=== PATIENT | female | born 1960 | race Caucasian/White ===

== ENCOUNTER → 2017-12-28 09:37 | Outpatient (CLI) | payer OTHER, SELFPAY ==
[2017-12-28 12:41] LABS: ALB/GLOB Ratio 0.9 RATIO (0.9-2.4); AST(SGOT) 20 U/L (15-37); Alanine Aminotransfer ALT/SGPT 30 U/L (13-56); Albumin, Serum 3.8 g/dL (3.2-5.0); Alkaline Phosphatase 69 U/L (45-117); Anion Gap 3 (5-15); BUN 14 mg/dL (7-18); BUN/Creat Ratio 17.5 RATIO (10-20); Calcium,Total 9.1 mg/dL (8.5-10.1); Chloride 106 mmol/L (98-107); Cholesterol 203 mg/dL (200); EST Glomerular Filtration Rate 79 mL/min (>60); Est Glom Filt Rate - Afr Amer 95 mL/min (>60); Globulin 4.2 g/dL (2.2-4.2); Glucose 89 mg/dL (74-106); High Density Lipoprotein 44 mg/dL; Potassium 4.6 mmol/L (3.5-5.1); Sodium Level 139 mmol/L (136-145); Thyroid Stim Hormone (TSH) 0.03 uIU/mL (0.358-3.74); Triglycerides 192 mg/dL; Very Low Density Lipoprotein 38 mg/dL (5-40)
== END ==
PROVIDERS: Family Provider Family Medicine; PCP Family Medicine; Visit Provider Family Medicine
DX: E78.2 Mixed hyperlipidemia (principal)
CPT/HCPCS: 36415; 80053; 80061; 84443

== ENCOUNTER → 2018-12-25 | Outpatient (CLI) | payer MEDICARE, SELFPAY ==
[2018-12-25 10:58] VITALS: BMI 46.2
[2018-12-25 13:22] LABS: ALB/GLOB Ratio 0.9 RATIO (0.9-2.4); AST(SGOT) 21 U/L (15-37); Alanine Aminotransfer ALT/SGPT 31 U/L (13-56); Albumin, Serum 3.8 g/dL (3.2-5.0); Alkaline Phosphatase 66 U/L (45-117); Anion Gap 8 (5-15); BUN 18 mg/dL (7-18); BUN/Creat Ratio 23.2 RATIO (10-20); Calcium,Total 8.6 mg/dL (8.5-10.1); Chloride 105 mmol/L (98-107); Cholesterol 149 mg/dL (200); Creatinine, Serum 0.78 mg/dL (0.55-1.02); EST Glomerular Filtration Rate 81 mL/min (>60); Est Glom Filt Rate - Afr Amer 99 mL/min (>60); Globulin 4.1 g/dL (2.2-4.2); Glucose 90 mg/dL (74-106); High Density Lipoprotein 48 mg/dL; Potassium 4.3 mmol/L (3.5-5.1); Protein, Total 7.9 g/dL (6.4-8.2); Sodium Level 141 mmol/L (136-145); Thyroid Stim Hormone (TSH) 6.24 uIU/mL (0.358-3.74); Triglycerides 166 mg/dL; Very Low Density Lipoprotein 33 mg/dL (5-40)
== END | disposition home or self-care (01) ==
PROVIDERS: Family Provider Family Medicine; PCP Family Medicine; Visit Provider Family Medicine
DX: E03.9 Hypothyroidism, unspecified (principal); E78.5 Hyperlipidemia, unspecified
CPT/HCPCS: 36415; 80053; 80061; 84443

== ENCOUNTER → 2019-01-10 | Outpatient (CLI) | payer MEDICARE, SELFPAY ==
[2018-12-25 10:58] VITALS: BMI 46.2
[2019-01-10 13:15] LABS: T4 Free Direct 0.58 ng/dL (0.76-1.46)
[2019-01-13 12:06] LABS: Thyroid Peroxidase AB 11 IU/mL (0-34)
[2019-01-13 12:48] LABS: Thyroglobulin Antibody 47.3 IU/mL (0.0-0.9)
== END | disposition home or self-care (01) ==
LOC: BIMLAB 10:33
PROVIDERS: Family Provider Family Medicine; PCP Family Medicine; Visit Provider Family Medicine
DX: E03.9 Hypothyroidism, unspecified (principal)
CPT/HCPCS: 36415; 84439; 86376; 86800

== ENCOUNTER → 2019-08-26 10:03 | Outpatient (CLI) | payer MEDICARE, SELFPAY ==
[2019-08-26 09:49] VITALS: BMI 46.2
[2019-08-26 12:46] LABS: ALB/GLOB Ratio 0.9 RATIO (0.9-2.4); AST(SGOT) 16 U/L (15-37); Alanine Aminotransfer ALT/SGPT 32 U/L (13-56); Albumin, Serum 3.7 g/dL (3.2-5.0); Alkaline Phosphatase 65 U/L (45-117); Anion Gap 4 (5-15); BUN 17 mg/dL (7-18); BUN/Creat Ratio 20.7 RATIO (10-20); Calcium,Total 8.8 mg/dL (8.5-10.1); Chloride 107 mmol/L (98-107); Cholesterol 168 mg/dL (200); Creatinine, Serum 0.82 mg/dL (0.55-1.02); EST Glomerular Filtration Rate 76 mL/min (>60); Est Glom Filt Rate - Afr Amer 92 mL/min (>60); Glucose 107 mg/dL (74-106); High Density Lipoprotein 50 mg/dL; Protein, Total 7.7 g/dL (6.4-8.2); Sodium Level 141 mmol/L (136-145); T4 Free Direct 0.64 ng/dL (0.76-1.46); Thyroid Stim Hormone (TSH) 3.11 uIU/mL (0.358-3.74); Triglycerides 220 mg/dL; Very Low Density Lipoprotein 44 mg/dL (5-40)
== END ==
PROVIDERS: PCP Family Medicine; Visit Provider Family Medicine
DX: I10 Essential (primary) hypertension (principal); G56.01 Carpal tunnel syndrome, right upper limb
CPT/HCPCS: 36415; 80053; 80061; 84439; 84443

== ENCOUNTER → 2020-04-29 07:39 | Outpatient (CLI) | payer MEDICARE, SELFPAY ==
[2020-04-20 12:53] VITALS: BMI 45.8
--- NOTE | 2020-04-29 07:40 | US_ITS ---
HISTORY: gabrielle colored stools COMPARISON: None TECHNIQUE: Sonographic images of the right upper quadrant of the abdomen using grayscale and color Doppler imaging. Number of images including paperwork: 113 FINDINGS: LIVER: Increased echogenicity with poor penetration with some sparing adjacent to the gallbladder fossa and arely hepatis. Right lobe measures 14.6 cm. GALLBLADDER: No gallstones. No significant gallbladder wall thickening. Sonographic Fields's sign not elicited per the airline lounge receptionist. BILE DUCTS: No significant biliary dilatation. CBD 4.1 mm. PANCREAS: Echogenic visualized pancreas. Tail partially obscured by bowel gas. RIGHT KIDNEY: Unremarkable, 11.7 cm. AORTA: Unremarkable visualized portions of the aorta. INFERIOR VENA CAVA: Unremarkable visualized portions of the inferior vena cava. FREE FLUID: None detected. US/Gallbladder IMPRESSION: No acute abdominal abnormality is sonographically apparent. Hepatic steatosis. at 2337 Reported and signed by: Sierra Phelps MD Electronically Signed: Sierra Phelps MD at 23:37 EDT Tel , Service support ,
== END ==
PROVIDERS: PCP Family Medicine; Referring Provider Family Medicine; Visit Provider Family Medicine
DX: R19.5 Other fecal abnormalities (principal)
CPT/HCPCS: 76705

== ENCOUNTER → 2020-06-28 | Outpatient (CLI) | payer MEDICARE, SELFPAY ==
[2020-06-15 10:05] VITALS: BMI 45.0
== END | disposition home or self-care (01) ==
LOC: LABSPEC 14:51
PROVIDERS: PCP Family Medicine; Referring Provider Surgery; Visit Provider Surgery
DX: R22.1 Localized swelling, mass and lump, neck (principal); L03.90 Cellulitis, unspecified
CPT/HCPCS: 87070; 87075; 87077; 87186; 87205

== ENCOUNTER → 2021-03-02 10:25 | Outpatient (CLI) | payer MEDICARE, SELFPAY ==
[2021-03-02 12:17] LABS: Absolute Lymphocyte Count 1.62 X10^3/uL (0.83-4.51); Absolute Neutrophil Count 2.8 X10^3/uL (2.0-7.7); Basophil# 0.04 X10^3/uL; Basophil% 0.8 % (0-1); Eosinophils% 3.8 % (0-5); Hematocrit 39.3 % (37-47); Hemoglobin 12.8 g/dL (12.0-15.0); Lymphocyte # 1.62 X10^3/ul (0.83-4.51); Lymphocyte % 31.1 % (19-41); Mean Corp Hgb Conc 32.6 g/dL (32-36); Mean Corpuscular Volume 92.3 fL (81-99); Mean Platelet Vol. 11.3 fl (6.2-12.0); Monocyte# 0.51 X10^3/uL; Monocyte% 9.8 % (0-10); NRBC Flagged by Analyzer 0 % (0-5); Neutrophil # 2.83 X10^3/uL (2.7-7.7); Neutrophil % 54.3 % (47-70); Platelet Count 214 K/mm3 (150-450); RBC Distribution Width CV 14.5 % (11.6-14.6); RBC Distribution Width SD 49.2 fl (35.1-43.9); Red Blood Count 4.26 M/mm3 (4.2-5.4); White Blood Count 5.2 K/mm3 (4.4-11.0)
[2021-03-02 12:54] LABS: ALB/GLOB Ratio 0.9 RATIO (0.9-2.4); AST(SGOT) 18 U/L (15-37); Alanine Aminotransfer ALT/SGPT 33 U/L (13-56); Albumin, Serum 3.9 g/dL (3.2-5.0); Alkaline Phosphatase 66 U/L (45-117); Anion Gap 6 (5-15); BUN 13 mg/dL (7-18); BUN/Creat Ratio 14.9 RATIO (10-20); Chloride 104 mmol/L (98-107); Cholesterol 177 mg/dL (200); Creatinine, Serum 0.88 mg/dL (0.55-1.02); EST Glomerular Filtration Rate 70 mL/min (>60); Est Glom Filt Rate - Afr Amer 85 mL/min (>60); Globulin 4.3 g/dL (2.2-4.2); Glucose 99 mg/dL (74-106); High Density Lipoprotein 46 mg/dL; Magnesium 2.2 mg/dL (1.6-2.6); Potassium 3.9 mmol/L (3.5-5.1); Protein, Total 8.2 g/dL (6.4-8.2); Sodium Level 138 mmol/L (136-145); Triglycerides 282 mg/dL; Very Low Density Lipoprotein 56 mg/dL (5-40)
== END ==
PROVIDERS: PCP Family Medicine; Referring Provider Physician Assistant; Visit Provider Physician Assistant
DX: E03.9 Hypothyroidism, unspecified (principal); E78.2 Mixed hyperlipidemia; I10 Essential (primary) hypertension; K21.9 Gastro-esophageal reflux disease without esophagitis
CPT/HCPCS: 36415; 80053; 80061; 83735; 84443; 85025

== ENCOUNTER → 2021-03-16 12:11 | Outpatient (CLI) | payer MEDICARE, SELFPAY ==
--- NOTE | 2021-03-16 12:13 | BI_ITS ---
MAMMOGRAPHY - BILATERAL SCREENING REASON FOR EXAM: Female, 61 years old. Routine annual screening examination. PERTINENT HISTORY: Non-contributory. TECHNIQUE: Digital bilateral breast irineo (3D mammographic acquisition) in the CC and MLO projections. 2-D mediolateral oblique (MLO) and craniocaudad (CC) views of both breasts were obtained. CAD: Full Field Digital Mammography with Computer Added Detection was performed. COMPARISON: Comparison is made with prior outside examination dated 03/26/2017. FINDINGS: Breast Composition: The breasts are heterogeneously dense, which may obscure small masses. There are no dominant masses or suspicious calcifications. No other significant abnormalities are identified. There has been no significant change since the prior study. BI/SCRN MAMM (CAD)W/IRINEO BILAT IMPRESSION: Stable bilateral screening mammogram. Yearly follow-up mammogram recommended. (A) ASSESSMENT CATEGORY: BIRADS Category 1: Negative. A letter regarding these results will be sent to the patient by the facility within 30 days. Approximately 10% of breast cancers are not detected by mammography. A normal mammogram should not delay biopsy of a clinically suspicious abnormality. [id number] Electronically Signed: Tariq Arnold MD at 15:35 EDT , Service support ,
== END ==
PROVIDERS: PCP Family Medicine; Referring Provider Physician Assistant; Visit Provider Physician Assistant
DX: Z12.31 Encounter for screening mammogram for malignant neoplasm of breast (principal)
CPT/HCPCS: 77063; 77067

== ENCOUNTER 2021-04-12 10:54 | Day surgery (SDC) | payer MEDICARE, SELFPAY ==
--- NOTE | 2021-04-08 | IMM_PTH ---
PATIENT: LIAN DAMON LOC: EN U#:[id number] AGE/SX: 61/F ROOM: RE04/12/[address]: Dr. Jaylon Medina DO : 1960 BED: DIS: 04/12/2021 SPEC #: [id number] RECD: 04/13/21 13:51 STATUS: FELICIA REMike #: [id number] GABE: 04/08/21 00:[address]: Jaylon Medina DEPT: IMMUNOHISTOCHEMISTRY RECD BY: Darcy Crowe ENTERED: 04/13/21 13:52 SP TYPE: IMMUNO OTHR DR: Dr. Mehran Wilson, DO Tissues: A - Stomach, NOS Procedures: H Pylori (initial) PHYSICIAN & INSTITUTION [place] [id number] SPECIMEN INFORMATION: Tissue Source: A ? Antrum biopsy Clinical Info: GERD, Gonzalez?s esophagus Specimen Number: [id number] CPT code: 15421 METHODOLOGY: Deparaffinized sections of prefer/formalin-fixed tissue or PAP/DQ stained slides are incubated with monoclonal/polyclonal antibodies/oligonucleotide probes. Localization is made via biotin free immunoperoxidase method. Appropriate controls are performed and reacted as expected. Results on target cell population are indicated in the following table: RESULTS: ANTIBODY / CLONE RESULT Block A H Pylori (polyclonal) negative These tests were developed and their performance characteristics determined by [facility]. They may not have been cleared or approved by the U.S. Food and Drug Administration. The FDA has determined that such clearance or approval is not necessary. INTERPRETATION: A. Antrum, biopsy: Negative for Helicobacter pylori organisms. ANJANA:remi 04/14/2021
[2021-04-12] VITALS (7 sets, daily range): BP systolic 123–138; BP diastolic 77–87; PULSE 51–65; RESP 16–18; TEMP 36.1–37.4; O2SAT 94–98; BMI 47.5
--- NOTE | 2021-04-12 | GASB_PTH ---
PATIENT: LIAN DAMON LOC: EN U#:[id number] AGE/SX: 61/F ROOM: RE04/12/[address]: Dr. Jaylon Medina DO : 1960 BED: DIS: 04/12/2021 SPEC #: [id number] RECD: 04/12/21 15:30 STATUS: FELICIA JORDEN #: [id number] GABE: 04/12/21 00:[address]: Jaylon Medina DEPT: SURGICAL PATHOLOGY RECD BY: Moises Cochran ENTERED: 04/13/21 09:51 SP TYPE: Gastric Bx OTHR DR: Dr. Mehran Wilson DO Tissues: A - Gastric mucous membrane B - Esophageal mucous membrane C - Gastric mucous membrane Procedures: Special Stain Group II Surgery Specimen Level IV Alcian Blue/PAS (control) HEADER OPERATION: Colonoscopy, EGD ([facility]) PRE-OP DIAGNOSIS: GERD, Gonzalez?s esophagus TISSUE SUBMITTED: A ? Biopsy antrum for H. pylori and path, B ? Biopsy distal esophagus, C ? Biopsy hepatic flexure polyp MICROSCOPIC DIAGNOSIS A. Antrum biopsy: Mild gastritis. See microscopic description and comment. B. Distal esophagus, biopsy: Fragments of gastroesophageal mucosa with mild chronic inflammation. Intestinal metaplasia (goblet cell metaplasia) not identified. See comment. C. Hepatic flexure polyp, biopsy: Fragments of tubular adenoma. SJ:rg 04/14/2021 COMMENT A. The results of immunohistochemistry for Helicobacter pylori will be reported separately ([id number]). B. Alcian blue/PAS stain with matched control is used in the evaluation of the specimen. MICROSCOPIC DESCRIPTION Slides are reviewed. A. The specimen shows fragments of gastric mucosa with chronic inflammatory cell infiltrates in the lamina propria consisting of lymphocytes and plasma cells, consistent with mild chronic gastritis. GROSS DESCRIPTION A - Received in fixative is one container labeled with the patient's name and designated antrum biopsy. The specimen consists of two irregular fragments of light acosta soft tissue that in aggregate measure 0.5 x 0.5 x 0.1 cm. The specimen is totally submitted in one cassette. B - Received in fixative is one container labeled with the patient's name and designated biopsy distal esophagus. The specimen consists of two irregular fragments of light acosta soft tissue that in aggregate measure 0.6 x 0.3 x 0.1 cm. The specimen is totally submitted in one cassette. C - Received in fixative is one container labeled with the patient's name and designated biopsy hepatic flexure polyp. The specimen consists of multiple irregular fragments of light acosta soft tissue that in aggregate measure 0.7 x 0.3 x 0.1 cm. The specimen is totally submitted in one cassette. / SJ:rg 04/13/21 TC:1 CPT: 30861 x3, 81950
[2021-04-12] MEDS: Lactated Ringers 1,000 ML 100 ML IV (11:54)
--- NOTE | 2021-04-12 12:00 | HP.PCM_ITS ---
History and Physical Date of Admission: 04/12/21 KEITH DAMON, is a 61 F who presents to the office today to schedule surveillance of Gonzalez's esophagus and a personal history of polyps. She says that she was diagnosed with Gonzalez's esophagus several years ago. She says she has been on her omeprazole therapy. She is really bothered that her reflux gets bad to the point where it affects her singing. She says she would do anything so she could sing. She denies any dysphagia. She denies any chest pain or shortness of breath. She does not know she has a hiatal hernia. Her weight has been stable. She underwent colonoscopy 5 years ago and was discovered to have multiple adenomatous polyps that were removed. She is not having problems with her bowels at this time as long as she eats a balanced diet. She is not smoking cigarettes. She does take a 325 mg aspirin on a daily basis. She does not drink alcohol on a daily basis. She has no history of sleep apnea. She has not seen any blood in her stool. She denies any constipation or diarrhea. All other 16 review of systems are negative except of her body mentioned HPI. ROS Const Constitutional: No anorexia, fatigue, fever(s), weight change or sleep problems Eyes Eyes: No change in vision ENT ENT: Positive for tinnitus; No tongue swelling or throat swelling Resp Respiratory: No cough or shortness of breath Cardio Cardiology: Positive for leg pain with exertion and dyspnea on exertion Gastro GI: Positive for bloating and heartburn Genitourinary-Female: No difficulty urinating or burning urination Musc Musculoskeletal: Positive for joint pain, back pain, numbness, tingling, Arthritis and leg pain with exertion Skin Skin: No hair loss in leg, yellowing of the eye, itchy eyes, rash, skin ulcer or skin swelling Neuro Neurology: Positive for numbness and tingling; No confusion or memory loss Psych Psychiatric: No anxiety, No confusion and No memory loss Endo Endocrine: Positive for cold intolerance and heat intolerance; No fatigue or weight change Aller/Imm Allergy/Immunologic: No itchy eyes, throat swelling or tongue swelling Luis A/Lymp Hematologic/Lymphatic: Positive for easy bruising Exam Const General: cooperative and comfortable Nutritional Appearance: average body habitus and well nourished HENMT Head: normal to inspection Ears: hearing grossly normal bilaterally Nose: external nose normal Face and sinus: normal facial exam Mouth: oral mucosae normal Throat: posterior oropharynx normal Eyes General: appearance normal, both eyes and all related structures Neck Neck: normal visual inspection Chest Chest palpation & inspection: normal inspection of the chest and normal palpation of entire chest wall Resp Effort & Inspection: normal respiratory effort Auscultation: Bilateral: Clear to Auscultation Cardio Palpation: normal PMI Rate: regular rate Rhythm: regular rhythm GI Inspection: normal to inspection Auscultation: normal bowel sounds Percussion: normal to percussion Palpation: no hepatosplenomegaly Skin General: no rashes or lesions noted Neuro General: patient alert Extrem General: normal to inspection Psych Affect: normal affect Quality Reporting [facility] Screening ([facility]) Smoking Status: Never smoker Assessment and Plan Assessment and Plan (1) History of colonoscopy: Status: Acute Comment: w/ann 01/04/15, w/ann 11/20/11, Medications: New: polyethylene glycol 3350 (Miralax) 17 grams PO Q10M 238 grams 0RF Plan - Dr. Iyer Friend, DO: Patient has a personal history of polyps. She will undergo colonoscopy to the cecum. She was explained alternatives, risk, benefits including hours any missed polyps, perforation, bleeding, need for emergent surgery and . She would have an ASA of 3 she will take this with MiraLAX prep. Patient Instructions: Patient has a personal history of polyps (2) GERD (gastroesophageal reflux disease): Status: Chronic Qualifiers: Esophagitis presence: without esophagitis Qualified Code(s): K21.9 - Gastro-esophageal reflux disease without esophagitis Plan - Dr. Iyer Friend, DO: I will not change her dose of omeprazole at this time. It depends on what we see doing upper endoscopy.. (3) Barretts esophagus: Status: Acute Plan - Dr. Iyer Friend, DO: We will assess her esophagus to see if she has short segment versus long segment Gonzalez's esophagus. We will also see if she needs to be on dual PPI therapy and whether we should assess her for antireflux surgery. Coding Level of Care Code Off vis,new,level 3 Diagnoses History of colonoscopy Z98.890 GERD (gastroesophageal reflux disease) K21.9 Esophagitis presence: without esophagitis Barretts esophagus K22.70 03/29/21 0911 This is an updated H&P. No changes have been seen since patient underwent evaluation in the office.
--- NOTE | 2021-04-12 13:04 | OP.EGD_ITS ---
Patient Name: Carleen Garcia Procedure Date: 04/12/2021 12:10 PM Date of : 1960 Age: 61 Procedure: Upper GI endoscopy Indications: Heartburn Providers: Jaylon Medina DO Medicines: Monitored Anesthesia Care Patient Profile: This is a 61 year old female. Refer to note in patient chart for documentation of history and physical. Patient has symptoms. She is status post EGD for Gonzalez's biopsy within the past five years. Complications: No immediate complications. Procedure: Pre-Anesthesia Assessment: - Prior to the procedure, a History and Physical was performed, and patient medications and allergies were reviewed. The patient is competent. The risks and benefits of the procedure and the sedation options and risks were discussed with the patient. All questions were answered and informed consent was obtained. Patient identification and proposed procedure were verified by the physician in the pre-procedure area. Mental Status Examination: alert and oriented. Airway Examination: normal oropharyngeal airway and neck mobility. Respiratory Examination: clear to auscultation. CV Examination: normal. Prophylactic Antibiotics: The patient does not require prophylactic antibiotics. Prior Anticoagulants: The patient has taken no previous anticoagulant or antiplatelet agents. ASA Grade Assessment: II - A patient with mild systemic disease. After reviewing the risks and benefits, the patient was deemed in satisfactory condition to undergo the procedure. The anesthesia plan was to use moderate sedation / analgesia (conscious sedation). Immediately prior to administration of medications, the patient was re-assessed for adequacy to receive sedatives. The heart rate, respiratory rate, oxygen saturations, blood pressure, adequacy of pulmonary ventilation, and response to care were monitored throughout the procedure. The physical status of the patient was re-assessed after the procedure. After obtaining informed consent, the endoscope was passed under direct vision. Throughout the procedure, the patient's blood pressure, pulse, and oxygen saturations were monitored continuously. The Endoscope was introduced through the mouth, and advanced to the second part of duodenum. The upper GI endoscopy was accomplished without difficulty. The patient tolerated the procedure well. Moderate Sedation: Moderate (conscious) sedation was administered by the endoscopy nurse and supervised by the endoscopist. The patient's oxygen saturation, heart rate, blood pressure and response to care were monitored. Scope In: 12:18:35 PM Scope Out: 12:22:20 PM Total Procedure Duration Time 0 hours 3 minutes 45 seconds Findings: There were esophageal mucosal changes suspicious for Gonzalez's esophagus present in the lower third of the esophagus. Mucosa was biopsied with a cold forceps for histology in 4 quadrants at intervals of 1 cm in the lower third of the esophagus. A total of 3 specimen bottles were sent to pathology. Verification of patient identification for the specimen was done. Estimated blood loss was minimal. The entire examined stomach was normal. The second portion of the duodenum was normal. Impression: - Esophageal mucosal changes suspicious for Gonzalez's esophagus. Biopsied. - Normal stomach. - Normal second portion of the duodenum. - The findings are suspicious for Gonzalez's esophagus. - Atrophic gastritis. Biopsied. - Normal second portion of the duodenum. Recommendation: - Discharge patient to home. - Resume previous diet. - Continue present medications. - Await pathology results. - Repeat upper endoscopy in 1 year for surveillance. - Return to GI office in 1 week. Procedure Code(s): --- Professional --- 69948, Esophagogastroduodenoscopy, flexible, transoral; with biopsy, single or multiple CPT copyright 2017 [employer]. All rights reserved. The codes documented in this report are preliminary and upon beautician apprentice review may be revised to meet current compliance requirements. Jaylon Medina DO 04/12/2021 1:03:42 PM This report has been signed electronically. Number of Addenda: 1 Note Initiated On: 04/12/2021 12:10 PM Addendum Number: 1 Addendum Date: 03/09/2022 4:16:38 PM MAC was used instead of moderate sedation for this patient. Jaylon Medina DO 03/09/2022 4:16:43 PM This report has been signed electronically.
--- NOTE | 2021-04-12 13:05 | OP.CCLET_ITS ---
03/09/2022 Mehran Wilson Re : Upper GI endoscopy procedure for Carleen Garcia Dear Dr. Wilson This procedure was performed on Monday, April 12, 2021. My impressions and recommendations are as follows: Impressions : - Esophageal mucosal changes suspicious for Gonzalez's esophagus. Biopsied. - Normal stomach. - Normal second portion of the duodenum. - The findings are suspicious for Gonzalez's esophagus. - Atrophic gastritis. Biopsied. - Normal second portion of the duodenum. Recommendations : - Discharge patient to home. - Resume previous diet. - Continue present medications. - Await pathology results. - Repeat upper endoscopy in 1 year for surveillance. - Return to GI office in 1 week. My findings are described in the full procedure note, which is enclosed. If I can be of further assistance, please feel free to contact me at . Sincerely, Jaylon Medina, 04/12/2021 1:03:42 PM This report has been signed electronically.
--- NOTE | 2021-04-12 13:10 | OP.COLON_ITS ---
Patient Name: Carleen Garcia Procedure Date: 04/12/2021 12:24 PM Date of : 1960 Age: 61 Procedure: Colonoscopy Indications: Screening for colorectal malignant neoplasm Providers: Jaylon Medina DO Medicines: Monitored Anesthesia Care Patient Profile: This is a 61 year old female. Refer to note in patient chart for documentation of history and physical. Patient has symptoms. She is status post EGD for Gonzalez's biopsy within the past five years. Is status post in the distant past. This is a 61 year old female. Refer to note in patient chart for documentation of history and physical. Last Colonoscopy: 10 years ago. Complications: No immediate complications. Procedure: Pre-Anesthesia Assessment: - Prior to the procedure, a History and Physical was performed, and patient medications and allergies were reviewed. The patient is competent. The risks and benefits of the procedure and the sedation options and risks were discussed with the patient. All questions were answered and informed consent was obtained. Patient identification and proposed procedure were verified by the physician in the pre-procedure area. Mental Status Examination: alert and oriented. Airway Examination: normal oropharyngeal airway and neck mobility. Respiratory Examination: clear to auscultation. CV Examination: normal. Prophylactic Antibiotics: The patient does not require prophylactic antibiotics. Prior Anticoagulants: The patient has taken no previous anticoagulant or antiplatelet agents. ASA Grade Assessment: II - A patient with mild systemic disease. After reviewing the risks and benefits, the patient was deemed in satisfactory condition to undergo the procedure. The anesthesia plan was to use moderate sedation / analgesia (conscious sedation). Immediately prior to administration of medications, the patient was re-assessed for adequacy to receive sedatives. The heart rate, respiratory rate, oxygen saturations, blood pressure, adequacy of pulmonary ventilation, and response to care were monitored throughout the procedure. The physical status of the patient was re-assessed after the procedure. After I obtained informed consent, the scope was passed under direct vision. Throughout the procedure, the patient's blood pressure, pulse, and oxygen saturations were monitored continuously. The Colonoscope was introduced through the anus and advanced to the cecum, identified by appendiceal orifice and ileocecal valve. The colonoscopy was performed without difficulty. The patient tolerated the procedure well. The quality of the bowel preparation was adequate. Moderate Sedation: Moderate (conscious) sedation was personally administered by an anesthesia professional. The following parameters were monitored: oxygen saturation, heart rate, blood pressure, respiratory rate, EKG, adequacy of pulmonary ventilation, and response to care. Scope In: 12:26:48 PM Scope Withdrawal Time 0 hours 13 minutes 47 seconds Scope Out: 12:52:16 PM Total Procedure Duration Time 0 hours 25 minutes 28 seconds Findings: A small polyp was found in the hepatic flexure. The polyp was sessile. The polyp was removed with a jumbo cold forceps. Resection and retrieval were complete. Estimated blood loss was minimal. The exam was otherwise without abnormality on direct and retroflexion views. The perianal and digital rectal examinations were normal. Impression: - One small polyp at the hepatic flexure, removed with a jumbo cold forceps. Resected and retrieved. - The examination was otherwise normal on direct and retroflexion views. - Two, non-bleeding polyps in the colon, removed with a jumbo cold forceps. Resected and retrieved. Biopsied. Recommendation: - Discharge patient to home. - Resume previous diet. - Continue present medications. - Await pathology results. - Repeat colonoscopy in 5 years for surveillance based on pathology results. - Return to GI office in 2 weeks. Procedure Code(s): --- Professional --- 24539, Colonoscopy, flexible; with biopsy, single or multiple CPT copyright 2017 [employer]. All rights reserved. The codes documented in this report are preliminary and upon promotions coordinator review may be revised to meet current compliance requirements. Jaylon Medina DO 04/12/2021 1:09:49 PM This report has been signed electronically. Number of Addenda: 1 Note Initiated On: 04/12/2021 12:24 PM Addendum Number: 1 Addendum Date: 03/09/2022 4:16:57 PM MAC was used instead of moderate sedation for this patient. Jaylon Medina DO 03/09/2022 4:17:01 PM This report has been signed electronically.
--- NOTE | 2021-04-12 13:11 | OP.CCLET_ITS ---
03/09/2022 Mehran Wilson Re : Colonoscopy procedure for Carleen Garcia Dear Dr. Wilson This procedure was performed on Monday, April 12, 2021. My impressions and recommendations are as follows: Impressions : - One small polyp at the hepatic flexure, removed with a jumbo cold forceps. Resected and retrieved. - The examination was otherwise normal on direct and retroflexion views. - Two, non-bleeding polyps in the colon, removed with a jumbo cold forceps. Resected and retrieved. Biopsied. Recommendations : - Discharge patient to home. - Resume previous diet. - Continue present medications. - Await pathology results. - Repeat colonoscopy in 5 years for surveillance based on pathology results. - Return to GI office in 2 weeks. My findings are described in the full procedure note, which is enclosed. If I can be of further assistance, please feel free to contact me at . Sincerely, Jaylon Friend, 04/12/2021 1:09:49 PM This report has been signed electronically.
== END 2021-04-12 13:52 ==
LOC: EN 10:55 → AC 10:58
PROVIDERS: PCP Family Medicine; Referring Provider Family Medicine; Visit Provider Internal Medicine Gastroenterology
PROC: 0DJD8ZZ Inspection of Lower Intestinal Tract, Via Natural or Artificial Opening Endoscopic (ICD-10-PCS; CPT 45378; principal; 2021-04-12 11:55)
DX: Z12.11 Encounter for screening for malignant neoplasm of colon (principal); D12.3 Benign neoplasm of transverse colon; K29.40 Chronic atrophic gastritis without bleeding; K21.9 Gastro-esophageal reflux disease without esophagitis; E78.5 Hyperlipidemia, unspecified; E03.9 Hypothyroidism, unspecified; K58.9 Irritable bowel syndrome, unspecified; F20.9 Schizophrenia, unspecified; M19.90 Unspecified osteoarthritis, unspecified site; G25.81 Restless legs syndrome; G56.03 Carpal tunnel syndrome, bilateral upper limbs; Z79.899 Other long term (current) drug therapy
CPT/HCPCS: 43239; 45380; 88305; 88313; 88342; J7120; J2405

== ENCOUNTER → 2021-05-12 10:22 | Outpatient (CLI) | payer MEDICARE, SELFPAY ==
[2021-05-17 16:26] LABS: HPV Reflexed? NOT INDICATED
== END ==
PROVIDERS: PCP Family Medicine; Visit Provider Family Medicine
DX: Z00.00 Encounter for general adult medical examination without abnormal findings (principal)
CPT/HCPCS: 88175; G0145

== ENCOUNTER 2021-08-17 07:39 | Outpatient (CLI) | payer MEDICARE, SELFPAY ==
--- NOTE | 2021-08-17 07:45 | US_ITS ---
STUDY: ABDOMINAL ULTRASOUND - ELASTOGRAPHY REASON FOR VISIT: Female, 61 years old. Ethanol abuse. TECHNIQUE: Liver stiffness measurements were obtained on a [employer] RS 85 ultrasound machine using a CA 1-7 probe following the SRU guidelines. 3 measurements were obtained using a 2-D-SWE method. The IQR/M was 24 % suggesting a quality data set. TECHNICAL QUALITY: Adequate. COMPARISON: None. FINDINGS: Liver: Fatty infiltration of the liver. Median liver stiffness measured 7.8 kPa. US/Elastography Parenchyma/Organ IMPRESSION: Liver stiffness measures 7.8 kPa compatible with F2/3 Metavir score. Electronically Signed: Tariq Arnold MD at 15:51 EST ,
--- NOTE | 2021-08-17 07:46 | US_ITS ---
STUDY: ABDOMINAL ULTRASOUND - RIGHT UPPER QUADRANT REASON FOR VISIT: Female, 61 years old Alcohol abuse TECHNIQUE: Ultrasound evaluation of the right upper quadrant was performed with real-time and static giordano-scale imaging. TECHNICAL QUALITY: Adequate. COMPARISON: None. FINDINGS: Liver: The liver measures 20 cm. Mild diffuse homogeneous hyperechogenicity of the pancreatic parenchyma. Echotexture is normal. The bile ducts are within normal limits. There is hepatic color flow. The direction of portal flow is hepatopetal. There is no demonstrated mass lesion. Gallbladder: Mild distention of the gallbladder.. The gallbladder wall measures 2 mm. There is a negative sonographic Fields''s sign. There is no pericholecystic fluid. There are no gallstones. Common Bile Duct (C.B.D.): The common bile duct measures 4.4 mm. Pancreas: There is diffuse hyperechogenicity of the pancreatic parenchyma. No focal lesion. No peripancreatic fluid. There is partial obscuration of the pancreatic tail. Right Kidney: The right kidney measures 11.9 x 5.7 x 4.4 cm. The right cortex measures 2.1 cm. There is no demonstrated renal mass or cyst. There is no right hydronephrosis. US/Abdomen Limited IMPRESSION: 1. Fatty infiltration of the liver. 2. Hyperechogenicity of the pancreatic parenchyma, potentially representing a pancreatitis. 3. Partial nonvisualization of pancreatic tail due to overlying bowel gas. Electronically Signed: Moises Sanchez MD at 2:25 EST ,
== END 2021-08-17 23:59 | disposition home or self-care (01) ==
LOC: US 07:43
PROVIDERS: PCP Family Medicine; Referring Provider Internal Medicine Gastroenterology; Visit Provider Internal Medicine Gastroenterology
DX: Z72.89 Other problems related to lifestyle (principal)
CPT/HCPCS: 76705; 76981

== ENCOUNTER 2021-09-20 09:59 | Outpatient (CLI) | payer MEDICARE, SELFPAY ==
[2021-09-20 10:33] LABS: Erythrocyte Sedimentation Rate 8 mm/hr (0-30)
[2021-09-20 10:34] LABS: Absolute Lymphocyte Count 1.27 X10^3/uL (0.83-4.51); Absolute Neutrophil Count 2.5 X10^3/uL (2.0-7.7); Basophil# 0.03 X10^3/uL; Basophil% 0.7 % (0-1); Eosinophil# 0.21 X10^3/uL; Eosinophils% 4.7 % (0-5); Hematocrit 37.5 % (37-47); Hemoglobin 12.6 g/dL (12.0-15.0); Lymphocyte # 1.27 X10^3/ul (0.83-4.51); Lymphocyte % 28.3 % (19-41); Mean Corp Hgb Conc 33.6 g/dL (32-36); Mean Corpuscular Hgb 30.4 pg (27.0-32.0); Mean Corpuscular Volume 90.6 fL (81-99); Mean Platelet Vol. 10.9 fl (6.2-12.0); Monocyte# 0.43 X10^3/uL; Monocyte% 9.6 % (0-10); NRBC Flagged by Analyzer 0 % (0-5); Neutrophil # 2.53 X10^3/uL (2.7-7.7); Neutrophil % 56.5 % (47-70); Platelet Count 185 K/mm3 (150-450); RBC Distribution Width CV 14.7 % (11.6-14.6); RBC Distribution Width SD 49.3 fl (35.1-43.9); Red Blood Count 4.14 M/mm3 (4.2-5.4); White Blood Count 4.5 K/mm3 (4.4-11.0)
[2021-09-20 11:16] LABS: AST(SGOT) 26 U/L (15-37); Alanine Aminotransfer ALT/SGPT 39 U/L (13-56); Albumin, Serum 3.8 g/dL (3.2-5.0); Alkaline Phosphatase 72 U/L (45-117); Anion Gap 6 (5-15); BUN 14 mg/dL (7-18); BUN/Creat Ratio 14.2 RATIO (10-20); CRP < 2.90 mg/L (0.0-3.0); Calcium,Total 9.1 mg/dL (8.5-10.1); Chloride 107 mmol/L (98-107); Creatinine, Serum 0.99 mg/dL (0.55-1.02); EST Glomerular Filtration Rate 61 mL/min (>60); Est Glom Filt Rate - Afr Amer 74 mL/min (>60); Globulin 3.9 g/dL (2.2-4.2); Glucose 103 mg/dL (74-106); LDH 203 U/L (84-246); Potassium 3.8 mmol/L (3.5-5.1); Protein, Total 7.7 g/dL (6.4-8.2); Sodium Level 139 mmol/L (136-145)
[2021-09-20 11:34] LABS: HIV - WCH Non-Reactive (Nonreactive)
[2021-09-21 14:11] LABS: Anti-Centromere B Ab <0.2 AI (0.0-0.9); Anti-Chromatin <0.2 AI (0.0-0.9); Anti-Jo <0.2 AI (0.0-0.9); Anti-Scleroderma-70 AB <0.2 AI (0.0-0.9); RNP Ab <0.2 AI (0.0-0.9); SJOGREN'S Anti-SS-A test 0.2 AI (0.0-0.9); SJOGREN'S Anti-SS-B test < 0.2 AI (0.0-0.9); Smith Ab <0.2 AI (0.0-0.9)
[2021-09-21 16:14] LABS: Anti-Mitochondrial AB <20.0 Units (0.0-20.0); Anti-dsDNA Ab <1 IU/mL (0-9)
[2021-09-22 22:07] LABS: Angiotensin Convert Enzyme 66 U/L (14-82); Ceruloplasmin 25.7 mg/dL (19.0-39.0); Cytoplasmic Ab (C-ANCA) <1:20 titer (Neg:<1:20)
[2021-09-23 12:51] LABS: Anti-Smooth Muscle ABS 13 Units (0-19); Copper, Serum or Plasma 113 ug/dL (80-158); Haptoglobin 155 mg/dL (33-346); Perinuclear Ab (P-ANCA) <1:20 titer (Neg:<1:20)
== END 2021-09-20 23:59 | disposition home or self-care (01) ==
LOC: LAB 10:03
PROVIDERS: PCP Family Medicine; Visit Provider Internal Medicine Gastroenterology
DX: K76.0 Fatty (change of) liver, not elsewhere classified (principal); G56.02 Carpal tunnel syndrome, left upper limb; K21.9 Gastro-esophageal reflux disease without esophagitis
CPT/HCPCS: 36415; 80053; 82164; 82390; 82525; 83010; 83516; 83615; 85025; 85652; 86140; 86225; 86235; 86256; 86703

== ENCOUNTER → 2021-11-16 | Outpatient (CLI) | payer MEDICARE, SELFPAY ==
--- NOTE | 2021-11-16 10:26 | RAD_ITS ---
INDICATION: left hip pain EXAMINATION/TECHNIQUE: X-RAY - LEFT XR Hip Unilateral with Pelvis when performed; 2-3 Views 3 VIEWS COMPARISON: None. FINDINGS: SOFT TISSUES: No soft tissue swelling or gas. No radiopaque foreign body. BONES/JOINTS: No acute fracture or subluxation.. Normal alignment. Preservation of the joint space.. No sclerotic or destructive changes observed. Moderate osteophyte formation from the acetabular lip bilaterally. Joint spaces are maintained. RAD/HIP, UNI W/ Pelvis 2-3 Views IMPRESSION: 1. No evidence of fracture destructive bony process malalignment or joint space narrowing. 2. Moderate osteophyte formation from the acetabular lip bilaterally. Electronically Signed: Aniket Lauren MD at 21:23 EDT ,
== END | disposition home or self-care (01) ==
LOC: RAD 10:25
PROVIDERS: PCP Family Medicine; Referring Provider Internal Medicine Gastroenterology; Visit Provider Internal Medicine Gastroenterology
DX: M25.552 Pain in left hip (principal); M54.9 Dorsalgia, unspecified
CPT/HCPCS: 73502

== ENCOUNTER → 2022-03-20 | Outpatient (CLI) | payer MEDICARE, SELFPAY ==
--- NOTE | 2022-03-20 12:00 | BI_ITS ---
MAMMOGRAPHY - BILATERAL SCREENING REASON FOR EXAM: Female, 62 years old. Routine annual screening examination. PERTINENT HISTORY: Non-contributory. TECHNIQUE: Digital bilateral breast irineo (3D mammographic acquisition) in the CC and MLO projections. 2-D mediolateral oblique (MLO) and craniocaudad (CC) views of both breasts were obtained. CAD: Full Field Digital Mammography with Computer Added Detection was performed. COMPARISON: Comparison is made with prior study 03/16/2021. FINDINGS: Breast Composition: The breasts are heterogeneously dense, which may obscure small masses. There are no dominant masses or suspicious calcifications. Stable small benign-appearing bilateral axillary lymph nodes. No other significant abnormalities are identified. There has been no significant change since the prior study. BI/SCRN MAMM (CAD)W/IRINEO BILAT IMPRESSION: Stable bilateral screening mammogram. Yearly follow-up mammogram recommended. (A) ASSESSMENT CATEGORY: BIRADS Category 2: Benign. A letter regarding these results will be sent to the patient by the facility within 30 days. Approximately 10% of breast cancers are not detected by mammography. A normal mammogram should not delay biopsy of a clinically suspicious abnormality. [id number] Electronically Signed: Tariq Arnold MD at 13:26 EDT ,
== END | disposition home or self-care (01) ==
LOC: OPBI 11:49
PROVIDERS: PCP Family Medicine; Visit Provider Family Medicine
DX: Z12.31 Encounter for screening mammogram for malignant neoplasm of breast (principal)
CPT/HCPCS: 77063; 77067

== ENCOUNTER → 2022-03-22 | Outpatient (CLI) | payer MEDICARE, SELFPAY ==
[2022-03-22 12:48] LABS: ALB/GLOB Ratio 0.9 RATIO (0.9-2.4); AST(SGOT) 24 U/L (15-37); Alanine Aminotransfer ALT/SGPT 40 U/L (13-56); Albumin, Serum 3.8 g/dL (3.2-5.0); Alkaline Phosphatase 70 U/L (45-117); Anion Gap 5 (5-15); BUN 11 mg/dL (7-18); BUN/Creat Ratio 13.1 RATIO (10-20); Calcium,Total 9.3 mg/dL (8.5-10.1); Chloride 106 mmol/L (98-107); Cholesterol 212 mg/dL (200); Creatinine, Serum 0.84 mg/dL (0.55-1.02); EST Glomerular Filtration Rate 74 mL/min (>60); Est Glom Filt Rate - Afr Amer 89 mL/min (>60); Globulin 4.1 g/dL (2.2-4.2); Glucose 101 mg/dL (74-106); High Density Lipoprotein 52 mg/dL; Potassium 4.5 mmol/L (3.5-5.1); Protein, Total 7.9 g/dL (6.4-8.2); Sodium Level 141 mmol/L (136-145); Triglycerides 192 mg/dL; Very Low Density Lipoprotein 38 mg/dL (5-40)
== END | disposition home or self-care (01) ==
LOC: BIMLAB 10:41
PROVIDERS: PCP Family Medicine; Referring Provider Family Medicine; Visit Provider Family Medicine
DX: E78.5 Hyperlipidemia, unspecified (principal); K21.9 Gastro-esophageal reflux disease without esophagitis; M54.9 Dorsalgia, unspecified; K76.0 Fatty (change of) liver, not elsewhere classified
CPT/HCPCS: 36415; 80053; 80061

== ENCOUNTER → 2022-05-05 | Outpatient (CLI) | payer MEDICARE, SELFPAY ==
[2022-05-05 11:28] LABS: Erythrocyte Sedimentation Rate 7 mm/hr (0-30)
[2022-05-05 11:42] LABS: CRP < 2.90 mg/L (0.0-3.0); Uric Acid 4.2 mg/dL (2.6-6.0)
== END | disposition home or self-care (01) ==
LOC: LAB 10:34
PROVIDERS: PCP Family Medicine; Referring Provider Internal Medicine Gastroenterology; Visit Provider Internal Medicine Gastroenterology
DX: M19.90 Unspecified osteoarthritis, unspecified site (principal); K76.0 Fatty (change of) liver, not elsewhere classified; K63.89 Other specified diseases of intestine
CPT/HCPCS: 36415; 84550; 85652; 86140

== ENCOUNTER → 2022-05-16 | Outpatient (CLI) | payer MEDICARE, SELFPAY ==
[2022-05-16 16:43] LABS: Erythrocyte Sedimentation Rate 9 mm/hr (0-30)
[2022-05-16 17:05] LABS: CRP < 2.90 mg/L (0.0-3.0); Rheumatoid Factor < 10.0 IU/mL (<15)
== END | disposition home or self-care (01) ==
LOC: BIMLAB 15:18
PROVIDERS: PCP Family Medicine; Referring Provider Nurse Practitioner Family; Visit Provider Nurse Practitioner Family
DX: M25.50 Pain in unspecified joint (principal)
CPT/HCPCS: 36415; 85652; 86140; 86431

== ENCOUNTER → 2022-09-12 | Outpatient (CLI) | payer MEDICARE, SELFPAY ==
[2022-09-12 15:42] LABS: T4 Free Direct 0.67 ng/dL (0.76-1.46); Thyroid Stim Hormone (TSH) 1.03 uIU/mL (0.358-3.74)
== END | disposition home or self-care (01) ==
LOC: BIMLAB 13:44
PROVIDERS: PCP Family Medicine; Referring Provider Family Medicine; Visit Provider Family Medicine
DX: E03.9 Hypothyroidism, unspecified (principal)
CPT/HCPCS: 36415; 84439; 84443

== ENCOUNTER 2022-11-07 14:17 | Day surgery (SDC) | payer MEDICARE, SELFPAY ==
[2022-11-07 14:42] VITALS: BP 173/96; PULSE 75; RESP 16; TEMP 37.1; O2SAT 100; BMI 48.6
[2022-11-07] MEDS: Lactated Ringers 1,000 ML 15 ML IV (14:45)
--- NOTE | 2022-11-07 15:30 | EGD_PTH ---
PATIENT: LIAN DAMON LOC: EN U#:[id number] AGE/SX: 62/F ROOM: RE11/07/[address]: Dr. Jaylon Medina DO : 1960 BED: DIS: 11/07/2022 SPEC #: [id number] RECD: 11/07/22 18:52 STATUS: FELICIA LEONARDO #: [id number] GABE: 11/07/22 15:[address]: Jaylon Medina DEPT: SURGICAL PATHOLOGY RECD BY: Judy Darling ENTERED: 11/08/22 07:39 SP TYPE: EGD BIOPSY VIVIANA DR: Dr. Mehran Wilson DO Tissues: Esophagus, NOS Procedures: Special Stain Group II Surgery Specimen Level IV Alcian Blue/PAS (control) HEADER OPERATION: EGD with biopsy ([facility]) PRE-OP DIAGNOSIS: Gonzalez?s esophagus, GERD TISSUE SUBMITTED: Distal esophagus biopsy MICROSCOPIC DIAGNOSIS Distal esophagus, biopsy: Fragments of gastroesophageal mucosa with moderate chronic inflammation. Intestinal metaplasia (goblet cell metaplasia) not identified. See comment. ANJANA:remi 11/09/2022 COMMENT The specimen predominantly consists of gastric mucosa. Alcian blue/PAS stain with matched control is used in the evaluation of the specimen. MICROSCOPIC DESCRIPTION Slides are reviewed. GROSS DESCRIPTION Received in fixative is one container labeled with the patient's name and designated distal esophagus. The specimen consists of multiple irregular fragments of light acosta soft tissue that in aggregate measure 1.0 x 0.5 x 0.1 cm. The specimen is totally submitted in one cassette. / ANJANA:remi 11/08/2022 TC:3 CPT: 92171, 11799
--- NOTE | 2022-11-07 16:56 | PCM.HP.BLA ---
History and Physical Date of Admission: 11/07/22 ?62 F who presents to the office today for Follow up visit. Carleen established with this clinic 03.29.21 for Gonzalez?s esophagus surveillance and history of polyps. 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 ?US abd 08.17.21 finding liver measurement 20cm with fatty infiltration. Mild diffuse homogeneous hyperechogenicity of the pancreatic parenchyma with partial obscuration of pancreatic tail. Mild distention of gallbladder. ?Liver elastography 08.17.21 stiffness measures 7.8 F2/3. Start Ursodiol and Vit E ?EGD and colonoscopy performed 04.12.21. EGD findings include suspicion of Gonzalez?s esophagus and atrophic gastritis. Colonoscopy findings include removal of one small polyp at hepatic flexure (fragments of tubular adenoma) and two non-bleeding polyps in the colon. Biochemical workup 09.20.21 HIV screen, anti-smooth musc, anti-mitochondrial, JAN comp, copper, kavita, cmp, esr, cbc, ceruloplasmin, ldh without abnormality. Elevated: P-ANCA H1:20 Xray hip pelvis 11.16.21 found moderate osteophytes formation in acetabular lip bilaterally; no evidence of fracture of joint space narrowing. Biochemical workup CRP, uric acid, ESR without pertinent abnormality. Weight: 08.31.21 286 lbs 11.16.21 287 lbs Plan last visit 05.05.22: GERD ? doing well with PPI IBS ? continue current recommendations Arthritis ? Fatty liver ? SIBO - Fatty liver ? unable to start exercise r/t spinal stenosis and worsening left hip pain; recommend Xray and short course of tramadol and refer to PCP/PT/orthopedics. Gonzalez?s esophagus ? does not wish to pursue surgical therapy. Continues to have reflux r/t hiatal hernia and requires to sleep upright. Feels she is doing well overall. She has been having some intermittent hard BM which can excoriate hemorrhoids and cause bleeding. 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 ROS Const Constitutional: No body ache, chills, excessive sweating, fatigue, fever(s), frequent falls, headache(s), snoring, weakness, weight change, sleep problems or change in appetite Eyes Eyes: No blurry vision, change in vision, eye pain or Light sensitivity ENT ENT: No abnormal hearing, ear or mastoid pain, tinnitus, nasal congestion, headache(s), neck pain or sore throat Resp Respiratory: No cough, shortness of breath, snoring or wheezing Cardio Cardiology: No chest pain at rest, chest pain with exertion, excessive sweating, shortness of breath, dyspnea on exertion, lightheadedness, orthopnea or palpitations Gastro GI: No abdominal pain, change in bowel habits, constipation, cramping, diarrhea, nausea/dyspepsia or vomiting Genitourinary-Female: No burning urination, painful urination, urinary incontinence, urinary frequency or abnormal vaginal bleeding Musc Musculoskeletal: Positive for other (left thumb pain ); No abnormal gait, joint pain, back pain, limited range of motion, neck pain, numbness or tingling Skin Skin: No dry skin, redness, lesions, itchy eyes, rash or wounds Neuro Neurology: No abnormal gait, abnormal hearing, abnormal speech, dizziness, weakness, frequent falls, headache(s), memory loss, numbness or tingling Psych Psychiatric: No anxiety, No change in appetite, No depression, No memory loss and No Thoughts of harming yourself/Others Endo Endocrine: No cold intolerance, excessive sweating, fatigue, flushing, heat intolerance, increased thirst/drinking, increased hunger or weight change Aller/Imm Allergy/Immunologic: No itchy eyes, seasonal allergy symptoms, hives or wheezing Luis A/Lymp Hematologic/Lymphatic: No easy bleeding, easy bruising or enlarged lymph nodes Exam Const General: cooperative, comfortable and disheveled Nutritional Appearance: well nourished and obese [facility] Head: normal to inspection Ears: hearing grossly normal bilaterally Nose: external nose normal Face and sinus: normal facial exam Mouth: oral mucosae normal Throat: posterior oropharynx normal Eyes General: appearance normal, both eyes and all related structures Neck Neck: normal visual inspection Neck mass: No Thyroid: thyroid normal Resp Effort & Inspection: normal respiratory effort Auscultation: Bilateral: Clear to Auscultation Cardio Palpation: normal PMI Rate: regular rate Rhythm: regular rhythm GI Inspection: normal to inspection Auscultation: normal bowel sounds Musc Musculoskeletal: Yes joint tenderness (Tenderness noted over the first DIP joint, full range of motion left side) Other: Multiple joint tenderness noted on the bilateral hands Skin General: no rashes or lesions noted Lesions: no lesions Rashes: no rashes Hair: normal Neuro General: patient alert Extrem General: normal to inspection Psych Affect: normal affect Judgment: fair Quality Reporting Tobacco Screening ([facility] 138) Smoking Status: Never smoker Assessment and Plan Assessment and Plan (1) Fatty liver: ?Status:?Chronic (2) Barretts esophagus: ?Status:?Chronic ?Plan: It has been a year and a half since we reviewed her upper GI tract in particular her distal esophagus for any progression of Gonzalez's esophagus.? She is on 20 mg of ordered for counter omeprazole therapy we will schedule her for an upper endoscopy for evaluation of her upper GI tract.? She was explained alternatives, risk, benefits including not withstanding bleeding, infection, sepsis, perforation, need for emergent surgery .? She have an ASA of 1. (3) Irritable bowel syndrome (IBS): ?Status:?Chronic ?Plan: We diet and treatment for his low back total girl so she is not having any bloating, cramping, nausea or diarrhea at this time.? We will continue the current recommendations and she will follow-up in 3 months. (4) GERD (gastroesophageal reflux disease): ?Status:?Chronic ?Qualifiers: ?Esophagitis presence:?without esophagitis? Qualified Code(s):?K21.9 - Gastro-esophageal reflux disease without esophagitis ?Plan: Her gastroesophageal reflux disease is very well controlled on PPI therapy.? She is not having breakthrough symptoms.? Is not having nausea.? She denies chest pain shortness of breath. (5) Arthritis: ?Status:?Acute (6) Small intestinal bacterial overgrowth: ?Status:?Acute I have examined the patient and the H&P has been reviewed. There are no clinical changes since date of exam.
[2022-11-07 17:15] VITALS: BP 168/88; BP 173/96; PULSE 79; RESP 16; TEMP 36.7; O2SAT 99
--- NOTE | 2022-11-07 17:16 | OP.EGD_ITS ---
Patient Name: Carleen Garcia Procedure Date: 11/07/2022 4:53 PM Date of : 1960 Age: 62 Procedure: Upper GI endoscopy Indications: Follow-up of Gonzalez's esophagus Providers: Jaylon Medina DO Medicines: Monitored Anesthesia Care Patient Profile: This is a 62 year old female. Refer to note in patient chart for documentation of history and physical. Patient has symptoms of chronic heartburn. Complications: No immediate complications. Procedure: Pre-Anesthesia Assessment: - Prior to the procedure, a History and Physical was performed, and patient medications and allergies were reviewed. The patient is competent. The risks and benefits of the procedure and the sedation options and risks were discussed with the patient. All questions were answered and informed consent was obtained. Patient identification and proposed procedure were verified by the physician. Mental Status Examination: normal. Respiratory Examination: clear to auscultation. Prophylactic Antibiotics: The patient does not require prophylactic antibiotics. Prior Anticoagulants: The patient has taken no previous anticoagulant or antiplatelet agents. ASA Grade Assessment: II - A patient with mild systemic disease. After reviewing the risks and benefits, the patient was deemed in satisfactory condition to undergo the procedure. The anesthesia plan was to use monitored anesthesia care (MAC). Immediately prior to administration of medications, the patient was re-assessed for adequacy to receive sedatives. The heart rate, respiratory rate, oxygen saturations, blood pressure, adequacy of pulmonary ventilation, and response to care were monitored throughout the procedure. The physical status of the patient was re-assessed after the procedure. After obtaining informed consent, the endoscope was passed under direct vision. Throughout the procedure, the patient's blood pressure, pulse, and oxygen saturations were monitored continuously. The Endoscope was introduced through the mouth, and advanced to the second part of duodenum. The upper GI endoscopy was accomplished without difficulty. The patient tolerated the procedure well. Scope In: 5:07:07 PM Scope Out: 5:10:22 PM Total Procedure Duration Time 0 hours 3 minutes 15 seconds Findings: There were esophageal mucosal changes secondary to established short-segment Gonzalez's disease present in the lower third of the esophagus. The maximum longitudinal extent of these mucosal changes was 1 cm in length. Mucosa was biopsied with a cold forceps for histology in a targeted manner at intervals of 1 cm in the lower third of the esophagus. One specimen bottle was sent to pathology. Verification of patient identification for the specimen was done. Estimated blood loss was minimal. The entire examined stomach was normal. The second portion of the duodenum was normal. Impression: - Esophageal mucosal changes secondary to established short-segment Gonzalez's disease. Biopsied. - Normal stomach. - Normal second portion of the duodenum. Recommendation: - Discharge patient to home. - Resume previous diet. - Continue present medications. - Await pathology results. - Repeat upper endoscopy in 1 year for surveillance. Procedure Code(s): --- Professional --- 90671, Esophagogastroduodenoscopy, flexible, transoral; with biopsy, single or multiple CPT copyright 2017 [employer]. All rights reserved. The codes documented in this report are preliminary and upon studio control operator review may be revised to meet current compliance requirements. Jaylon Medina DO 11/07/2022 5:16:11 PM This report has been signed electronically. Number of Addenda: 0 Note Initiated On: 11/07/2022 4:53 PM
--- NOTE | 2022-11-07 17:17 | OP.CCLET_ITS ---
11/07/2022 Mehran Wilson Re : Upper GI endoscopy procedure for Carleen Garcia Dear Dr. Wilson This procedure was performed on Monday, November 07, 2022. My impressions and recommendations are as follows: Impressions : - Esophageal mucosal changes secondary to established short-segment Gonzalez's disease. Biopsied. - Normal stomach. - Normal second portion of the duodenum. Recommendations : - Discharge patient to home. - Resume previous diet. - Continue present medications. - Await pathology results. - Repeat upper endoscopy in 1 year for surveillance. My findings are described in the full procedure note, which is enclosed. If I can be of further assistance, please feel free to contact me at . Sincerely, Jaylon Medina, 11/07/2022 5:16:11 PM This report has been signed electronically.
[2022-11-07 17:20] VITALS: BP 142/78; BP 173/96; PULSE 82; RESP 16; O2SAT 98
[2022-11-07 17:25] VITALS: BP 163/92; BP 173/96; PULSE 82; RESP 18; O2SAT 98
[2022-11-07 17:30] VITALS: BP 147/87; BP 173/96; PULSE 82; RESP 18; TEMP 36.7; O2SAT 98
[2022-11-07 17:54] VITALS: BP 173/96
== END 2022-11-07 17:57 | disposition home or self-care (01) ==
LOC: EN 14:21 → AC 14:23
PROVIDERS: PCP Family Medicine; Referring Provider Family Medicine; Visit Provider Internal Medicine Gastroenterology
PROC: 0DJ08ZZ Inspection of Upper Intestinal Tract, Via Natural or Artificial Opening Endoscopic (ICD-10-PCS; CPT 43235; principal; 2022-11-07 15:25)
DX: K22.70 Barrett's esophagus without dysplasia (principal); K58.9 Irritable bowel syndrome, unspecified; K76.0 Fatty (change of) liver, not elsewhere classified; Z86.010 Personal history of colon polyps; K21.9 Gastro-esophageal reflux disease without esophagitis
CPT/HCPCS: 43239; 88305; 88313; J7120

== ENCOUNTER → 2023-09-03 | Outpatient (CLI) | payer MEDICARE, SELFPAY ==
--- NOTE | 2023-09-03 09:08 | US_ITS ---
STUDY: ABDOMINAL ULTRASOUND - RIGHT UPPER QUADRANT; ELASTOGRAPHY REASON FOR VISIT: Female, 63 years old. NAFLD. TECHNIQUE: Ultrasound evaluation of the right upper quadrant was performed with real-time and static giordano-scale imaging. Point quantification shear wave elastography was performed ([facility]). TECHNICAL QUALITY: Adequate. COMPARISON: Comparison is made with prior study dated August 17, 2021. FINDINGS: Liver: The liver is enlarged and measures 19.2 cm. There is normal echogenicity of the liver. The bile ducts are within normal limits. There is hepatic color flow. The direction of portal flow is hepatopetal. There is no demonstrated mass lesion. Median liver stiffness measured 8.1 kPa. Gallbladder: Normal distended gallbladder. The gallbladder wall measures 1.9 mm. There is a negative sonographic Fields''s sign. There is no pericholecystic fluid. There are no gallstones. Common Bile Duct (C.B.D.): The common bile duct measures 3.8 mm. Pancreas: There is normal echogenicity of the visualized pancreas. There is no demonstrated pancreatic mass or cyst. Right Kidney: Normal size of the right kidney. The right kidney measures 12.3 cm x 5.4 cm x 4.5 cm. Normal renal cortex. The right cortex measures 1.0 cm. There is no demonstrated renal mass or cyst. There is no right hydronephrosis. US/ABD Limited w/ Elastography IMPRESSION: 1. Liver stiffness measures 8.1 kPa compatible with F2-F3 (Mild to moderate liver fibrosis) Metavir score. Electronically Signed: Tariq Arnold MD at 11:01 EST ,
--- OUTSIDE RECORDS SUMMARY | 2023-09-03 09:27 | XMS RPT_ITS | CCD ---
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 Role Phone Uday Rayo Unavailable Unavailable Uday Rayo Unavailable Unavailable Lu Perez MD Unavailable [phone] TRENTON CONTEH DO Primary Care Physician Robbie PT, Sarai Unavailable Unavailable BROOKE SANCHEZ MD Attending Unavailable TRENTON CONTEH DO Primary Care Unavailable MELQUIADES FOUNTAIN Attending Unavailable TRENTON CONTEH DO Primary Care Unavailable TRENTON CONTEH DO Attending Unavailable TRENTON CONTEH DO Primary Care Unavailable Allergies Allergy Classification Reported Allergen(s) Allergy Type Date of Onset Reaction(s) Facility (1 source) Codeine Drug Allergy 08-22-19 19 blackouts [facility] Work Phone: (1 source) Cortisone Drug Allergy 08-22-19 unsure. did well with depo-medrol during an epidural steroid injection 10/2018 [facility] Work Phone: (1 source) PLANT POLLENS; Translations: [PLANT POLLENS] allergy to substance 08-22-19 [facility] Work Phone: (3 sources) Codeine; Translations: [codeine] Drug Allergy Visual hallucinations [facility] (3 sources) Cortisone; Translations: [cortisone] Drug Allergy Unknown [facility] Medications Current Medications Medication Drug Class(es) Dates Sig (Normalized) Sig (Original) aspirin 325 mg oral tablet (3 sources) Platelet Aggregation Inhibitor, Nonsteroidal Anti-inflammatory Drug Start: 10-12-2016 aspirin 325 mg oral tablet Dose : 325 mg = 1 tab(s), Oral, qDay Start Date: 10/12/16 Status: Ordered ibuprofen 600 mg oral tablet (3 sources) Nonsteroidal Anti-inflammatory Drug Start: 10-25-2018 take 1 tablet by mouth three times daily at mealtime ibuprofen 600 mg oral tablet TAKE 1 TABLET BY MOUTH THREE TIMES A DAY WITH FOOD Start Date: 10/25/18 Status: Ordered levothyroxine sodium 0.2 mg oral tablet (4 sources) l-Thyroxine Start: 09-22-2022 levothyroxine 200 mcg (0.2 mg) oral tablet Dose : 200 mcg = 1 tab(s), Oral, qDay, # 30 tab(s), 0 Refill(s) Start Date: 09/22/22 Status: Ordered Completed/Discontinued Medications Medication Drug Class(es) Dates Sig (Normalized) Sig (Original) fluticasone propionate 0.05 mg/actuat metered dose nasal spray (4 sources) Corticosteroid Start: 01-22-2019 take 1 spray(s) nasal route once daily as needed FLUTICASONE PROPIONATE 50 MCG/ACT SUSP one spray into each nostril daily as needed FLUTICASONE PROPIONATE [id number] Lu Perez MD Problems Active Problems Problem Classification Problem Date Documented Date Episodic/Chronic Mood disorders (3 sources) Depressive disorder Onset: 01-08-2013 01-08-2013 Chronic Nonspecific chest pain (1 source) Chest pain; Translations: [Chest pain, unspecified] Onset: 09-22-2022 Episodic Other acquired deformities (1 source) Lumbar spondylolisthesis; Translations: [Spondylolisthesis, lumbar region] Onset: 10-23-2018 10-23-2018 Schizophrenia and other psychotic disorders (3 sources) Schizophrenia 11-09-2016 Chronic Spondylosis; intervertebral disc disorders; other back problems (1 source) Stenosis of lumbar vertebral foramen; Translations: [Other biomechanical lesions of lumbar region] Onset: 10-23-2018 10-23-2018 Past or Other Problems Problem Classification Problem Date Documented Da te Episodic/Chronic Residual codes; unclassified (3 sources) Hallucinations Onset: 01-09-2012 01-08-2013 Episodic Results Test Name Value Interpretation Reference Range Facil ity Vital Signs Date Time Vital Sign Value Performing Clinician Facility 09-22-2022 17:13-0400 Diastolic Blood Pressure Non-Invasive 94 1 BROOKE SANCHEZ MD [facility] 09-22-2022 17:13-0400 Heart rate 76 /min BROOKE SANCHEZ MD [facility] 09-22-2022 17:13-0400 Respiratory rate 18 /min BROOKE SANCHEZ MD [facility] 09-22-2022 17:13-0400 Systolic Blood Pressure Non-Invasive 115 1 BROOKE SANCHEZ MD [facility] 09-22-2022 15:49-0400 Diastolic Blood Pressure Non-Invasive 63 1 BROOKE SANCHEZ MD [facility] 09-22-2022 15:49-0400 Heart rate 67 /min BROOKE SANCHEZ MD [facility] 09-22-2022 15:49-0400 Respiratory rate 18 /min BROOKE SANCHEZ MD [facility] 09-22-2022 15:49-0400 Systolic Blood Pressure Non-Invasive 143 1 BROOKE SANCHEZ MD [facility] 09-22-2022 14:30-0400 Diastolic Blood Pressure Non-Invasive 77 1 BROOKE SANCHEZ MD [facility] 09-22-2022 14:30-0400 Heart rate 68 /min BROOKE SANCHEZ MD [facility] 09-22-2022 14:30-0400 Respiratory rate 18 /min BROOKE SANCHEZ MD [facility] 09-22-2022 14:30-0400 Systolic Blood Pressure Non-Invasive 172 1 BROOKE SANCHEZ MD [facility] 09-22-2022 14:15-0400 Body temperature 98.06 [degF] BROOKE SANCHEZ MD [facility] 09-22-2022 14:15-0400 Body weight 133.9 kg BROOKE SANCHEZ MD [facility] NEGATED: Highlighted [id number] 09:57-0400 BMI (Body Mass Index) 45.76 kg/m2 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 [place] [facility] Work Phone: NEGATED: Highlighted [id number] 09:57-0400 Body weight 124.29 kg 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 [place] [facility] Work Phone: NEGATED: Highlighted [id number] 09:57-0400 Body weight 125 kg 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 [facility] Work Phone: NEGATED: Highlighted [id number] 09:57-0400 BP Diastolic 64 mm[Hg] 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 [place] [facility] Work Phone: NEGATED: Highlighted [id number] 09:57-0400 BP Systolic 108 mm[Hg] 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 [facility] Work Phone: NEGATED: Highlighted [id number] 09:57-0400 Height 165.1 cm 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 [facility] Work Phone: NEGATED: Highlighted [id number] 09:57-0400 Height 165 cm 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 Work Phone: Encounters Encounter Date Encounter Type Care Provider Facility Start: 09-22-2022 End: 09-22-2022 Emergency department patient visit BROOKE SANCHEZ MD Facility:B Start: 09-22-2022 End: 09-22-2022 Emergency department patient visit BROOKE SANCHEZ MD [facility] Start: 05-16-2022 End: 05-17-2022 ambulatory PRODUCTION HELPER-C TORREY FOUNTAIN Facility:B Start: 05-16-2022 End: 05-16-2022 Patient encounter procedure TORREY FOUNTAIN [facility] Start: 03-22-2022 End: 03-23-2022 ambulatory TRENTON CONTEH DO Facility:B Start: 03-22-2022 End: 03-22-2022 Patient encounter procedure TRENTON R BROWN DO [facility] Start: 01-22-2019 End: 01-22-2019 Patient encounter procedure Lu Perez MD Work Phone: [facility] Work Phone: Start: 04-17-2017 Ambulatory Uday Perri [facility] Procedures Date Procedure Procedure Detail Performing Clinician Start: 01-22-2019 End: 01-22-2019 Blood pressure within normal parameters - no follow-up required Lu Perez MD Work Phone: Start: 01-22-2019 End: 01-22-2019 BMI documented as above normal parameters - follow-up documented Lu Perez MD Work Phone: Start: 01-22-2019 End: 01-22-2019 Documentation of current medications Lu Perez MD Work Phone: Start: 01-22-2019 End: 01-22-2019 Pain assessment documented as positive - no follow-up/reason not given Lu Perez MD Work Phone: Start: 01-22-2019 End: 01-22-2019 Tobacco non-user Lu Perez MD Work Phone: Start: 11-09-2016 Cardiac catheterization TRENTON CONTEH DO Catheterization of l eft heart TRENTON CONTEH DO Plan of Treatment Date Care Activity Detail Author Start: 01-22-2019 End: 01-22-2019 Appointment Appointment [facility] Work Phone: Start: 01-22-2019 End: 01-22-2019 Njx anes&/strd w/img tfrml edrl lmbr/sac 1 lvl Transforaminal epidural injection [facility] Work Phone: Immunizations Immunization Date Immunization Notes Care Provider Fa richi 08-05-2019 tetanus toxoid, redu julia diphtheria toxoid, and acellular pertussis vaccine, adsorbed TRENTON CONTEH DO [facility] 10-25-2018 tetanus toxoid, redu julia diphtheria toxoid, and acellular pertussis vaccine, adsorbed; Translations: [Boostrix (Tdap)] TRENTON CONTEH DO [facility] 03-05-2016 tetanus toxoid, redu julia diphtheria toxoid, and acellular pertussis vaccine, adsorbed TRENTON CONTEH DO [facility] Payers Date Payer Category Payer Private Health Insurance [id number] 1960 Unknown [id number] 1960 Unknown [id number] 1960 Unknown [id number] Unknown Social History Date Type Detail Facility Start: 01-22-2019 End: 01-22-2019 Assertion Unknown if ever smoked [facility] Work Phone: Start: 09-24-2018 Tobacco smoking status Never s moked tobacco (finding) [facility] Sex Assigned At Female [facility] Functional Status Date Assessment Result Facility 09-22-2022 Functional Status Independent [facility] Yunior anne [facility] 09-22-2022 Functional Status Standard Safet y ID band on, Allergy Band on, Call device within reach, Bed in low position, Wheels locked [facility] Mental Status Date Assessment Result Facility 09-22-2022 Mental Status Orientation Oriented x 4 [facility] 09-22-2022 Mental Status [facility] Discharge instructions 09-22-2022 Note Date & Type Note Facility 09-22-2022 Hospital Discharg e instructions Patient Education 09/22/2022 17:04:31 Chest Pain, Uncertain Cause Uncertain Causes of Chest Pain Chest pain can happen for a number of reasons. Sometimes the cause can't be determined. If your condition does not seem serious, and your pain does not appear to be coming from your heart, your healthcare provider may recommend watching it closely. Sometimes the signs of a serious problem take more time to appear. Many problems not related to your heart can cause chest pain. These include: Musculoskeletal. Costochondritis is an inflammation of the tissues around the ribs that can occur from trauma or overuse injuries, or a strain of the muscles of the chest wall Respiratory. Pneumonia, collapsed lung (pneumothorax), or inflammation of the lining of the chest and lungs (pleurisy) Gastrointestinal. Esophageal reflux, heartburn, ulcers, or gallbladder disease Anxiety and panic disorders Nerve compression and inflammation Rare miscellaneous problems such as aortic aneurysm (a swelling of the large artery coming out of the heart) or pulmonary embolism (a blood clot in the lungs) Home care After your visit, follow these recommendations: Rest today and avoid strenuous activity. Take any prescribed medicine as directed. Be aware of any recurrent chest pain and notice any changes Follow-up care Follow up with your healthcare provider if you do not start to feel better within 24 hours, or as advised. Call 911 Call 911 if any of these occur: A change in the type of pain: if it feels different, becomes more severe, lasts longer, or begins to spread into your shoulder, arm, neck, jaw or back Shortness of breath or increased pain with breathing Weakness, dizziness, or fainting Rapid heart beat Crushing sensation in your chest When to seek medical advice Call your healthcare provider right away if any of the following occur: Cough with dark colored sputum (phlegm) or blood Fever of 100.4 F (38 C) or higher, or as directed by your healthcare provider Swelling, pain or redness in one leg [id number] [employer]. [address] [place] [address]. All rights reserved. This information is not intended as a substitute for professional medical care. Always follow your healthcare professional's instructions. Follow Up Care 09/22/2022 14:14:43 With:TRENTON CONTEH DO Address: [facility] [address] [address] [phone] When:2-4 days With:Go to emergency room if symptoms worsen Address:Unknown When:2-4 days [facility] Clinical Note 09-22-2022 Note Date & Type Note Facility 09-22-2022 Note Discharge Instructions Thank you for allowing [facility] to assist you with your healthcare needs. The following is important discharge information regarding your hospital visit. Diagnosis from Today's Visit Chest pain Chest pain What to Do Next Instructions from Your Care Team No qualifying data available. Post Acute Orders No qualifying data available. You Need to Schedule the Following Appointments Follow Up with TRENTON CONTEH DO When Within 2-4 days Where: [facility] [address] [place] [address] [place] [address] [phone] Follow Up with Go to emergency room if symptoms worsen When Within 2-4 days Allergies codeine (Visual hallucinations) cortisone (Unknown) Medications Please ask your primary doctor or pharmacist before taking any other medication not listed, including over the counter drugs, herbal medications, vitamins and or supplements as they may interact with your home medications. What How Much When Instructions Last Dose Unchanged aspirin (aspirin 325 mg oral tablet) 1 tab(s) by mouth Once a day Unchanged fluticasone nasal (fluticasone 50 mcg/ inh NASAL spray) 1 spray(s) each nostril Once a day (in the morning) Unchanged gabapentin (gabapentin 600 mg oral tablet) 1 tab(s) by mouth Three (3) times a day Unchanged ibuprofen (ibuprofen 600 mg oral tablet) TAKE 1 TABLET BY MOUTH THREE TIMES A DAY WITH FOOD Unchanged levothyroxine (levothyroxine 200 mcg (0.2 mg) oral tablet) 1 tab(s) by mouth Once a day Unchanged meloxicam (meloxicam 7.5 mg oral tablet) 1 tab(s) by mouth Once a day Unchanged multivitamin (Multivitamin) 1 tab(s) by mouth Every day Unchanged OLANZapine (OLANZapine 10 mg oral tablet) 1 tab(s) by mouth Every day Unchanged omeprazole (NF) (omeprazole 20 mg oral delayed release capsule (NF)) 1 cap by mouth Once a day Unchanged oxybutynin (oxybutynin 10 mg/ 24 hr oral tablet, extended release) 1 tab(s) by mouth Every day Unchanged propranolol (propranolol 20 mg oral tablet) 1 tab(s) by mouth Every day Unchanged QUEtiapine (QUEtiapine 400 mg oral tablet) 1 tab(s) by mouth Once a day Unchanged sertraline (sertraline 100 mg oral tablet) 2 tab(s) by mouth Every day Unchanged simvastatin (simvastatin 10 mg oral tablet) 1 tab(s) by mouth Daily at bedtime Unchanged SUMAtriptan 25 Milligram by mouth Once as needed for as needed for migraine headache Unchanged thyroid desiccated (Adona Thyroid 30 mg oral tablet) 1 tab(s) by mouth Once a day before a meal Unchanged tiZANidine (tiZANidine 2 mg oral tablet) 1 tab(s) by mouth Once a day (in the evening) as needed for Muscle Aches Please take this list to your next doctor s visit. Bring all medications you take, including over the counter medications, herbals and other supplements with you to your doctor s visit. Patients and families are reminded to discard old lists and to update any records with all medication providers or retail pharmacies. Education Materials Uncertain Causes of Chest Pain Chest pain can happen for a number of reasons. Sometimes the cause can't be determined. If your condition does not seem serious, and your pain does not appear to be coming from your heart, your healthcare provider may recommend watching it closely. Sometimes the signs of a serious problem take more time to appear. Many problems not related to your heart can cause chest pain. These include: Musculoskeletal. Costochondritis is an inflammation of the tissues around the ribs that can occur from trauma or overuse injuries, or a strain of the muscles of the chest wall Respiratory. Pneumonia, collapsed lung (pneumothorax), or inflammation of the lining of the chest and lungs (pleurisy) Gastrointestinal. Esophageal reflux, heartburn, ulcers, or gallbladder disease Anxiety and panic disorders Nerve compression and inflammation Rare miscellaneous problems such as aortic aneurysm (a swelling of the large artery coming out of the heart) or pulmonary embolism (a blood clot in the lungs) Home care After your visit, follow these recommendations: Rest today and avoid strenuous activity. Take any prescribed medicine as directed. Be aware of any recurrent chest pain and notice any changes Follow-up care Follow up with your healthcare provider if you do not start to feel better within 24 hours, or as advised. Call 911 Call 911 if any of these occur: A change in the type of pain: if it feels different, becomes more severe, lasts longer, or begins to spread into your shoulder, arm, neck, jaw or back Shortness of breath or increased pain with breathing Weakness, dizziness, or fainting Rapid heart beat Crushing sensation in your chest When to seek medical advice Call your healthcare provider right away if any of the following occur: Cough with dark colored sputum (phlegm) or blood Fever of 100.4 F (38 C) or higher, or as directed by your healthcare provider Swelling, pain or redness in one leg [id number] [employer]. [address] [place] [address]. All rights reserved. This information is not intended as a substitute for professional medical care. Always follow your healthcare professional's instructions. Additional Information VACCINATE! IT SAVES LIVES! Members of the community who have not yet received the COVID-19 vaccine and would like to receive it can visit one of [facility] vaccine clinics. There are many vaccine clinic locations within the [facility]. For locations and available times, please visit www.gettheshot.coronavirus.[place].gov/. It is important to note that some COVID mobile vaccine clinics are held outdoors and may be canceled in rainy or stormy conditions. To learn more about pediatric vaccinations (ages 5-11), we invite you to visit the [facility] webpage. [email or web address].[email or web address].org/pages/2 877-Sxypg-Crmyboghvlg-Frequently-Asked -Questions.html To learn more about the COVID-19 vaccine, we invite you to visit the CDC website for a list of frequently asked questions. https://www.cdc.gov/coronavirus/2019-n cov/vaccines/faq.html [facility] [employer] Patient Portal Access Instructions: Stay connected with your healthcare team and access your personal medical information anytime with the [employer] Patient Portal. If you would like a full copy of your medical records please contact the [facility] Medical Records Department Sunday through Sunday between 8a.m. and 4:30p.m. Please follow the directions below to access the portal: 1.Access the email account you provided upon registration to the [facility].2.Look for an invitation email from [facility].3.Open the email and access the invitation link: Accept Invitation to [facility]4.Fill in the required deluna to create your account. Sign into [email or web address] with your username and password that you created in the above steps to stay up to date. You can then view a summary of results, a summary of your visits, and the ability to download your summaries to your computer or send the information securely to a physician. Remember that your healthcare information is confidential, so carefully consider who you will allow to register on the [employer] Patient Portal for access to your information. You can also access the [facility] Patient Portal on the [employer] nesha. Simply click on Health Records under Health Data and then click on the [employer] logo. HOW TO SAFELY DISPOSE OF PRESCRIPTION MEDICATIONS Please use one of the following methods to safely dispose of your unused medications. 1.Use a drug disposal kit: the drug disposal pouch allows you to safely discard your old and unused drugs. Ask your nurse to give you one when you are discharged.2.Visit a local take-back location: Many local pharmacies and police departments have programs that collect old and unwanted prescription drugs. Call your local pharmacy or go to http://bit.[employer]/3V4Wq2c to find one close to you.3.Make use of household items: Use cat litter or old coffee grounds to dispose medications if other options are not available. Mix your drugs with these household products, seal them in an airtight container and throw it into the garbage. Call [facility]: [phone] to be sure your drugs can be disposed of in this way. Some medicines may require a different approach.4.Never flush your medications down the toilet. IF YOU HAVE BEEN PRESCRIBED AN OPIOIDS FOR PAIN If you have been prescribed an opioid (such as hydrocodone, oxycodone or morphine), it is critical to understand the possible side effects and risks of opioid pain medications. Even when taken as directed, opioids can have several side effects including: Tolerance, meaning you might need to take more of a medication for the same pain relief. Nausea, vomiting and/or constipation. Sleepiness, dizziness, dry mouth, confusion, depression or itching. Physical dependence, meaning you have withdrawal symptoms when a medication is stopped ? this can develop within a few days. KNOW YOUR RESPONSIBILITIES It is important to know exactly how much and how often to take the opioid pain medications you are prescribed. Never take opioids in higher amounts or more often than prescribed. Do not combine opioids with alcohol or other drugs that cause drowsiness, such as benzodiazepines, also known as benzos, including diazepam and alprazolam, muscle relaxants or sleep aids. Never sell or share prescription opioids. This is illegal. Store opioids in a secure place and out of reach of others (including children, family, friends and visitors). The last page(s) of this document has been signed and retained as a CHART COPY Signatures Patient Education Materials Chest Pain, Uncertain Cause Medication Leaflets My discharge plan and instructions have been reviewed and explained to me and IMARISOL JANET L understand my current condition and have read and understand these discharge instructions. I have received a written copy of the plan/instructions. If I have questions, I am aware that I should contact my doctor. 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 Multiplanar reformatted images are provided for review. MIP images are provided for review. Automated exposure control, iterative reconstruction, and/or weight based adjustment of the mA/kV was utilized to reduce the radiation dose to as low as reasonably achievable. COMPARISON: Chest x-ray today HISTORY: ORDERING SYSTEM PROVIDED HISTORY: Reason for Exam: chest pain; suspect PE FINDINGS: [id number]-dm-[id number] degenerative changes are noted in the spine. There is a small area of ground-glass density identified at the lateral segment of the right middle lobe. This is presumably infectious or inflammatory. No lobar consolidation is visible. At the posterior aspect of the left upper lobe, there is a 5 mm pulmonary nodule. No other significant nodule is visible. No pleural fluid seen. Mildly prominent right hilar lymph node 13 mm. This may be reactive or hyperplastic. No other adenopathy is visible. No pulmonary artery defect is present to suggest thromboembolism. No additional contributory abnormality seen. IMPRESSION: 1. No evidence for pulmonary embolism. 2. Minimal infiltrate at the lateral aspect of the right middle lobe. This is presumably minimal infection/inflammation. 3. Pulmonary nodule. See formal recommendations below. RECOMMENDATIONS: 5 mm left solid pulmonary nodule within the upper lobe. If patient is low risk for malignancy, no routine follow-up imaging is recommended; if patient is high risk for malignancy, a non-contrast Chest CT at 12 months is optional. If performed and the nodule is stable at 12 months, no further follow-up is recommended. These guidelines do not apply to immunocompromised patients and patients with cancer. Follow up in patients with significant comorbidities as clinically warranted. For lung cancer screening, adhere to Lung-RADS guidelines. Reference: Radiology. 2017; 284(1):228-43. Interpreted by: Gurpreet Cruz MD Preliminary Report By: Gurpreet Cruz MD Electronically signed By Gurpreet Cruz MD Dictated Date: 09/22/2022 4:08:23 PM Prelim Date: 09/22/2022 4:12:03 PM Sign Date: 09/22/2022 4:12:03 PM Ordering Provider: [facility] Clinical Note 09-22-2022 Note Date & Type Note Facility 09-22-2022 Note ORIGINAL EXAMINATION: CTA OF THE CHEST 09/22/2022 4:05 pm TECHNIQUE: CTA of the chest was performed after the administration of intravenous contrast. Multiplanar reformatted images are provided for review. MIP images are provided for review. Automated exposure control, iterative reconstruction, and/or weight based adjustment of the mA/kV was utilized to reduce the radiation dose to as low as reasonably achievable. COMPARISON: Chest x-ray today HISTORY: ORDERING SYSTEM PROVIDED HISTORY: Reason for Exam: chest pain; suspect PE FINDINGS: Asxx-hc-rrcyplpr degenerative changes are noted in the spine. There is a small area of ground-glass density identified at the lateral segment of the right middle lobe. This is presumably infectious or inflammatory. No lobar consolidation is visible. At the posterior aspect of the left upper lobe, there is a 5 mm pulmonary nodule. No other significant nodule is visible. No pleural fluid seen. Mildly prominent right hilar lymph node 13 mm. This may be reactive or hyperplastic. No other adenopathy is visible. No pulmonary artery defect is present to suggest thromboembolism. No additional contributory abnormality seen. IMPRESSION: 1. No evidence for pulmonary embolism. 2. Minimal infiltrate at the lateral aspect of the right middle lobe. This is presumably minimal infection/inflammation. 3. Pulmonary nodule. See formal recommendations below. RECOMMENDATIONS: 5 mm left solid pulmonary nodule within the upper lobe. If patient is low risk for malignancy, no routine follow-up imaging is recommended; if patient is high risk for malignancy, a non-contrast Chest CT at 12 months is optional. If performed and the nodule is stable at 12 months, no further follow-up is recommended. These guidelines do not apply to immunocompromised patients and patients with cancer. Follow up in patients with significant comorbidities as clinically warranted. For lung cancer screening, adhere to Lung-RADS guidelines. Reference: Radiology. 2017; 284(1):228-43. Interpreted by: Gurpreet Cruz MD Preliminary Report By: Gurpreet Cruz MD Electronically signed By Gurpreet Cruz MD Dictated Date: 09/22/2022 4:08:23 PM Prelim Date: 09/22/2022 4:12:03 PM Sign Date: 09/22/2022 4:12:03 PM Ordering Provider: [facility] Clinical Note 09-22-2022 Note Date & Type Note Facility 09-22-2022 Note ORIGINAL EXAMINATION: ONE XRAY VIEW OF THE CHEST 09/22/2022 2:46 pm COMPARISON: 10/12/2016. HISTORY: ORDERING SYSTEM PROVIDED HISTORY: Reason for Exam: chest pain FINDINGS: Suboptimal exam secondary to patient habitus and portable technique. Within these limitations: Normal heart size for projection. Low lung volumes. No large pleural effusion or appreciable pneumothorax. No congestion. No consolidation. Degenerative changes of the spine and shoulder suspected. IMPRESSION: 1. Hypoventilation. Otherwise, no evidence of acute cardiopulmonary process. Interpreted by: Samir Jay DO Preliminary Report By: Samir Jay DO Electronically signed By Samir Jay DO Dictated Date: 09/22/2022 2:51:41 PM Prelim Date: 09/22/2022 2:52:51 PM Sign Date: 09/22/2022 2:52:51 PM Ordering Provider: [facility] Clinical Note 09-22-2022 Note Date & Type Note Facility 09-22-2022 Note ORIGINAL EXAMINATION: ONE XRAY VIEW OF THE CHEST 09/22/2022 2:46 pm COMPARISON: 10/12/2016. HISTORY: ORDERING SYSTEM PROVIDED HISTORY: Reason for Exam: chest pain FINDINGS: Suboptimal exam secondary to patient habitus and portable technique. Within these limitations: Normal heart size for projection. Low lung volumes. No large pleural effusion or appreciable pneumothorax. No congestion. No consolidation. Degenerative changes of the spine and shoulder suspected. IMPRESSION: 1. Hypoventilation. Otherwise, no evidence of acute cardiopulmonary process. Interpreted by: Samir Jay DO Preliminary Report By: Samir Jay DO Electronically signed By Samir Jay DO Dictated Date: 09/22/2022 2:51:41 PM Prelim Date: 09/22/2022 2:52:51 PM Sign Date: 09/22/2022 2:52:51 PM Ordering Provider: [facility] Evaluation + Plan note Note Date & Type Note Facility Evaluation + Plan note No data available for this section [facility] Hospital Discharge instructions Note Date & Type Note Facility Hospital Discharge instructions No data available for this section [facility] Progress note Note Date & Type Note Facility Progress note No data available for this section [facility] Summary Purpose Family History No Family History Records FoundThere may be information available, but it has not been provided by the sender.No Family History Records Found Advance Directives No Advanced Directives Records FoundThere may be information available, but it has not been provided by the sender.No Advanced Directives Records Found Chief Complaint Chief Complaint Description Start Date back post Bilateral L5-S1 tr ansforaminal epidural steroid injection (the patient has lumbarized S1) on 10/29/2018 Preliminary chief co mplaint data, not yet signed by the author as of Instructions Instruction Description Start Date CompletedPatient advised to follow-up with Primary Care Physician for BMI management. Assessments There may be information available, but it has not been provided by the sender. Review of System There may be information available, but it has not been provided by the sender. History of Present Illness There may be information available, but it has not been provided by the sender. 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 Member Role: Other Name: TRENTON CONTEH DO Member Role: Primary Care Physician Address: Address: [facility] [address] [place] [address] Care Team Related Persons Name: ARIA DAMON Address: Home [address] [place] [address] [place] Name: BRIGITTE DAMON Address: Home [address] [place] [address] [place] Name: BRIGITTE DAMON Address: Home [address] [place] [address] [place] Name: BRIGITTE DAMON Address: Home [address] [place] [address] [place] Name: BRIGITTE DAMON Address: Home [address] [place] [address] Name: BRIGITTE DAMON Address: Home [address] [place] [address] [place] Name: BRIGITTE DAMON Address: Home [address] [place] [address] [place] Name: BRIGITTE DAMON Address: [address] Care Team Personnel Name: Rosalba Avalos PT 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 Member Role: Other Name: TRENTON CONTEH DO Member Role: Primary Care Physician Address: Address: [id number] [place] [address] Care Team Related Persons Name: ARIA DAMON Address: Home [address] Name: BRIGITTE DAMON Address: Home [address] [place] [address] [place] Name: BRIGITTE DAMON Address: Home [address] [place] [address] [place] Name: BRIGITTE DAMON Address: [address] [address] [place] [address] [place] Name: BRIGITTE DAMON Address: Home [address] [place] [address] [place] Name: BRIGITTE DAMON Address: Home [address] [place] [address] [place] Name: BRIGITTE DAMON Address: Home [address] [place] [address] Name: BRIGITTE DAMON Address: Home [address] [place] [address] [place] Patient Care team informatio n (unrecognized section and content) Care Team Personnel Name: Rosalba Avalos PT 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 Member Role: Other Name: TRENTON CONTEH DO Member Role: Primary Care Physician Address: Address: [address] [address] Name: DONTE Paris Position: AO RN Member Role: ED RN Name: BROOKE SANCHEZ MD Position: ED Physician Member Role: ED Physician Address: Address: [facility] [address] [place] [id number]- Care Team Related Persons Name: MARISOL, ARIA Murry Address: Home [address] [place] [address] [place] Name: BRIGITTE DAMON Address: [address] Name: BRIGITTE DAMON Address: Home [address] [place] [address] [place] Name: BRIGITTE DAMON Address: [address] Name: BRIGITTE DAMON Address: Home [address] [place] [address] Name: BRIGITTE DAMON Address: [address] Name: BRIGITTE DAMON Address: Home [address] [place] [address] [place] Name: BRIGITTE DAMON Address: [address] [address] [facility] [address] FOR RECORDS PERTAINING TO PATIENTS WHO ARE OR HAVE BEEN ENROLLED IN A CHEMICAL DEPENDENCY/SUBSTANCEABUSE PROGRAM, SOME INFORMATION MAY BE OMITTED. This clinical summary was aggregated from multiple sources. Caution should be exercised in using it in the provision of clinical care. This summary normalizes information from multiple sources, and as a consequence, information in this document may materially change the coding, format and clinical context of patient data. In addition, data may be omitted in some cases. CLINICAL DECISIONS SHOULD BE BASED ON THE PRIMARY CLINICAL RECORDS. [facility] [employer] provides no warranty or guarantee of the accuracy or completeness of information in this document.
== END | disposition home or self-care (01) ==
LOC: US 09:07
PROVIDERS: PCP Family Medicine; Referring Provider Internal Medicine; Visit Provider Internal Medicine
DX: K76.0 Fatty (change of) liver, not elsewhere classified (principal); K21.9 Gastro-esophageal reflux disease without esophagitis
CPT/HCPCS: 76705; 76981

== ENCOUNTER → 2023-09-28 | Outpatient (CLI) | payer MEDICARE, SELFPAY ==
--- NOTE | 2023-09-28 12:48 | STE_ITS ---
Reason For Study: DYSPNEA,SOB Stress Results Protocol: DOBUTAIMINE Maximum Predicted HR: 159 bpm Target HR: 135 bpm % Maximum Predicted HR: 95 % DurationHeart Rate Stage (mm:ss) (bpm) BP Dose Comment BASELINE 65 138/73 STAGE 1 3:00 64 130/7310.00 STAGE 2 3:00 65 146/9020.00 STAGE 3 4:27 91 169/7030.00LINES WERE KINKED, IVAC WAS ACTING UP. HAD TO FIX IV LINE STAGE 4 3:26 151 120/7640.001MG ATROPINE GIVEN RECOVERY 90 134/75 Stress Duration: 13:53 mm:ss Maximum Stress HR: 151 bpm Baseline Echocardiogram Findings Stress Echo Wall motion Data Resting WM Intermediate WM Stress WM ECHO/Stress Test Echo w/o Contrast Interpretation Summary Dobutamine stress echocardiogram. 63-year-old lady with a history of shortness of breath. Resting EKG demonstrates normal sinus rhythm with a rate of 65 bpm normal inter vals are noted resting blood pressure is 138/73 mmHg. Dobutamine was infused starting at 10 mc g/kg/min increasing in 3-minute x 2 a peak of 40 mcg/kg/min. 1 mg of atropine was given as 0.5 mg a tropine aliquots for attainment of target heart rate. At rest there were no ST or T wave changes not ed to suggest ischemia. The peak heart rate was 151 bpm which was 94% of max impacted heart r ate the maximum workload was 1 metabolic equivalent. The peak blood pressure was 169/70 mmHg th e test was terminated due to the target heart rate being achieved. Dobutamine echocardiogram. Resting echocardiogram demonstrated preserved left ventricular systolic functio n estimated at 60% with no wall motion abnormality noted. At low dose there was improvement in lef t ventricular systolic function and at peak dose there was contractility with near chamber ob literation noted estimated ejection fraction was 75% with no wall motion abnormalities present. Conclusion: Dobutamine stress echocardiogram with no EKG or echocardiographic evidence of i schemia. Ordering Physician: Mehran Wilson Referring Physician: Mehran Wilson Performed By: Ino Felix RCS
== END | disposition home or self-care (01) ==
LOC: CVS 12:48
PROVIDERS: PCP Family Medicine; Referring Provider Family Medicine; Visit Provider Family Medicine
DX: R06.00 Dyspnea, unspecified (principal)
CPT/HCPCS: 93017; 93350; J7040; Q9957; A4216

== ENCOUNTER → 2023-10-09 | Outpatient (CLI) | payer MEDICARE, SELFPAY ==
[2023-10-09 10:49] LABS: Absolute Lymphocyte Count 1.43 X10^3/uL (0.83-4.51); Absolute Neutrophil Count 2.5 X10^3/uL (2.0-7.7); Basophil# 0.03 X10^3/uL; Basophil% 0.7 % (0-1); Eosinophil# 0.25 X10^3/uL; Eosinophils% 5.4 % (0-5); Hematocrit 36.6 % (37-47); Hemoglobin 11.9 g/dL (12.0-15.0); Lymphocyte # 1.43 X10^3/ul (0.83-4.51); Lymphocyte % 31.1 % (19-41); Mean Corp Hgb Conc 32.5 g/dL (32-36); Mean Corpuscular Hgb 29.7 pg (27.0-32.0); Mean Corpuscular Volume 91.3 fL (81-99); Mean Platelet Vol. 11.1 fl (6.2-12.0); Monocyte# 0.37 X10^3/uL; NRBC Flagged by Analyzer 0 % (0-5); Neutrophil % 54.4 % (47-70); Platelet Count 188 K/mm3 (150-450); RBC Distribution Width CV 14.7 % (11.6-14.6); RBC Distribution Width SD 49.7 fl (35.1-43.9); Red Blood Count 4.01 M/mm3 (4.2-5.4); White Blood Count 4.6 K/mm3 (4.4-11.0)
[2023-10-09 11:08] LABS: Prothrombin Time (Protime)PT. 13.6 SECONDS (11.7-14.9)
[2023-10-09 11:22] LABS: CRP < 2.90 mg/L (0.0-3.0)
[2023-10-09 11:26] LABS: ALB/GLOB Ratio 0.9 RATIO (0.9-2.4); AST(SGOT) 20 U/L (15-37); Alanine Aminotransfer ALT/SGPT 28 U/L (13-56); Albumin, Serum 3.6 g/dL (3.2-5.0); Alkaline Phosphatase 80 U/L (45-117); Anion Gap 6 (5-15); BUN 15 mg/dL (7-18); BUN/Creat Ratio 17.9 RATIO (10-20); Calcium,Total 8.7 mg/dL (8.5-10.1); Chloride 108 mmol/L (98-107); Cholesterol 157 mg/dL (200); Creatinine, Serum 0.84 mg/dL (0.55-1.02); EST Glomerular Filtration Rate 74 mL/min (>60); Est Glom Filt Rate - Afr Amer 89 mL/min (>60); Globulin 3.9 g/dL (2.2-4.2); Glucose 101 mg/dL (74-106); High Density Lipoprotein 51 mg/dL; Potassium 3.9 mmol/L (3.5-5.1); Protein, Total 7.5 g/dL (6.4-8.2); Sodium Level 141 mmol/L (136-145); T4 Free Direct 0.84 ng/dL (0.76-1.46); Thyroid Stim Hormone (TSH) 0.07 uIU/mL (0.358-3.74); Triglycerides 137 mg/dL; Very Low Density Lipoprotein 27 mg/dL (5-40)
[2023-10-09 12:30] LABS: Hemoglobin A1c 5.8 % (3.8-5.6)
[2023-10-10 05:07] LABS: AFP, Tumor Marker 4.3 ng/mL (0.0-9.2); HEPATITIS B SURFACE AG Negative (Negative); Hep C Antibodies Non Reactive (Non Reactive); Hepatitis A IgM Antibody Negative (Negative); Hepatitis B Core AB IgM Negative (Negative)
[2023-10-10 11:09] LABS: ANTINUCLEAR ANTIBODIES DIRECT Negative (Negative)
== END | disposition home or self-care (01) ==
LOC: BIMLAB 10:05
PROVIDERS: Internal Medicine; PCP Family Medicine; Visit Provider Family Medicine
DX: E03.9 Hypothyroidism, unspecified (principal); F20.9 Schizophrenia, unspecified; E78.2 Mixed hyperlipidemia; K76.0 Fatty (change of) liver, not elsewhere classified; K21.9 Gastro-esophageal reflux disease without esophagitis; Z79.899 Other long term (current) drug therapy; R94.5 Abnormal results of liver function studies; Z51.81 Encounter for therapeutic drug level monitoring; Z98.890 Other specified postprocedural states
CPT/HCPCS: 80053; 80061; 80074; 82105; 83036; 84439; 84443; 85025; 85610; 86038; 86140; 86225; 86235

== ENCOUNTER → 2024-06-02 | Outpatient (CLI) | payer MEDICARE, SELFPAY | END | disposition home or self-care (01) | PROVIDERS: PCP Family Medicine; Referring Provider Internal Medicine; Visit Provider Internal Medicine | DX: K22.70 Barrett's esophagus without dysplasia (principal); K76.0 Fatty (change of) liver, not elsewhere classified | CPT/HCPCS: 76705; 76981 ==

== ENCOUNTER → 2024-10-14 | Outpatient (CLI) | payer MEDICARE, SELFPAY ==
[2024-10-14 13:36] LABS: ALB/GLOB Ratio 1.4 RATIO (0.9-2.4); AST(SGOT) 23 U/L (<=31); Alanine Aminotransfer ALT/SGPT 25 U/L (<=34); Albumin, Serum 4.2 g/dL (3.4-4.8); Alkaline Phosphatase 80 U/L (35-104); Anion Gap 13 (5-15); BUN 11 mg/dL (4-19); BUN/Creat Ratio 14.8 RATIO (10-20); Calcium,Total 9.1 mg/dL (7.6-11.0); Carbon Dioxide 23.7 mmol/L (21.0-32.0); Chloride 104 mmol/L (98-108); Cholesterol 123 mg/dL (<=200); Creatinine, Serum 0.73 mg/dL (0.70-1.20); EST Glomerular Filtration Rate 93 (>60); Glucose 91 mg/dL (70-99); High Density Lipoprotein 56 mg/dL; Low Density Lipoprotein Calc. 42 mg/dL; Potassium 4.4 mmol/L (3.3-5.1); Protein, Total 7.2 g/dL (5.9-8.4); Sodium Level 140 mmol/L (133-145); Thyroid Stim Hormone (TSH) 0.008 uIU/mL (0.300-4.200); Total Bilirubin 0.23 mg/dL (0.00-1.30); Triglycerides 123 mg/dL; Very Low Density Lipoprotein 25 mg/dL (5-40); cholesterol:hdl ratio screen 2.18
== END | disposition home or self-care (01) ==
LOC: BIMLAB 10:15
PROVIDERS: PCP Family Medicine; Referring Provider Family Medicine; Visit Provider Family Medicine
DX: E03.9 Hypothyroidism, unspecified (principal); I10 Essential (primary) hypertension; E78.5 Hyperlipidemia, unspecified
CPT/HCPCS: 36415; 80053; 80061; 84443

== ENCOUNTER → 2025-04-01 | Outpatient (CLI) | payer MEDICARE, SELFPAY ==
--- OUTSIDE RECORDS SUMMARY | 2025-04-01 09:27 | XMS RPT_ITS | CCD ---
Author Organization [facility] Care Team Providers Care Counselor Aide Name Role Phone Perri Uday Unavailable Unavailable Perri Uday Unavailable Unavailable Ana LOVE, Lu Chang Unavailable TRENTON WILSON DO Primary Care Physician Sarai Avalos PT Unavailable Unavailable Dr. Trenton Wilson Primary Care Provider [phone] Dr. Trenton Wilson Referring Provider 1([facility])20 FriendDr. Iyer Attending Provider 1([facility]) -[phone] Dr. Trenton Wilson Attending Provider Dr. Trenton Wilson Primary Care Provider [phone] Dr. Trenton Wilson Referring Provider 1([facility])20 Dr. Jaylon Medina Attending Provider 1([facility]) -[phone] Dr. Trenton Wilson Attending Provider 1([facility])20 2 Amairani SO, [employer] [place] Attending Provider 1([facility]) -[phone] BROOKE SANCHEZ MD Attending Unavailable BROWN DO, TRENTON R Primary Care Unavailable TARUN FOUNTAIN-Wilfrid HIRSCH Attending Unavailable BROWN DO, TRENTON R Primary Care Unavailable BROWN DO, TRENTON R Attending Unavailable WERO DO, TRENTON R Primary Care Unavailable MD JOSE MARIA BARRIENTOS Attending Unavailable BROWN DO, TRENTON R Primary Care Unavailable Brown, Trenton R Primary Care Unavailable Brown, Trenton R Referring Unavailable Jose Maria Barrientos Attending Unavailable Brown, Trenton R Attending Unavailable Brown, Trenton R Primary Care Unavailable Brown, Trenton R Referring Unavailable Brown, Trenton R Primary Care Unavailable Brown, Trenton R Referring Unavailable Jose Maria Barrientos Attending Unavailable Brown, Trenton R Attending Unavailable Brown, Trenton R Primary Care Unavailable Brown, Trenton R Referring Unavailable Brown, Trenton R Primary Care Unavailable Jose Maria Barrientos Referring Unavailable Jose Maria Barrientos Attending Unavailable Brown, Trenton R Attending Unavailable Brown, Trenton R Primary Care Unavailable Brown, Trenton R Referring Unavailable Brown, Trenton R Primary Care Unavailable Brown, Trenton R Referring Unavailable Jose Maria Barrientos Attending Unavailable Allergies Allergy Classification Reported Allergen(s) Allergy Type Date of Onset Reaction(s) Facility (1 source) Codeine Drug Allergy 9 blackouts [facility] Work Phone: (1 source) Cortisone Drug Allergy 9 unsure. did well with depo-medrol during an epidural steroid injection 10/2018 [facility] Work Phone: (1 source) PLANT POLLENS; Translations: [PLANT POLLENS] allergy to substance 9 [facility] Work Phone: (8 sources) Codeine; Translations: [codeine] Drug Allergy 2 Visual hallucinations, [facility] (8 sources) Cortisone; Translations: [cortisone] Drug Allergy 2 [facility] (4 sources) pregabalin Drug Allergy 2 Unknown [facility] Work Phone: (1 source) Codeine Drug Allergy 5 [facility] (1 source) Cortisone Drug Allergy 5 [facility] (1 source) pregabalin Drug Allergy 5 [facility] Medications Current Medications Medication Drug Class(es) Dates Sig (Normalized) Sig (Original) aspirin 81 mg oral tablet (12 sources) Platelet Aggregation Inhibitor, Nonsteroidal Anti-inflammatory Drug Start: 05-12-2021 take 81 mg by mouth once daily Aspirin Active 81 MG PO DAILY May 11, 2021 11:00pm Start: 10-12-2016 End: 05-12-2021 aspirin 325 mg oral tablet D ose : 325 mg = 1 tab(s), Oral, qDay Start Date: 10/12/16 Status: Ordered Repeat number: 1 CPAP equiptment and supplies (8 sources) Start: 04-29-2021 CPAP equiptmen t and supplies Active April 29, 2021 3:18pm As directed Start: 04-29-2021 CPAP equiptmen t and supplies Active April 29, 2021 4:18pm As directed Start: 10-03-2019 End: 04-29-2021 CPAP equiptment and supplies Discontinued October 02, 2019 11:00pm April 29, 2021 3:18pm As directed Start: 10-03-2019 End: 04-29-2021 CPAP equiptment and supplies Discontinued October 03, 2019 12:00am April 29, 2021 4:18pm As directed dicyclomine hydrochloride 20 mg oral tablet (12 sources) Anticholinergic Start: 03-22-2022 take 20 mg by mouth once Dicyclomine Active 20 MG PO ONCE March 21, 2022 11:00pm Start: 04-20-2020 End: 03-02-2021 take 20 mg by mouth twice daily as needed Dicyclomine Discontinued 20 MG PO TWICE A DAY 60 May 10, 2020 9:05am March 02, 2021 8:43am as needed for abdominal discomfort gabapentin 600 mg oral tablet (17 sources) Anti-epileptic Agent Start: 07-12-2015 End: 12-27-2017 gabapentin 600 mg oral tablet Dose : 600 mg = 1 tab(s), Oral, TID Start Date: 07/12/15 Status: Ordered Repeat number: 1 Start: 07-12-2015 End: 03-02-2021 take 600 mg by mouth three times daily Gabapentin Discontinued 600 MG PO THREE TIMES A DAY 90 February 11, 2018 2:54pm March 02, 2021 8:43am ibuprofen 600 mg oral tablet (12 sources) Nonsteroidal Anti-inflammatory Drug Start: 10-25-2018 take 1 tablet by mouth three times daily at mealtime ibuprofen 600 mg oral tablet TAKE 1 TABLET BY MOUTH THREE TIMES A DAY WITH FOOD Start Date: 10/25/18 Status: Ordered Repeat number: 1 Start: 10-23-2018 End: 05-16-2022 take 600 mg by mouth twice daily at mealtime Ibuprofen Discontinued 600 MG PO TWICE A DAY 60 October 23, 2018 8:23am May 16, 2022 3:09pm take with food Start: 10-01-2018 End: 10-23-2018 take 600 mg by mouth three times daily at mealtime Ibuprofen Discontinued 600 MG PO THREE TIMES A DAY September 30, 2018 11:00pm October 23, 2018 8:24am take with food Lactobacillus Combination No.9 (Adult 50 Plus Probiotic) 4 billion cell capsule (4 sources) Start: 05-12-2021 take 4 capsules by mouth once daily Lactobacillus Combination No.9 (Adult 50 Plus Probiotic) 4 billion cell capsule Active 4000 MMU CELLS PO DAILY May 11, 2021 11:00pm administer with a meal Start: 05-12-2021 take 4 capsules by m outh once daily Lactobacillus Combination No.9 (Adult 50 Plus Probiotic) 4 billion cell capsule Active 4000 MMU CELLS PO DAILY May 12, 2021 12:00am administer with a meal levothyroxine sodium 0.2 mg oral tablet (20 sources) l-Thyroxine Start: 09-22-2022 levothyroxine 200 mcg (0.2 mg) oral tablet Dose : 200 mcg = 1 tab(s), Oral, qDay, # 30 tab(s), 0 Refill(s) Start Date: 09/22/22 Status: Ordered Quantity: 30.0 Unit: tab(s) Repeat number: 1 Start: 03-02-2021 End: 01-25-2022 take 200 ug by mouth once daily Levothyroxine Disconti nued 200 MCG PO DAILY May 12, 2021 8:39am January 25, 2022 1:29pm Start: 01-22-2019 End: 03-02-2021 take 175 ug by mouth once daily Levothyroxine Disconti nued 175 MCG PO DAILY February 09, 2021 9:53am March 02, 2021 12:01pm Start: 01-14-2019 End: 01-22-2019 take 175 ug by mouth once daily Levothyroxine Disconti nued 175 MCG PO DAILY January 13, 2019 11:00pm January 22, 2019 11:46am Start: 08-22-2018 End: 01-22-2019 take 150 ug by mouth once daily Levothyroxine Disconti nued 150 MCG PO DAILY October 30, 2018 11:00pm January 22, 2019 11:46am Start: 12-06-2017 End: 10-31-2018 take 1 capsule by mouth once daily levothyroxine 150 mcg capsule Discontinued 150 MCG PO daily October 31, 2018 9:16am October 31, 2018 1:51pm Start: 11-09-2016 levothyroxine 150 mcg (0.15 mg) oral tablet Dose : 150 mcg = 1 tab(s), Oral, qDay, # 30 tab(s), 0 Refill(s) Start Date: 11/09/16 Status: Ordered meloxicam 7.5 mg oral tablet (3 sources) Nonsteroidal Anti-inflammatory Drug Start: 09-22-2022 meloxicam 7.5 mg oral tablet Dose : 7.5 mg = 1 tab(s), Oral, qDay, # 30 tab(s), 0 Refill(s) Start Date: 09/22/22 Status: Ordered Quantity: 30.0 Unit: tab(s) Repeat number: 1 Start: 05-16-2022 take 7.5 mg by mouth once zoya y Meloxicam Active 7.5 MG PO DAILY May 16, 2022 12:00am no NSAIDs while on this, tylenol is ok Multivitamin preparation (4 sources) Start: 11-08-2016 take 1 tablet by mouth once daily Multivitamin Dose = 1 tab(s), Oral, Daily, 0 Refill(s) Start Date: 11/08/16 Status: Ordered Repeat number: 1 Start: 11-08-2016 take 1 tablet by machelle th once daily Multivitamin Dose = 1 tab(s), Oral, Daily, 0 Refill(s) Start Date: 11/08/16 Status: Ordered OLANZapine 10 mg oral tablet (8 sources) Atypical Antipsychotic Start: 10-12-2016 End: 08-09-2018 OLANZapine 10 mg oral tablet Dose : 10 mg = 1 tab(s), Oral, Daily Start Date: 10/12/16 Status: Ordered Repeat number: 1 omeprazole 40 mg delayed release oral capsule (20 sources) Proton Pump Inhibitor Start: 03-02-2021 End: 05-12-2021 take 40 mg by mouth once daily Omeprazole Active 40 MG PO daily May 12, 2021 8:39am Start: 08-22-2018 OMEPRAZOLE 20 MG TBEC 1 tablet daily OMEPRAZOLE [id number] Sarai Rodriguez LPN Start: 03-05-2016 End: 03-02-2021 omeprazole 20 mg oral delaye d release capsule (NF) Dose : 20 mg = 1 cap(s), Oral, qDay Start Date: 03/05/16 Status: Ordered Repeat number: 1 propranolol hydrochloride 20 mg oral tablet (13 sources) beta-Adrenergic Sarah Start: 01-01-2015 End: 05-12-2021 propranolol 20 mg oral tablet Dose : 20 mg = 1 tab(s), Oral, Daily, 0 Refill(s) Start Date: 01/01/15 Status: Ordered Repeat number: 1 QUEtiapine 400 mg oral tablet (20 sources) Atypical Antipsychotic Start: 09-22-2022 QUEtiap ine 400 mg oral tablet Dose : 400 mg = 1 tab(s), Oral, qDay, # 180 tab(s), 0 Refill(s) Start Date: 09/22/22 Status: Ordered Quantity: 180.0 Unit: tab(s) Repeat number: 1 Start: 12-24-2018 End: 03-21-2022 take 2 tablets by mouth once daily at bedtime Quetiapine Discontinued 400 MG PO AT BEDTIME 180 March 20, 2022 9:54am March 21, 2022 9:50am TAKE 2 TABLETS BY MOUTH EVERY NIGHT AT BEDTIME Start: 12-06-2017 End: 12-24-2018 take 400 mg by mouth at bedtime Quetiapine Discontinue d 400 MG PO AT BEDTIME 90 November 16, 2018 1:50pm December 24, 2018 10:11am Start: 07-12-2015 End: 12-06-2017 take 200 mg by mouth twice daily Quetiapine Discontinued 200 MG PO TWICE A DAY 180 October 17, 2017 11:00pm December 06, 2017 12:17pm sertraline 100 mg oral tablet (20 sources) Serotonin Reuptake Inhibitor Start: 07-12-2015 End: 01-25-2022 sertraline 100 mg oral tablet Dose : 200 mg = 2 tab(s), Oral, Daily Start Date: 07/12/15 Status: Ordered Repeat number: 1 simvastatin 10 mg oral tablet (20 sources) HMG-CoA Reductase Inhibitor Start: 12-06-2017 End: 05-12-2021 simvastatin 10 mg oral tablet Dose : 10 mg = 1 tab(s), Oral, qHS, # 30 tab(s), 0 Refill(s) Start Date: 08/05/19 Status: Ordered Quantity: 30.0 Unit: tab(s) Repeat number: 1 SUMAtriptan 25 mg oral tablet (9 sources) Serotonin-1b and Serotonin-1d Receptor Agonist Start: 08-22-2018 SUMATRIPTAN SUCCINAT E 25 MG TABS as directed as needed SUMATRIPTAN SUCCINATE [id number] Sarai Rodriguez BARTOLO Start: 12-06-2017 End: 05-12-2021 take 1 dose by mouth once as needed for headache SUMAtriptan Dose : 25 mg =, Oral, Once, PRN as needed for migraine headache Start Date: 09/24/18 Status: Ordered Repeat number: 1 thyroid (long term) 30 mg oral tablet (16 sources) Start: 07-12-2015 End: 01-16-2018 Patterson Thyroid 30 mg oral tablet Dose : 30 mg = 1 tab(s), Oral, qDayAC Start Date: 07/12/15 Status: Ordered Repeat number: 1 tiZANidine 2 mg oral tablet (13 sources) Central alpha-2 Adrenergic Agonist Start: 03-05-2016 End: 05-16-2022 tiZANidine 2 mg oral tablet Dose : 2 mg = 1 tab(s), Oral, qPM, PRN Muscle Aches Start Date: 03/05/16 Status: Ordered Repeat number: 1 ursodiol 250 mg oral tablet (8 sources) Bile Acid Start: 09-20-2021 End: 11-15-2021 take 1 tablet by mouth twice daily Ursodiol Active 0 .ROUTE .COMPLEX 180 November 15, 2021 10:32am TAKE 1 TABLET BY MOUTH TWICE DAILY Completed/Discontinued Medications Medication Drug Class(es) Dates Sig (Normalized) Sig (Original) amoxicillin 875 mg / clavulanate 125 mg oral tablet (8 sources) Penicillin-class Antibacterial Start: 06-28-2020 End: 07-05-2020 take 1 tablet by mouth twice daily Amoxicillin-Pot Clavulanate (Augmentin) 875-125 mg tablet Discontinued 1 TABLET PO TWICE A DAY June 28, 2020 12:00am July 05, 2020 9:02am Start: 01-16-2018 End: 03-08-2018 take 1 tablet by mouth twice daily Amoxicillin-Pot Clavulanate (Augmentin) 875-125 mg tablet Discontinued 1 TABLET PO TWICE A DAY January 15, 2018 11:00pm March 08, 2018 7:27am bisacodyl 5 mg delayed release oral tablet (8 sources) Stimulant Laxative Start: 12-06-2017 End: 08-09-2018 take 5 mg by mouth twice daily Bisacodyl Discontinued 5 MG PO TWICE A DAY December 26, 2017 11:00pm August 09, 2018 12:49pm cephalexin 250 mg oral capsule (4 sources) Cephalosporin Antibacterial Start: 06-15-2020 End: 07-05-2020 take 250 mg by mouth every eight hours Cephalexin Discontinued 250 MG PO Q8H June 15, 2020 12:00am July 05, 2020 9:02am doxycycline hyclate 100 mg oral capsule (4 sources) Tetracycline-class Drug Start: 04-26-2021 End: 05-12-2021 take 100 mg by mouth twice daily Doxycycline Hyclate Discontinued 100 MG PO TWICE A DAY April 25, 2021 11:00pm May 12, 2021 8:33am fluticasone propionate 0.05 mg/actuat metered dose nasal spray (9 sources) Corticosteroid Start: 01-22-2019 take 1 spray(s) nasal route once daily as needed FLUTICASONE PROPIONATE 50 MCG/ACT SUSP one spray into each nostril daily as needed FLUTICASONE PROPIONATE [id number] Lu Perez MD Start: 10-25-2018 take 1 dose nasal ro [place] once daily in the morning fluticasone 50 mcg/inh NASAL spray Dose = 1 spray(s), Nostril, each, qAM, 0 Refill(s) Start Date: 10/25/18 Status: Ordered Repeat number: 1 Start: 12-27-2017 Fluticasone Pr opionate (Flonase Allergy Relief) 50 mcg/actuation spray,suspension Active 2 SPRAY INTRANASAL daily December 26, 2017 11:00pm levoFLOXacin 500 mg oral tablet (4 sources) Quinolone Antimicrobial Start: 07-05-2020 End: 03-02-2021 take 500 mg by mouth once daily Levofloxacin Discontinued 500 MG PO DAILY July 05, 2020 12:00am March 02, 2021 8:43am lisinopril 20 mg oral tablet (4 sources) Angiotensin Converting Enzyme Inhibitor Start: 12-06-2017 End: 08-09-2018 take 20 mg by mouth once daily Lisinopril Discontinued 20 MG PO daily December 05, 2017 11:00pm August 09, 2018 12:49pm MULTIPLE VITAMINS-MINERALS (1 source) Start: 01-22-2019 MULTIVITAMIN A DULT TABS takes one daily MULTIPLE VITAMINS-MINERALS [id number] Lu Perez MD ofloxacin 3 mg/ml otic solution (4 sources) Quinolone Antimicrobial Start: 01-16-2018 End: 01-23-2018 Ofloxacin Discontinued 10 DRP OTIC daily 10 7 January 15, 2018 11:00pm January 22, 2018 11:07pm 24 hr oxybutynin chloride 10 mg extended release oral tablet (12 sources) Cholinergic Muscarinic Antagonist Start: 12-06-2017 End: 08-09-2018 take 10 mg by mouth once daily Oxybutynin Chloride Discontinued 10 MG PO daily April 09, 2018 12:32pm August 09, 2018 12:49pm Start: 10-12-2016 take 1 tablet by machelle th every hour, then take 1 tablet by mouth once daily oxybutynin 10 mg/24 hr oral tablet, extended release Dose : 10 mg = 1 tab(s), Oral, Daily Start Date: 10/12/16 Status: Ordered Repeat number: 1 polyethylene glycol 3350 [id number] mg / potassium chloride 1480 mg / sodium bicarbonate 5720 mg / sodium chloride 77576 mg powder for oral solution (4 sources) Osmotic Laxative Start: 12-06-2017 End: 12-27-2017 Peg-Electrolyte Soln Discontinued 240 ML PO Q10M December 05, 2017 11:00pm December 27, 2017 9:13am traMADol hydrochloride 100 mg oral tablet (8 sources) Opioid Agonist Start: 11-16-2021 End: 03-22-2022 take 100 mg by mouth every twelve hours Tramadol Discontinued 100 MG PO Q12H November 15, 2021 11:00pm March 22, 2022 8:51am Start: 10-01-2018 End: 10-23-2018 take 50 mg by mouth every twelve hours Tramadol Discontinued 50 MG PO Q12H September 30, 2018 11:00pm October 23, 2018 8:24am Problems Active Problems Problem Classification Problem Date Documented Da te Episodic/Chronic Diabetes mellitus without complication (1 source) Prediabetes; Translations: [Prediabetes] Onset: Episodic Disorders of lipid metabolism (9 sources) Hyperlipidemia; Translations: [Hyperlipidemia, unspecified] Onset: 5 Chronic Esophageal disorders (19 sources) Gastroesophageal reflux disease; Translations: [Gastro-esophageal reflux disease without esophagitis] Onset: 5 Chronic Essential hypertension (5 sources) Hypertensive disorder; Translations: [Essential (primary) hypertension] Onset: 5 Chronic Mood disorders (4 sources) Depressive disorder Onset: 3 01-08-2013 Chronic Nonspecific chest pain (1 source) Chest pain; Translations: [Chest pain, unspecified] Onset: 3 Episodic Osteoarthritis (4 sources) Arthritis; Translations: [Unspecified osteoarthritis, unspecified site] Chronic Other acquired deformities (1 source) Lumbar spondylolisthesis; Translations: [Spondylolisthesis, lumbar region] Onset: 9 10-23-2018 Other circulatory disease (4 sources) History of angioplasty; Translations: [Peripheral vascular angioplasty status] Episodic Other gastrointestinal disorders (4 sources) Irritable bowel syndrome; Translations: [Irritable bowel syndrome without diarrhea] Chronic Other gastrointestinal disorders (7 sources) Irritable bowel syndrome without diarrhea; Translations: [Irritable bowel syndrome] Onset: 5 Chronic Other gastrointestinal disorders (4 sources) Small bowel bacterial overgrowth syndrome; Translations: [Other specified diseases of intestine] Episodic Other gastrointestinal disorders (4 sources) Pale feces; Translations: [Other fecal abnormalities] Episodic Other gastrointestinal disorders (2 sources) Other specified diseases of intestine; Translations: [Other specified disorders of intestine] Episodic Other gastrointestinal disorders (1 source) Diarrhea, unspecified; Translations: [Diarrhea, unspecified] Onset: 5 Episodic Other liver diseases (4 sources) Steatosis of liver; Translations: [Fatty (change of) liver, not elsewhere classified] Chronic Other liver diseases (7 sources) Fatty (change of) liver, not elsewhere classified; Translations: [Other chronic nonalcoholic liver disease] Onset: 5 Chronic Other nervous system disorders (8 sources) Carpal tunnel syndrome; Translations: [Carpal tunnel syndrome, right upper limb] Chronic Other nervous system disorders (4 sources) H/O: migraine; Translations: [Personal history of other diseases of the nervous system and sense organs] Episodic Other non-traumatic joint disorders (1 source) Multiple joint pain; Translations: [Pain in unspecified joint] Episodic Other non-traumatic joint disorders (1 source) Pain in unspecified joint; Translations: [Pain in joint, multiple sites] Episodic Other skin disorders (4 sources) Finding of neck region; Translations: [Localized swelling, mass and lump, neck] Episodic Other upper respiratory disease (4 sources) Seasonal allergy; Translations: [Other seasonal allergic rhinitis] Chronic Residual codes; unclassified (4 sources) History of vaccination; Translations: [Personal history of other drug therapy] Episodic Residual codes; unclassified (4 sources) History of cardiac catheterization; Translations: [Other specified postprocedural states] Episodic Residual codes; unclassified (4 sources) Current drinker; Translations: [Other problems related to lifestyle] Episodic Residual codes; unclassified (4 sources) Past history of procedure; Translations: [Other specified postprocedural states] Episodic Residual codes; unclassified (4 sources) History of colonoscopy; Translations: [Other specified postprocedural states] Episodic Schizophrenia and other psychotic disorders (14 sources) Schizophrenia; Translations: [Schizophrenia, unspecified] Onset: 5 11-09-2016 Chronic Spondylosis; intervertebral disc disorders; other back problems (12 sources) Backache; Translations: [Dorsalgia, unspecified] Episodic Spondylosis; intervertebral disc disorders; other back problems (1 source) Stenosis of lumbar vertebral foramen; Translations: [Other biomechanical lesions of lumbar region] Onset: 9 10-23-2018 Syncope (4 sources) Syncope; Translations: [Syncope and collapse] Episodic Thyroid disorders (5 sources) Hypothyroidism; Translations: [Hypothyroidism, unspecified] Onset: 5 Chronic Past or Other Problems Problem Classification Problem Date Documented Date Episodic/Chronic Residual codes; unclassified (4 sources) Hallucinations Onset: 01-09-2012 01-08-2013 Episodic Comment on above: states that they sta rted approximately 1 yr. ago Unclassified (1 source) Problem Results Test Name Value Interpretation Reference Range Facility Gastroenterology Visit Repor ton 12-04-2024 Gastroenterology Visit Report [facility] [address] [place] [address] OFFICE VISIT Date of Service: 12/04/24 MR#: [id number] Acct: [id number] Name: MARISOLLIANSOY CHEN Rep #: [id number] : 1960 Provider: Dr. Jose Maria ramos MD Age/Sex: 64/F Location: [facility] Status: Signed Intake Vital Signs 08/19/24 13:30 10/14/24 09:49 12/04/24 12:57 Height 5 ft 5 in 5 ft 5 in 5 ft 5 in Weight: 277 lb 274 lb 275 lb BMI 46.0 45.6 45.7 BP 171/80 H 142/84 H 135/76 H Blood Pressure Location Rt brachial Lt brachial Rt brachial Position Sitting Sitting Respiration 16 Pulse 74 60 68 Pulse Source Monitor Temp 97 F L Temp Source Temporal Pulse Oximetry (%) 92 97 95 Oxygen Delivery Method room air room air room air Intake Visit Reasons: 4 M FU Chief Complaint: 6 month FU Allergies codeine Allergy (Unknown, Verified 12/04/24 12:56) Unknown cortisone Allergy (Unknown, Verified 12/04/24 12:56) Unknown pregabalin (From Lyrica) Allergy (Unknown, Verified 12/04/24 12:56) Unknown Medications ???Medication ???Instructions ???Recorded ???Confirmed ???Type fluticasone propionate 50 2 spray intranasal QDAY seasonal 0 12/27/17 12/04/24 History mcg/actuation nasal allergies spray,suspension (Flonase Allergy Relief) CPAP equiptment and supplies #1 ea 04/29/21 12/04/24 Rx aspirin 81 mg capsule 81 mg PO DAILY 05/12/21 12/04/24 H istory lactobacillus combination no.9 4 4,000 mmu cells PO DAILY 05/12/21 12/04/24 History billion cell capsule (Adult 50 Plus Probiotic) metformin 500 mg tablet 500 mg PO BID 90 days #180 tabs 12/04/24 Rx atorvastatin 20 mg tablet 20 mg PO QHS #90 tabs 10/14/24 Rx good zymes PO 10/14/24 12/04/24 History levothyroxine 150 mcg tablet 150 mcg PO DAILY #90 TABLETS 10/1412/04/24 Rx lisinopril 20 mg tablet 20 mg PO DAILY #90 tabs 10/14/24 0 12/04/24 Rx omeprazole 40 mg capsule,delayed 40 mg PO QDAY #90 caps 10/14/24 Rx release quetiapine 400 mg tablet See Rx Instructions .Route 5 12/04/24 Rx .COMPLEX #90 tabs sertraline 100 mg tablet See Rx Instructions .Route 5 12/04/24 Rx .COMPLEX #180 tabs ursodiol 250 mg tablet See Rx Instructions .Route 5 12/04/24 Rx .COMPLEX #200 tabs PFSH Medical History Prediabetes Medication monitoring encounter Ambulates with cane Low iron History of edema History of irregular heartbeat Chest pain Long-term use of high-risk medication Polyarthralgia Small intestinal bacterial overgrowth Wears glasses Schizophrenia Alcohol use Thyroid disease Arthritis Anemia Easy bruising Back pain Injury of head and neck History of IBS Gastric reflux Non-smoker CPAP (continuous positive airway pressure) dependence Shortness of breath on exertion History of stress test Barretts esophagus COVID-19 vaccine series completed Intermittent claudication Carpal tunnel syndrome of right wrist Seasonal allergies History of migraine Irritable bowel syndrome (IBS) Hypertensive disorder Schizophrenia Hyperlipidemia Hypothyroid Surgical History History of tubal ligation History of colonoscopy History of esophagogastroduodenoscopy (EGD) History of cardiac cath History of tonsillectomy History of angioplasty Status post correction of deviated nasal septum Family History Sister Arthritis Hypertension Brother Arthritis Hypertension Mother Arthritis Hypertension Father Hypertension CVA (cerebral vascular accident) Uncle Hypertension Social History Smoking Status: Never smoker second hand exposure: No alcohol intake: current alcohol intake frequency: holidays/special occasions only substance use type: does not use caffeine: Yes what type of physical activity do you participate in: swimming and aerobics frequency: 1-2 times per week HPI HPI Chief Complaint: 6 month FU Details: LIAN DAMON, is a 64 F who presents to the office today for follow up. *[facility] established 9..21 for Gonzalez???s esophagus surveillance and history of polyps. 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 EGD and colonoscopy .11.26. 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 Colonoscopy one TA polyp at hepatic flexure; two non-bleeding polyps in the colon. OV 04.26.21 with continues loose stools alternating with constipation and reflux with some emesis. OV 12..21 with symptom improvement of loose stools and constipation. Reflux continues to be an issu (more content not included)... Normal [facility] Comprehensive Metabolic Prof ilon 10-14-2024 Albumin [Mass/Vol] 4.2 g/dL Normal 3.4-4.8 [facility] Comment on above: Performed By: #### L 500.4050, L500.4100, L501.9520 #### [facility] [address] [place], [address] Albumin/Globulin [Mass ratio] 1.4 {ratio} Normal 0.9-2.4 [facility] Comment on above: Performed By: #### L 500.4050, L500.4100, L501.9520 #### [facility] [address] [place], [address] ALK PHOS 80 U/L Normal 35-104 [facility] Comment on above: Performed By: #### L 500.4050, L500.4100, L501.9520 #### [facility] [address] [place], [address] ALT [Catalytic activity/Vol] 25 U/L Normal <=34 [facility] Comment on above: Performed By: #### L 500.4050, L500.4100, L501.9520 #### [facility] [address] [place], [address] AST [Catalytic activity/Vol] 23 U/L Normal <=31 [facility] Comment on above: Performed By: #### L 500.4050, L500.4100, L501.9520 #### [facility] [address] [place], [address] Bilirubin [Mass/Vol] 0.23 mg/dL Normal 0.00-1.30 [facility] Comment on above: Performed By: #### L 500.4050, L500.4100, L501.9520 #### [facility] [address] [place], [address] BUN/CRE 14.8 RATIO Normal 10-20 [facility] Comment on above: Performed By: #### L 500.4050, L500.4100, L501.9520 #### [facility] [address] [place], [address] Calcium [Mass/Vol] 9.1 mg/dL Normal 7.6-11.0 [facility] Comment on above: Performed By: #### L 500.4050, L500.4100, L501.9520 #### [facility] [address] [place], [address] Chloride [Moles/Vol] 104 mmol/L Normal 98-108 [facility] Comment on above: Performed By: #### L 500.4050, L500.4100, L501.9520 #### [facility] [address] [place], [address] CO2 [Moles/Vol] 23.7 mmol/L Normal 21.0-32.0 [facility] Comment on above: Performed By: #### L 500.4050, L500.4100, L501.9520 #### [facility] [address] [place], [address] Creatinine [Mass/Vol] 0.73 mg/dL Normal 0.70-1.20 [facility] Comment on above: Performed By: #### L 500.4050, L500.4100, L501.9520 #### [facility] [address] [place], [address] GAP 13 Normal 5-15 [facility] Comment on above: Performed By: #### L 500.4050, L500.4100, L501.9520 #### [facility] [address] [place], [address] GFR/1.73 sq M.predicted among non-blacks MDRD (S/P/Bld) [Vol rate/Area] 93 mL/min/{1.73_m2} Normal >60 [facility] Comment on above: Result Comment: mL/m in/1.73m2 CKD-EPI Creatinine Equation (2020) Performed By: #### L 500.4050, L500.4100, L501.9520 #### [facility] [address] [place], [address] Globulin (S) [Mass/Vol] 3.0 g/dL Normal 2.2-4.2 [facility] Comment on above: Performed By: #### L 500.4050, L500.4100, L501.9520 #### [facility] [address] [place], [address] Glucose [Mass/Vol] 91 mg/dL Normal 70-99 [facility] Comment on above: Performed By: #### L 500.4050, L500.4100, L501.9520 #### [facility] [address] [place], [address] Potassium [Moles/Vol] 4.4 mmol/L Normal 3.3-5.1 [facility] Comment on above: Performed By: #### L 500.4050, L500.4100, L501.9520 #### [facility] [address] [place], [address] Sodium [Moles/Vol] 140 mmol/L Normal 133-145 [facility] Comment on above: Performed By: #### L 500.4050, L500.4100, L501.9520 #### [facility] [address] [place], [address] T PROT 7.2 g/dL Normal 5.9-8.4 [facility] Comment on above: Performed By: #### L 500.4050, L500.4100, L501.9520 #### [facility] [address] [place], [address] Urea nitrogen [Mass/Vol] 11 mg/dL Normal 4-19 [facility] Comment on above: Performed By: #### L 500.4050, L500.4100, L501.9520 #### [facility] [address] [place], [address] Internal Medicine Office Vis iton 10-14-2024 Internal Medicine Office Visit [facility] [address] [place], [place] [address] OFFICE VISIT Date of Service: 10/14/24 MR#: [id number] Acct: [id number] Name: LIAN DAMON Rep #: [id number] : 1960 Provider: Dr. Trenton parks, DO Age/Sex: 64/F Location: [facility] Status: Signed Intake Vital Signs 04/15/24 08:47 08/19/24 13:30 10/14/24 09:49 Height 5 ft 5 in 5 ft 5 in 5 ft 5 in Weight: 274 lb BMI 45.6 BP 142/84 H Blood Pressure Location Lt brachial Position Sitting Respiration 16 Pulse 60 Pulse Source Monitor Temp 97 F L Temp Source Temporal Pulse Oximetry (%) 97 Oxygen Delivery Method room air Intake Visit Reasons: 6 m fu Chief Complaint: 6 month FU 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: No Is patient in pain?: No Allergies codeine Allergy (Unknown, Verified 10/14/24 09:36) Unknown cortisone Allergy (Unknown, Verified 10/14/24 09:36) Unknown pregabalin (From Lyrica) Allergy (Unknown, Verified 10/14/24 09:36) Unknown Medications ???Medication ???Instructions ???Recorded ???Confirmed ???Type fluticasone propionate 50 2 spray intranasal QDAY seasonal 0 12/27/17 10/14/24 History mcg/actuation nasal allergies spray,suspension (Flonase Allergy Relief) CPAP equiptment and supplies #1 ea 04/29/21 05/20/24 Rx aspirin 81 mg capsule 81 mg PO DAILY 05/12/21 10/14/24 H istory lactobacillus combination no.9 4 4,000 mmu cells PO DAILY 05/12/21 10/14/24 History billion cell capsule (Adult 50 Plus Probiotic) metformin 500 mg tablet 500 mg PO BID 90 days #180 tabs 10/14/24 Rx atorvastatin 20 mg tablet 20 mg PO QHS #90 tabs 10/14/2403/02 Rx good zymes PO 10/14/24 History levothyroxine 200 mcg tablet 200 mcg PO DAILY #100 TABLETS 03/0210/14/24 Rx lisinopril 20 mg tablet 20 mg PO DAILY #90 tabs 10/14/24 0 10/14/24 Rx omeprazole 40 mg capsule,delayed 40 mg PO QDAY #90 caps 10/14/24 Rx release quetiapine 400 mg tablet See Rx Instructions .Route 5 10/14/24 Rx .COMPLEX #90 tabs sertraline 100 mg tablet See Rx Instructions .Route 5 10/14/24 Rx .COMPLEX #180 tabs ursodiol 250 mg tablet See Rx Instructions .Route 5 10/14/24 Rx .COMPLEX #200 tabs Nurse's Note: needs everything refilled. [facility] Medical History (Updated 10/14/24 @ 09:38 by Farideh Corona MA) Prediabetes Medication monitoring encounter Ambulates with cane Low iron History of edema History of irregular heartbeat Chest pain Long-term use of high-risk medication Polyarthralgia Small intestinal bacterial overgrowth Wears glasses Schizophrenia Alcohol use Thyroid disease Arthritis Anemia Easy bruising Back pain Injury of head and neck History of IBS Gastric reflux Non-smoker CPAP (continuous positive airway pressure) dependence Shortness of breath on exertion History of stress test Barretts esophagus COVID-19 vaccine series completed Intermittent claudication Carpal tunnel syndrome of right wrist Seasonal allergies History of migraine Irritable bowel syndrome (IBS) Hypertensive disorder Schizophrenia Hyperlipidemia Hypothyroid Surgical History History of tubal ligation History of colonoscopy History of esophagogastroduodenoscopy (EGD) History of cardiac cath History of tonsillectomy History of angioplasty Status post correction of deviated nasal septum Family History Sister Arthritis Hypertension Brother Arthritis Hypertension Mother Arthritis Hypertension Father Hypertension CVA (cerebral vascular accident) Uncle Hypertension Social History Smoking Status: Never smoker second hand exposure: No alcohol intake: current alcohol intake frequency: holidays/special occasions only substance use type: does not use caffeine: Yes what type of physical activity do you participate in: swimming and aerobics frequency: 1-2 times per week HPI HPI Chief Complaint: 6 month FU Details: LIAN DAMON, is a 64 F who presents to the office today for a 6-month follow-up exam. She says she is doing well although her back pain is about the same. Her weight has been stable. She denies having any hallucinations or delusions. She lives at home and takes care of herself although her son and [id number] live next-door. ROS Const Constitutional: No body ache, chills, excessive sweating, fatigue, fever(s), frequent falls, headache(s), snoring, weakness, sleep problems or change in appetite Eyes Eyes: No blurry vision, change in vision, eye pain or Light sensitivity ENT ENT: No abnormal hearing, ear or mastoid (more content not included)... [facility] Lipid Profileon 10-14-2024 CHOL:HDL 2.18 [facility] Comment on above: Performed By: #### L 500.4117, L500.3180, L501.9534 #### [facility] [address] [place], [address] Cholesterol [Mass/Vol] 123 mg/dL Normal <=200 [facility] Comment on above: Result Comment: Chol esterol level, Desirable <200 mg/dL Borderline high cholesterol 200-239 mg/dL High cholesterol >=240 mg/dL Recommendations of the NCEP Adult Treatment Panel for the following risk-cutoff thresholds for the [place] population. Performed By: #### L 500.4050, L500.4100, L501.9520 #### [facility] [address] [place], [address] Cholesterol in HDL [Mass/Vol] 56 mg/dL Normal [facility] Comment on above: Result Comment: Kalie onal Cholesterol Education Program (NCEP) guidelines: <40 mg/dL: Low HDL-cholesterol (major risk factor for CHD) >= 60 mg/dL: High HDL-cholesterol (negative risk factor for CHD) HDL-cholesterol is affected by a number of factors, e.g. smoking, exercise, hormones, sex and age. Performed By: #### L 500.4050, L500.4100, L501.9520 #### [facility] [address] [place], [address] Cholesterol in LDL [Mass/Vol] 42 mg/dL Normal [facility] Comment on above: Result Comment: Bord vagozy=565-925 mg/dL Higher Ktkl=460 mg/dL or greater Performed By: #### L 500.4050, L500.4100, L501.9520 #### [facility] [address] [place], [address] Cholesterol in VLDL [Mass/Vol] 25 mg/dL Normal 5-40 [facility] Comment on above: Performed By: #### L 500.4050, L500.4100, L501.9520 #### [facility] [address] [place], [address] Triglyceride [Mass/Vol] 123 mg/dL Normal [facility] Comment on above: Result Comment: The drugs N-Acetylcysteine and Metamizole may falsely depress this assay. Normal range: <150 mg/dL Borderline High: 150-199 mg/dL High: 200-499 mg/dL Very High: >500 mg/dL Performed By: #### L 500.4050, L500.4100, L501.9520 #### [facility] [address] [place], [address] Thyroid Stim Hormone (TSH)on 10-14-2024 TSH 0.008 uIU/mL Low 0.300-4.20 0 [facility] Comment on above: Performed By: #### L 500.4050, L500.4100, L501.9520 #### [facility] [address] [place], [address] PANCEFon 08-25-2024 Panc Elastase Stl 796 mcgE1/g Normal >200 [facility] Comment on above: Result Comment: Shelbie re Pancreatic Insufficiency: <100 Moderate Pancreatic Insufficiency: 100 - 200 Normal: >200 Performed At: [facility] [id number] Huber Rosa MD Ph:[phone] Performed By: #### P RO, ANEU, ADIFF, CBC, LIPID, A1C #### [address] [address] CALPROon 08-22-2024 Calprotectin Interp Normal Normal Normal [facility] Comment on above: Result Comment: Inte rpretation: <50.0 ug/g: Normal 50.0 ug/g - 120.0 ug/g: Borderline elevated. Re-evaluation in 4-6 weeks is recommended if clinically indicated. >120.0 ug/g: Elevated Performed By: [facility] [place] [id number] Child And Adolescent Psychologist: Sajan Frances III, M.D. CLIA#: [id number] Performed By: #### P RO, ANEU, ADIFF, CBC, LIPID, A1C #### [address] [address] Calprotectin, Fecal Quantitative 34.5 ug/g Normal <50 [facility] Comment on above: Result Comment: Perf ormed By: [facility] [address] [place] [address] Child And Adolescent Psychologist: Sajan Frances III, M.D. CLIA#: [id number] Performed By: #### P RO, ANEU, ADIFF, CBC, LIPID, A1C #### [place] [id number] FFATQLon 08-22-2024 Neutral Fats Stl Normal Normal [facility] Comment on above: Result Comment: Norm al (<60 Droplets/HPF) This test was developed and its performance characteristics determined by [facility]. It has not been cleared or approved by the Food and Drug Administration. Performed By: #### ROCHELLE CULVERCR, [id number] #### [place] [address] #### STGIPCR #### [place] [address] Total Fats l Normal Normal [facility] Comment on above: Result Comment: Norm al (<100 Droplets/HPF) This test was developed and its performance characteristics determined by [facility]. It has not been cleared or approved by the Food and Drug Administration. Performed At: [address] [id number] Javed Hardy PhD Ph:[phone] Performed By: #### ROCHELLE CULVERCR, [id number] #### [place] [address] #### STGIPCR #### [place] [address] .Auto Diffon 08-21-2024 Basophil, Absolute 0.0 10 3/mcL Normal 0.0-0.2 [facility] Comment on above: Performed By: #### P RO, ANEU, ADIFF, CBC, LIPID, A1C #### [place] [address] Basophils/100 WBC (Bld) 0.4 % Normal 0.0-2.5 [facility] Comment on above: Performed By: #### P RO, ANEU, ADIFF, CBC, LIPID, A1C #### [place] [address] Eosinophil, Absolute 0.2 10 3/mcL Normal 0.0-0.7 [facility] Comment on above: Performed By: #### P RO, ANEU, ADIFF, CBC, LIPID, A1C #### [address] [address] Eosinophils/100 WBC (Bld) 4.4 % Normal 0.0-7.0 [facility] Comment on above: Performed By: #### P RO, ANEU, ADIFF, CBC, LIPID, A1C #### [address] [address] Lymphocyte, Absolute 1.8 10 3/mcL Normal 0.9-4.3 [facility] Comment on above: Performed By: #### P RO, ANEU, ADIFF, CBC, LIPID, A1C #### [address] [address] Lymphocytes/100 WBC (Bld) 33.8 % Normal 20.0-40.0 [facility] Comment on above: Performed By: #### P RO, ANEU, ADIFF, CBC, LIPID, A1C #### [address] [address] Monocyte, Absolute 0.5 10 3/mcL Normal 0.1-1.4 [facility] Comment on above: Performed By: #### P RO, ANEU, ADIFF, CBC, LIPID, A1C #### [address] [address] Monocytes/100 WBC (Bld) 8.8 % Normal 2.0-13.0 [facility] Comment on above: Performed By: #### P RO, ANEU, ADIFF, CBC, LIPID, A1C #### [address] [address] Neutrophils/100 WBC (Bld) 52.6 % Normal 50.0-75.0 [facility] Comment on above: Performed By: #### P RO, ANEU, ADIFF, CBC, LIPID, A1C #### [address] [address] .NEUABSon 08-21-2024 Neutrophil, Absolute 2.8 10 3/mcL Normal 2.3-8.1 [facility] Comment on above: Performed By: #### P RO, ANEU, ADIFF, CBC, LIPID, A1C #### [place] [id number] A1Con 08-21-2024 Glucose [Mass/Vol] 126 mg/dL Normal [facility] Comment on above: Result Comment: Jessica mated Average Glucose calculated by equation ((28.7xA1C)-46.7) Estimated average glucose (eAG) is a calculated value from Hemoglobin A1C and is small business sales representative of the average blood glucose level in the last 2-3 month period. Normal range: less than 114 mg/dL Performed By: #### P RO, ANEU, ADIFF, CBC, LIPID, A1C #### [place] [address] HbA1c (Bld) [Mass fraction] 6.0 % Normal 4.3-6.4 [facility] Comment on above: Performed By: #### P RO, ANEU, ADIFF, CBC, LIPID, A1C #### [place] [address] CBCon 08-21-2024 Erythrocyte distribution width (RBC) [Ratio] 14.9 % Normal 11.5-15.5 [facility] Comment on above: Performed By: #### P RO, ANEU, ADIFF, CBC, LIPID, A1C #### [place] [address] Hematocrit (Bld) [Volume fraction] 36.2 % Normal 34.0-46.0 [facility] Comment on above: Performed By: #### P RO, ANEU, ADIFF, CBC, LIPID, A1C #### [address] [address] Hgb 12.2 G/dL Normal 12.0-16.0 [facility] Comment on above: Performed By: #### P RO, ANEU, ADIFF, CBC, LIPID, A1C #### [address] [address] MCH (RBC) [Entitic mass] 30.2 pg Normal 27.0-33.0 [facility] Comment on above: Performed By: #### P RO, ANEU, ADIFF, CBC, LIPID, A1C #### [place] [address] MCHC 33.8 G/dL Normal 32.0-36.0 [facility] Comment on above: Performed By: #### P RO, ANEU, ADIFF, CBC, LIPID, A1C #### [place] [address] MCV (RBC) [Entitic vol] 89.4 fL Normal 80.0-99.0 [facility] Comment on above: Performed By: #### P RO, ANEU, ADIFF, CBC, LIPID, A1C #### [place] [address] Platelet 197 10 3/mcL Normal 150-450 [facility] Comment on above: Performed By: #### P RO, ANEU, ADIFF, CBC, LIPID, A1C #### [place] [address] Platelet mean volume (Bld) [Entitic vol] 9.8 fL Normal 6.6-10.5 [facility] Comment on above: Performed By: #### P RO, ANEU, ADIFF, CBC, LIPID, A1C #### [place] [address] RBC 4.05 10 6/mcL Low 4.10-5.30 [facility] Comment on above: Performed By: #### P RO, ANEU, ADIFF, CBC, LIPID, A1C #### [place] [address] WBC 5.4 10 3/mcL Normal 4.5-10.8 [facility] Comment on above: Performed By: #### P RO, ANEU, ADIFF, CBC, LIPID, A1C #### [place] [address] CDIFPCRon 08-21-2024 Clostridium difficile PCR Negative Normal Negative [facility] Comment on above: Performed By: #### Wilfrid BHAT CDIFPCR, [id number] #### [facility] [address] [place], [place] [address] #### STGIPCR #### [facility] [address] [place] [address] Clostridium difficile PCR Int Normal [facility] Comment on above: Result Comment: No t cdB gene DNA detected. Negative test results may occur from improper collection, handling or storage of specimen, technical error, or extremely low levels of target below the limit of detection of the assay. See Below Performed By: #### Wilfrid BHAT, CDIFPCR, [id number] #### [facility] [address] [place], [place] [address] #### STGIPCR #### [facility] [address] [place] [address] LABORATORYOrdered By: Harlan Arriaga on 08-21-2024 Adenovirus 40+41 DNA SEGUN+non-probe Ql (Stl) Not Detected *NA* (08/21/24 10:37 AM) Invalid Interpretation Code Not Detected AH Auto Microbiology GL SS Astrovirus subtypes 1-8 RNA SEGUN+non-probe Ql (Stl) Not Detected *NA* (08/21/24 10:37 AM) Invalid Interpretation Code Not Detected AH Auto Microbiology GL SS C. cayetanensis DNA SEGUN+non-probe Ql (Stl) Not Detected *NA* (08/21/24 10:37 AM) Invalid Interpretation Code Not Detected AH Auto Microbiology GL SS C. coli+jejuni+upsalie nsis DNA SEGUN+non-probe Ql (Stl) Not Detected *NA* (08/21/24 10:37 AM) Invalid Interpretation Code Not Detected AH Auto Microbiology GL SS Cryptosporidium sp DNA SEGUN+non-probe Ql (Stl) Not Detected *NA* (08/21/24 10:37 AM) Invalid Interpretation Code Not Detected AH Auto Microbiology GL SS E. coli enteroaggregative Gregory plasmid aggR+aatA genes SEGUN+non-probe Ql (Stl) Not Detected *NA* (08/21/24 10:37 AM) Invalid Interpretation Code Not Detected AH Auto Microbiology GL SS E. coli enteropathogenic eae gene SEGUN+non-probe Ql (Stl) Not Detected *NA* (08/21/24 10:37 AM) Invalid Interpretation Code Not Detected AH Auto Microbiology GL SS E. coli enterotoxigenic ltA+st1a+st1b genes SEGUN+non-probe Ql (Stl) Not Detected *NA* (08/21/24 10:37 AM) Invalid Interpretation Code Not Detected AH Auto Microbiology GL SS E. coli O157 DNA SEGUN+non-probe Ql (Stl) Not Applicable (08/21/24 10:37 AM) Normal Not Detected AH Auto Microbiology GL SS E. coli stx1+stx2 genes SEGUN+non-probe Ql (Stl) Not Detected *NA* (08/21/24 10:37 AM) Invalid Interpretation Code Not Detected AH Auto Microbiology GL SS E. histolytica DNA SEGUN+non-probe Ql (Stl) Not Detected *NA* (08/21/24 10:37 AM) Invalid Interpretation Code Not Detected AH Auto Microbiology GL SS G. lamblia DNA SEGUN+non-probe Ql (Stl) Not Detected *NA* (08/21/24 10:37 AM) Invalid Interpretation Code Not Detected AH Auto Microbiology GL SS Norovirus genogroup I+II RNA SEGUN+non-probe Ql (Stl) Not Detected *NA* (08/21/24 10:37 AM) Invalid Interpretation Code Not Detected AH Auto Microbiology GL SS Plesiomonas shigelloides Not Detected *NA* (08/21/24 10:37 AM) Invalid Interpretation Code Not Detected AH Auto Microbiology GL SS Rotavirus A RNA SEGUN+non-probe Ql (Stl) Not Detected *NA* (08/21/24 10:37 AM) Invalid Interpretation Code Not Detected AH Auto Microbiology GL SS S. enterica+bongori DNA SEGUN+non-probe Ql (Stl) Not Detected *NA* (08/21/24 10:37 AM) Invalid Interpretation Code Not Detected AH Auto Microbiology GL SS Sapovirus genogroups I+II+IV+V RNA SEGUN+non-probe Ql (Stl) Not Detected *NA* (08/21/24 10:37 AM) Invalid Interpretation Code Not Detected AH Auto Microbiology GL SS Shigella species+EIEC invasion plasmid antigen H ipaH gene SEGUN+non-probe Ql (Stl) Not Detected *NA* (08/21/24 10:37 AM) Invalid Interpretation Code Not Detected AH Auto Microbiology GL SS Stool GI Comment See Comment 1 (08/21/24 10:37 AM) Normal AH Auto Microbiology GL SS Comment on above: Interpretive Data: V irus, bacteria, and parasite nucleic acid may persist in vivo independently of organism viability. Negative Film Array GI panel results in the setting of clinical illness compatible with gastroenteritis may be due to infection by pathogens that are not detected by this test. False negatives may occur due to genetic variability in the region targeted by the primers. V. cholerae DNA SEGUN+non-probe Ql (Stl) Not Detected *NA* (08/21/24 10:37 AM) Invalid Interpretation Code Not Detected AH Auto Microbiology GL SS V. cholerae+parahaemol yticus+vulnificus DNA SEGUN+non-probe Ql (Stl) Not Detected *NA* (08/21/24 10:37 AM) Invalid Interpretation Code Not Detected AH Auto Microbiology GL SS Y. enterocolitica DNA SEGUN+non-probe Ql (Stl) Not Detected *NA* (08/21/24 10:37 AM) Invalid Interpretation Code Not Detected AH Auto Microbiology GL SS LABORATORYOrdered By: Kendell Galan on 08-21-2024 Clostridium difficile PCR Negative (08/21/24 10:37 AM) Normal Negative AO Auto Urine SS Clostridium difficile PCR Int No tcdB gene DNA detected. Negative test results may occur from improper collection, handling or storage of specimen, technical error, or extremely low levels of target below the limit of detection of the assay. Invalid Interpretation Code AO Auto Urine SS LABORATORYOrdered By: [email or web address] on 08-21-2024 Basophils (Bld) [#/Vol] 0.0 103/mcL Normal 0.0 - 0.2 10^3/mcL AO Workflow SS Basophils/100 WBC (Bld) 0.4 % Normal 0.0 - 2.5 % AO Workflow SS Eosinophil, Absolute 0.2 103/mcL Normal 0.0 - 0.7 10^3/mcL AO Workflow SS Eosinophils/100 WBC (Bld) 4.4 % Normal 0.0 - 7.0 % AO Workflow SS Erythrocyte distribution width (RBC) [Ratio] 14.9 % Normal 11.5 - 15.5 % AO Workflow SS Glucose [Mass/Vol] 126 mg/dL Invalid Interpretation Code AO Chemistry S Comment on above: Interpretive Data: E stimated average glucose (eAG) is a calculated value from Hemoglobin A1C and is small business sales representative of the average blood glucose level in the last 2-3 month period. Normal range: less than 114 mg/dL HbA1c (Bld) [Mass fraction] 6.0 % Normal 4.3 - 6.4 % AO ADM SS Hematocrit (Bld) [Volume fraction] 36.2 % Normal 34.0 - 46.0 % AO Workflow SS Hemoglobin (Bld) [Mass/Vol] 12.2 G/dL Normal 12.0 - 16.0 G/dL AO Workflow SS INR Coag (PPP) [Relative time] 1.0 {INR} Invalid Interpretation Code AO [facility] SS Comment on above: Interpretive Data: Charles rivas [employer] (CHEST, 1991, 102:312S-25S) recommended therapeutic range for oral anticoagulant therapy is: LOW RISK: Prophylaxis of venous thrombosis INR: 2.0-3.0 Treatment of pulmonary embolism 2.0-3.0 Prevention of systemic embolism 2.0-3.0 HIGH RISK: Mechanical prosthetic valves 2.5-3.5 Lymphocytes (Bld) [#/Vol] 1.8 103/mcL Normal 0.9 - 4.3 10^3/mcL AO Workflow SS Lymphocytes/100 WBC (Bld) 33.8 % Normal 20.0 - 40.0 % AO Workflow SS MCH (RBC) [Entitic mass] 30.2 pg Normal 27.0 - 33.0 pg AO Workflow SS MCHC 33.8 G/dL Normal 32.0 - 36.0 G/dL AO Workflow SS MCV (RBC) [Entitic vol] 89.4 fL Normal 80.0 - 99.0 fL AO Workflow SS Monocytes (Bld) [#/Vol] 0.5 103/mcL Normal 0.1 - 1.4 10^3/mcL AO Workflow SS Monocytes/100 WBC (Bld) 8.8 % Normal 2.0 - 13.0 % AO Workflow SS Neutrophils (Bld) [#/Vol] 2.8 103/mcL Normal 2.3 - 8.1 10^3/mcL AO Workflow SS Neutrophils/100 WBC (Bld) 52.6 % Normal 50.0 - 75.0 % AO Workflow SS Platelet mean volume (Bld) [Entitic vol] 9.8 fL Normal 6.6 - 10.5 fL AO Workflow SS Platelets (Bld) [#/Vol] 197 103/mcL Normal 150 - 450 10^3/mcL AO Workflow SS PT Coag (PPP) [Time] 11.9 s Normal 9.0 - 14.4 seconds AO HemoHub SS RBC (Bld) [#/Vol] 4.05 106/mcL Low 4.10 - 5.30 10^6/mcL AO Workflow SS WBC (Bld) [#/Vol] 5.4 103/mcL Normal 4.5 - 10.8 10^3/mcL AO Workflow SS LABORATORYOrdered By: Asael Linder on 08-21-2024 Cholesterol [Mass/Vol] 123 mg/dL Normal 0 - 200 mg/dL AO ADM SS Comment on above: Interpretive Data: C holesterol Reference Interval: Less than 200 Desirable 200-239 Borderline high risk 240 and above High risk Cholesterol in HDL [Mass/Vol] 59 mg/dL Normal 40 - 60 mg/dL AO ADM SS Cholesterol in LDL [Mass/Vol] 40 mg/dL Normal 0 - 130 mg/dL AO ADM SS Triglyceride [Mass/Vol] 122 mg/dL Normal 0 - 150 mg/dL AO ADM SS Comment on above: Interpretive Data: T riglyceride Reference Interval: Less than 150 Normal 150-199 Borderline high risk 200-499 High risk 500 or higher Very high risk LIPIDon 08-21-2024 Cholesterol [Mass/Vol] 123 mg/dL Normal 0-200 [facility] Comment on above: Result Comment: Chol esterol Reference Interval: Less than 200 Desirable 200-239 Borderline high risk 240 and above High risk Performed By: #### P RO, ANEU, ADIFF, CBC, LIPID, A1C #### [address] [address] Cholesterol in HDL [Mass/Vol] 59 mg/dL Normal 40-60 [facility] Comment on above: Performed By: #### P RO, ANEU, ADIFF, CBC, LIPID, A1C #### [address] [address] Cholesterol in LDL [Mass/Vol] 40 mg/dL Normal 0-130 [facility] Comment on above: Performed By: #### P RO, ANEU, ADIFF, CBC, LIPID, A1C #### [address] [address] Triglyceride [Mass/Vol] 122 mg/dL Normal 0-150 [facility] Comment on above: Result Comment: Trig lyceride Reference Interval: Less than 150 Normal 150-199 Borderline high risk 200-499 High risk 500 or higher Very high risk Performed By: #### P RO, ANEU, ADIFF, CBC, LIPID, A1C #### [address] [address] No Panel Informationon 08-21 Fecal Leukocytes Microscopy: Fecal Le ukocytes Absent From our data, approximately 50% of enteroinvasive bacterial pathogens will not be associated with stool WBC's. [facility] PROon 08-21-2024 PT Coag (PPP) [Time] 11.9 s Normal 9.0-14.4 [facility] Comment on above: Performed By: #### P RO, ANEU, ADIFF, CBC, LIPID, A1C #### [address] [address] PT International Ratio 1.0 Normal [facility] Comment on above: Result Comment: [employer] (CHEST, 1992, 102:312S-25S) recommended therapeutic range for oral anticoagulant therapy is: LOW RISK: Prophylaxis of venous thrombosis INR: 2.0-3.0 Treatment of pulmonary embolism 2.0-3.0 Prevention of systemic embolism 2.0-3.0 HIGH RISK: Mechanical prosthetic valves 2.5-3.5 Performed By: #### P RO, ANEU, ADIFF, CBC, LIPID, A1C #### [address] [address] STGIPCRon 08-21-2024 Adenovirus F 40/41 Not detected Normal Not Detected [facility] Comment on above: Performed By: #### Wilfrid BHAT CDIFPCR, [id number] #### [address] [address] #### STGIPCR #### [facility] [address] [place] [address] Astrovirus Not detected Normal Not Detected [facility] Comment on above: Performed By: #### Wilfrid BHAT CDIFPCR, [id number] #### [address] [address] #### STGIPCR #### [facility] [address] [place] [address] Campy (jejuni/coli/ups) Not detected Normal Not Detected [facility] Comment on above: Performed By: #### C HOME, CDIFPCR, [id number] #### [address] [address] #### STGIPCR #### [facility] [address] [place] [address] Cryptosporidium Not detected Normal Not Detected [facility] Comment on above: Performed By: #### Wilfrid BHAT, CDIFPCR, [id number] #### [address] [address] #### STGIPCR #### [facility] [address] [place] [address] Cyclospora Not detected Normal Not Detected [facility] Comment on above: Performed By: #### Wilfrid BHAT, CDIFPCR, 160113 #### [address] [address] #### STGIPCR #### [facility] [address] [place] [address] E. coli (ETEC) Not detected Normal Not Detected [facility] Comment on above: Performed By: #### Wilfrid BHAT, CDIFPCR, [id number] #### [address] [address] #### STGIPCR #### [facility] [address] [place] [address] E. coli O157 Not Applicable Normal Not Detected [facility] Comment on above: Performed By: #### Wilfrid BHAT, CDIFPCR, 160113 #### [address] [address] #### STGIPCR #### [facility] [address] [place] [address] Entamoeba histolytica Not detected Normal Not Detected [facility] Comment on above: Performed By: #### Wilfrid BHAT, CDIFPCR, 160113 #### [address] [address] #### STGIPCR #### [facility] [address] [place] [address] Enteroaggregative E. coli (EAEC) Not detected Normal Not Detected [facility] Comment on above: Performed By: #### Wilfrid BHAT, CDIFPCR, 569025 #### [address] [address] #### STGIPCR #### [facility] [address] [place] [address] Enteropathogenic E. coli (EPEC) Not detected Normal Not Detected [facility] Comment on above: Performed By: #### Wilfrid BHAT, CDIFPCR, 265652 #### [address] [address] #### STGIPCR #### [facility] [address] [place] [address] Giardia lamblia Not detected Normal Not Detected [facility] Comment on above: Performed By: #### Wilfrid BHAT, CDIFPCR, 911563 #### [address] [address] #### STGIPCR #### [facility] [address] [place] [address] Norovirus GI/GII Not detected Normal Not Detected [facility] Comment on above: Performed By: #### Wilfrid BHAT, CDIFPCR, 102196 #### [address] [address] #### STGIPCR #### [facility] [address] [place] [address] Plesiomonas shigelloides Not detected Normal Not Detected [facility] Comment on above: Performed By: #### Wilfrid BHAT, CDIFPCR, 159277 #### [address] [address] #### STGIPCR #### [facility] [address] [place] [address] Rotavirus A Not detected Normal Not Detected [facility] Comment on above: Performed By: #### Wilfrid BHAT, CDIFPCR, 247328 #### [address] [address] #### STGIPCR #### [facility] [address] [place] [address] Salmonella species, stool Not detected Normal Not Detected [facility] Comment on above: Performed By: #### C HOME, CDIFPCR, 160113 #### [address] [address] #### STGIPCR #### [facility] [address] [place] [address] Sapovirus I,II,IV,V Not detected Normal Not Detected [facility] Comment on above: Performed By: #### Wilfrid BHAT CDIFPCR, 160113 #### [place] [address] #### STGIPCR #### [facility] [address] [place] [address] Shig Tox E. coli (STEC) Not detected Normal Not Detected [facility] Comment on above: Performed By: #### Wilfrid BHAT, CDIFPCR, 160113 #### [place] [address] #### STGIPCR #### [place] [address] Shigella/Enteroinva sive E. coli (EIEC) Not detected Normal Not Detected [facility] Comment on above: Performed By: #### Wilfrid BHAT CDIFPCR, 160113 #### [place] [address] #### STGIPCR #### [facility] [address] [place] [address] Stool GI Comment See Comment Normal [facility] Comment on above: Result Comment: Viru s, bacteria, and parasite nucleic acid may persist in vivo independently of organism viability. Negative Film Array GI panel results in the setting of clinical illness compatible with gastroenteritis may be due to infection by pathogens that are not detected by this test. False negatives may occur due to genetic variability in the region targeted by the primers. Performed By: #### Wilfrid BHAT, CDIFPCR, 160113 #### [address] [address] #### STGIPCR #### [facility] [address] [place] [address] Vibrio cholerae Not detected Normal Not Detected [facility] Comment on above: Performed By: #### Wilfrid BHAT, CDIFPCR, 439146 #### [address] [address] #### STGIPCR #### [facility] [address] [place] [address] Vibrio par/vul/chol Not detected Normal Not Detected [facility] Comment on above: Performed By: #### Wilfrid BHAT, CDIFPCR, 185290 #### [place] [address] #### STGIPCR #### [place] [address] Yersinia enterocolitica Not detected Normal Not Detected [facility] Comment on above: Performed By: #### Wilfrid BHAT, CDIFPCR, 467809 #### [place] [address] #### STGIPCR #### [place] [address] Gastroenterology Visit Repor ton 08-19-2024 Gastroenterology Visit Report [facility] Gastroenterology [address] [place] [address] OFFICE VISIT Date of Service: 08/19/24 MR#: [id number] Acct: [id number] Name: LIAN DAMON Rep #: [id number] : 1960 Provider: Dr. Jose Maria ramos MD Age/Sex: 64/F Location: [facility] Status: Signed Intake Vital Signs 05/20/24 12:50 08/19/24 13:30 Height 5 ft 5 in 5 ft 5 in Weight: 260 lb 277 lb BMI 43.2 46.0 BP 123/77 H 171/80 H Blood Pressure Location Rt brachial Rt brachial Position Sitting Sitting Pulse 84 74 Pulse Oximetry (%) 96 92 Oxygen Delivery Method room air room air Intake Visit Reasons: 3 M FU Chief Complaint: 6 month FU Allergies codeine Allergy (Unknown, Verified 05/20/24 12:41) Unknown cortisone Allergy (Unknown, Verified 05/20/24 12:41) Unknown pregabalin (From Lyrica) Allergy (Unknown, Verified 05/20/24 12:41) Unknown [facility] Medical History Medication monitoring encounter Ambulates with cane Low iron History of edema History of irregular heartbeat Chest pain Long-term use of high-risk medication Polyarthralgia Small intestinal bacterial overgrowth Wears glasses Schizophrenia Alcohol use Thyroid disease Arthritis Anemia Easy bruising Back pain Injury of head and neck History of IBS Gastric reflux Non-smoker CPAP (continuous positive airway pressure) dependence Shortness of breath on exertion History of stress test Barretts esophagus COVID-19 vaccine series completed Intermittent claudication Carpal tunnel syndrome of right wrist Seasonal allergies History of migraine Irritable bowel syndrome (IBS) Hypertensive disorder Schizophrenia Hyperlipidemia Hypothyroid Surgical History History of tubal ligation History of colonoscopy History of esophagogastroduodenoscopy (EGD) History of cardiac cath History of tonsillectomy History of angioplasty Status post correction of deviated nasal septum Family History Sister Arthritis Hypertension Brother Arthritis Hypertension Mother Arthritis Hypertension Father Hypertension CVA (cerebral vascular accident) Uncle Hypertension Social History Smoking Status: Never smoker second hand exposure: No alcohol intake: current alcohol intake frequency: holidays/special occasions only substance use type: does not use caffeine: Yes what type of physical activity do you participate in: swimming and aerobics frequency: 1-2 times per week HPI HPI Chief Complaint: 6 month FU Details: LIAN DAMON, is a 64 F who presents to the office today for follow up. *BGI established 03.29.21 for Gonzalez???s esophagus surveillance and history of polyps. 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 EGD and colonoscopy .11.26. 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 Colonoscopy one TA polyp at hepatic flexure; two non-bleeding polyps in the colon. OV 10.19.21 with continues loose stools alternating with constipation and reflux with some emesis. OV 12.7.21 with symptom improvement of loose stools and constipation. Reflux continues to be an issue with small amounts of emesis. OV 2.1.22 with symptom improvement of loose stools and constipation. Reflux continues to be an issue with small amounts of emesis. US RUQ and elastography 2.9.22 liver measurement 20cm with fatty infiltration, stiffness 7.8kPa. Mild diffuse homogeneous hyperechogenicity of the pancreatic parenchyma with partial obscuration of pancreatic tail. Mild distention of gallbladder. OV 3.15.22 with ongoing reflux and improved loose stools alternating with constipation. OV 5.11.22 loose stools and constipation resolved. Continues with reflux when she lays down, sleep propped on pillows. Attempts to avoid dietary triggers. OV 7.29.22 Normal BM every 1-2 days with minimal loose stools. Continues to have reflux with bitter taste in mouth. Lifestyle changes, BRAT diet, elevate HOB. OV 10.31.22 with breakthrough reflux/heartburn and recent constipation. OV 2.3.23 Feels she is doing well overall. She has been having some intermittent hard BM which can excoriate hemorrhoids and cause bleeding. Continues to have daily reflux which she feels is improved since previously, OTC acid tripe washer is somewhat helpful. EGD 5..23 esophageal changes secondary to Gonzalez???s, metaplasia negative. OV 7..23- Reports that she is doing well. Denies any changes in symptoms. States that she still has some reflux but denies any dysphagia. States that she did have one bout of diarrhea recently but states that this was from eatin (more content not included)... [facility] ABD Limited w/ Elastographyo n 06-02-2024 ABD Limited w/ Elastography [facility] Imaging Services [address] [place] [address] ABD Limited w/ Elastography MR#: [id number] Acct: [id number] Name: LIAN DAMON Rep #: [id number] : 1960 F 64 From: Tariq stein MD PCP: Dr. Trneton Wilson, DO Status: DEP [facility] Study: ABD Limited w/ Elastography Date of Exam: 05/10 11/29 Exam# [id number] Ordering Dr: Jose Maria Barrientos MD :[id number] STUDY: ABDOMINAL ULTRASOUND - RIGHT UPPER QUADRANT; ELASTOGRAPHY REASON FOR VISIT: Female, 64 years old. Hepatic fibrosis. TECHNIQUE: Ultrasound evaluation of the right upper quadrant was performed with real-time and static giordano-scale imaging. Point quantification shear wave elastography was performed (Box[employer]). TECHNICAL QUALITY: Adequate. COMPARISON: Comparison is made with prior study dated September 03, 2023. FINDINGS: Liver: The liver is enlarged measures 19.3 cm. There is increased echogenicity consistent with fatty infiltration. The bile ducts are within normal limits. There is hepatic color flow. The direction of portal flow is hepatopetal. There is no demonstrated mass lesion. Median liver stiffness measured 6.1 kPa. Gallbladder: Normal distended gallbladder. The gallbladder wall measures 2.0 mm. There is a negative sonographic Fields''s sign. There is no pericholecystic fluid. There are no gallstones. Common Bile Duct (C.B.D.): The common bile duct measures 5.0 mm. Pancreas: There is increased echogenicity of the pancreas. There is no demonstrated pancreatic mass or cyst. Right Kidney: Normal size of the right kidney. The right kidney measures 12.3 cm x 5.8 cm x 5 cm. Normal renal cortex. The right cortex measures 1.5 cm. There is no demonstrated renal mass or cyst. There is no right hydronephrosis. IMPRESSION: 1. 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 Electronically Signed: Tariq Arnold MD at 11:05 EST , :[id number] STUDY: ABDOMINAL ULTRASOUND - LEFT UPPER QUADRANT REASON FOR EXAM: Female, 64 years old. MASLD, liver fibrosis -- including spleen TECHNIQUE: Transabdominal ultrasound was performed with real-time and static giordano scale imaging. TECHNICAL QUALITY: Adequate. COMPARISON: None. FINDINGS: Spleen: There is splenomegaly. The spleen measures 12.6 cm x 6.4 cm x 5.8 cm. US/ABD Limited w/ Elastography IMPRESSION: Mild splenomegaly. Electronically Signed: Tariq Arnold MD at 11:07 EST , CC: Dr. Trenton Wilson DO; Dr. Jose Maria Barrientos MD Bevel Operator: Signed [facility] Gastroenterology Visit Repor ton 05-20-2024 Gastroenterology Visit Report [facility]enter[facility] [address] [facility] [address] OFFICE VISIT Date of Service: 05/20/24 MR#: [id number] Acct: [id number] Name: LIAN DAMON Rep #: [id number] : 1960 Provider: Dr. Jose Maria ramos MD Age/Sex: 64/F Location: [facility] Status: Signed Intake Vital Signs 11/14/23 13:04 04/15/24 08:47 05/20/24 12:50 Height 5 ft 5 in 5 ft 5 in 5 ft 5 in Weight: 290 lb 280 lb 260 lb BMI 48.2 46.5 43.2 BP 164/91 H 126/76 H 123/77 H Blood Pressure Location Rt brachial Lt brachial Rt brachial Position Sitting Sitting Sitting Respiration 16 Pulse 65 84 84 Pulse Source Palpation Temp 99.3 F H Temp Source Temporal Pulse Oximetry (%) 94 96 Oxygen Delivery Method room air room air Intake Visit Reasons: 6 M FU Chief Complaint: 6 month FU Allergies codeine Allergy (Unknown, Verified 05/20/24 12:41) Unknown cortisone Allergy (Unknown, Verified 05/20/24 12:41) Unknown pregabalin (From Lyrica) Allergy (Unknown, Verified 05/20/24 12:41) Unknown Medications ???Medication ???Instructions ???Recorded ???Confirmed ???Type fluticasone propionate 50 2 spray intranasal QDAY seasonal 12/27/17 05/20/24 History mcg/actuation nasal allergies spray,suspension (Flonase Allergy Relief) CPAP equiptment and supplies #1 ea 04/29/21 05/20/24 Rx aspirin 81 mg capsule 81 mg PO DAILY 05/12/21 05/20/24 History lactobacillus combination no.9 4 4,000 mmu cells PO DAILY 05/12/21 05/20/24 History billion cell capsule (Adult 50 Plus Probiotic) omeprazole 40 mg capsule,delayed 40 mg PO QDAY #90 caps 03/24/24 05/20/24 Rx release atorvastatin 20 mg tablet 20 mg PO QHS #90 tabs 04/08/24 05/20/24 Rx levothyroxine 200 mcg tablet 200 mcg PO DAILY #90 tabs 04/09/24 05/20/24 Rx lisinopril 20 mg tablet 20 mg PO DAILY #90 tabs 04/09/24 05/20/24 Rx meloxicam 7.5 mg tablet See Rx Instructions .Route 04/09/24 05/20/24 Rx .COMPLEX #90 tabs metformin 500 mg tablet 500 mg PO BID 90 days #180 tabs 04/10/24 05/20/24 Rx quetiapine 400 mg tablet See Rx Instructions .Route 04/15/24 05/20/24 Rx .COMPLEX #90 tabs sertraline 100 mg tablet See Rx Instructions .Route 04/15/24 05/20/24 Rx .COMPLEX #180 tabs ursodiol 250 mg tablet See Rx Instructions .Route 04/15/24 05/20/24 Rx .COMPLEX #200 tabs [facility] Medical History Medication monitoring encounter Ambulates with cane Low iron History of edema History of irregular heartbeat Chest pain Long-term use of high-risk medication Polyarthralgia Small intestinal bacterial overgrowth Wears glasses Schizophrenia Alcohol use Thyroid disease Arthritis Anemia Easy bruising Back pain Injury of head and neck History of IBS Gastric reflux Non-smoker CPAP (continuous positive airway pressure) dependence Shortness of breath on exertion History of stress test Barretts esophagus COVID-19 vaccine series completed Intermittent claudication Carpal tunnel syndrome of right wrist Seasonal allergies History of migraine Irritable bowel syndrome (IBS) Hypertensive disorder Schizophrenia Hyperlipidemia Hypothyroid Surgical History History of tubal ligation History of colonoscopy History of esophagogastroduodenoscopy (EGD) History of cardiac cath History of tonsillectomy History of angioplasty Status post correction of deviated nasal septum Family History Sister Arthritis Hypertension Brother Arthritis Hypertension Mother Arthritis Hypertension Father Hypertension CVA (cerebral vascular accident) Uncle Hypertension Social History Smoking Status: Never smoker second hand exposure: No alcohol intake: current alcohol intake frequency: holidays/special occasions only substance use type: does not use caffeine: Yes what type of physical activity do you participate in: swimming and aerobics frequency: 1-2 times per week HPI HPI Chief Complaint: 6 month FU Details: LIAN DAMON, is a 64 F who presents to the office today for follow up. *BGI established 03.29.21 for Gonzalez???s esophagus surveillance and history of polyps. 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 EGD and colonoscopy ... 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 Colonoscopy one TA polyp at hepatic flexure; two non-bleeding polyps in the colon. OV 10..21 with continues loose stools alternating with constipation and reflux with some emesis. OV 12..21 with symptom improvement of loose stools and constipation. Reflux continues to be an (more content not included)... [facility] Office Vis iton 04-15-2024 Internal Medicine Office Visit [facility] [address] [place], [place] [address] OFFICE VISIT Date of Service: 04/15/24 MR#: [id number] Acct: [id number] Name: LIAN DAMON Rep #: [id number] : 1960 Provider: Dr. Trenton Matute Br own, DO Age/Sex: 64/F Location: [facility] Status: Signed Intake Vital Signs 10/09/23 09:31 11/14/23 13:04 04/15/24 08:47 Height 5 ft 5 in 5 ft 5 in 5 ft 5 in Weight: 287 lb 290 lb 280 lb BMI 47.7 48.2 46.5 BP 150/82 H 164/91 H 126/76 H Blood Pressure Location Lt brachial Rt brachial Lt brachial Position Sitting Sitting Sitting Respiration 16 16 Pulse 75 65 84 Pulse Source Monitor Palpation Temp 97.5 F L 99.3 F H Temp Source Temporal Temporal Pulse Oximetry (%) 92 94 Oxygen Delivery Method room air room air Intake Visit Reasons: 6 M FU Chief Complaint: 6 month FU 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: No Accompanied by: Self Is patient in pain?: No Allergies codeine Allergy (Unknown, Verified 04/15/24 08:44) Unknown cortisone Allergy (Unknown, Verified 04/15/24 08:44) Unknown pregabalin (From Lyrica) Allergy (Unknown, Verified 04/15/24 08:44) Unknown Medications ???Medication ???Instructions ???Recorded ???Confirmed ???Type fluticasone propionate 50 2 spray intranasal QDAY seasonal 12/27/17 04/15/24 History mcg/actuation nasal allergies spray,suspension (Flonase Allergy Relief) CPAP equiptment and supplies #1 ea 04/29/21 04/15/24 Rx aspirin 81 mg capsule 81 mg PO DAILY 05/12/21 04/15/24 History lactobacillus combination no.9 4 4,000 mmu cells PO DAILY 05/12/21 04/15/24 History billion cell capsule (Adult 50 Plus Probiotic) omeprazole 40 mg capsule,delayed 40 mg PO QDAY #90 caps 03/24/24 04/15/24 Rx release atorvastatin 20 mg tablet 20 mg PO QHS #90 tabs 04/08/24 04/15/24 Rx levothyroxine 200 mcg tablet 200 mcg PO DAILY #90 tabs 04/09/24 04/15/24 Rx lisinopril 20 mg tablet 20 mg PO DAILY #90 tabs 04/09/24 04/15/24 Rx meloxicam 7.5 mg tablet See Rx Instructions .Route 04/09/24 04/15/24 Rx .COMPLEX #90 tabs metformin 500 mg tablet 500 mg PO BID 90 days #180 tabs 04/10/24 04/15/24 Rx quetiapine 400 mg tablet See Rx Instructions .Route 04/15/24 04/15/24 Rx .COMPLEX #90 tabs sertraline 100 mg tablet See Rx Instructions .Route 04/15/24 04/15/24 Rx .COMPLEX #180 tabs ursodiol 250 mg tablet See Rx Instructions .Route 04/15/24 04/15/24 Rx .COMPLEX #200 tabs PFSH Medical History Medication monitoring encounter Ambulates with cane Low iron History of edema History of irregular heartbeat Chest pain Long-term use of high-risk medication Polyarthralgia Small intestinal bacterial overgrowth Wears glasses Schizophrenia Alcohol use Thyroid disease Arthritis Anemia Easy bruising Back pain Injury of head and neck History of IBS Gastric reflux Non-smoker CPAP (continuous positive airway pressure) dependence Shortness of breath on exertion History of stress test Barretts esophagus COVID-19 vaccine series completed Intermittent claudication Carpal tunnel syndrome of right wrist Seasonal allergies History of migraine Irritable bowel syndrome (IBS) Hypertensive disorder Schizophrenia Hyperlipidemia Hypothyroid Surgical History History of tubal ligation History of colonoscopy History of esophagogastroduodenoscopy (EGD) History of cardiac cath History of tonsillectomy History of angioplasty Status post correction of deviated nasal septum Family History Sister Arthritis Hypertension Brother Arthritis Hypertension Mother Arthritis Hypertension Father Hypertension CVA (cerebral vascular accident) Uncle Hypertension Social History Smoking Status: Never smoker second hand exposure: No alcohol intake: current alcohol intake frequency: holidays/special occasions only substance use type: does not use caffeine: Yes what type of physical activity do you participate in: swimming and aerobics frequency: 1-2 times per week HPI HPI Chief Complaint: 6 month FU Details: LIAN DAMON, is a 64 F who presents to the office today for a six month follow up. She has had lots of liquid stool. However she has no incontinence of stool. Looking back at her chart it seems the loose stool started when she was placed on ursodiol, which is a rather expected side effect of that medication. Her back pain is about the same her tremor does not seem to bother her a lot although little when she is crocheting sometimes it gets in the way. She does not appear depressed and actively talks about her granddaughter and her accomplishments in school. (more content not included)... Normal [facility] .Auto Diffon 09-22-2022 Basophil, Absolute 0.0 10 3/mcL Normal 0.0-0.2 [facility] ([place]) Comment on above: Performed By: #### A NEIDA ORTA, GFR, ANEU, TROPHS, CBC, BMP #### [address] [address] Basophils/100 WBC (Bld) 0.4 % Normal 0.0-2.5 [facility] ([place]) Comment on above: Performed By: #### A NEIDA ORTA, GFR, ANEU, TROPHS, CBC, BMP #### [address] [address] Eosinophil, Absolute 0.2 10 3/mcL Normal 0.0-0.4 [facility] ([place]) Comment on above: Performed By: #### A NEIDA ORTA, GFR, ANEU, TROPHS, CBC, BMP #### [address] [address] Eosinophils/100 WBC (Bld) 3.1 % Normal 0.0-7.0 [facility] ([place]) Comment on above: Performed By: #### A DIFFNEIDA, GFR, ANEU, TROPHS, CBC, BMP #### [address] [address] Lymphocyte, Absolute 2.2 10 3/mcL Normal 0.8-3.9 [facility] ([place]) Comment on above: Performed By: #### A DIFF, MDW, GFR, ANEU, TROPHS, CBC, BMP #### [address] [address] Lymphocytes/100 WBC (Bld) 36.2 % Normal 10.0-50.0 [facility] ([place]) Comment on above: Performed By: #### A DIFF, MDW, GFR, ANEU, TROPHS, CBC, BMP #### [address] [address] Monocyte, Absolute 0.6 10 3/mcL Normal 0.2-1.0 [facility] ([place]) Comment on above: Performed By: #### A DIFF, MDW, GFR, ANEU, TROPHS, CBC, BMP #### [address] [address] Monocytes/100 WBC (Bld) 10.1 % Normal 1.7-13.0 [facility] ([place]) Comment on above: Performed By: #### A DIFF, MDW, GFR, ANEU, TROPHS, CBC, BMP #### [address] [address] Neutrophils/100 WBC (Bld) 50.2 % Normal 37.0-80.0 [facility] ([place]) Comment on above: Performed By: #### A DIFF, MDW, GFR, ANEU, TROPHS, CBC, BMP #### [address] [address] .GFRon 09-22-2022 GFR 70 ml/min/1.73sqm Normal [facility] ([place]) Comment on above: Result Comment: GFR Population mean for , Non- Americans Ages 20-29 = 116 mL/min/1.73 sq.m. Ages 30-39 = 107 mL/min/1.73 sq.m. Ages 40-49 = 99 mL/min/1.73 sq.m. Ages 50-59 = 93 mL/min/1.73 sq.m. Ages 60-69 = 85 mL/min/1.73 sq.m. Ages 70+ = 75 mL/min/1.73 sq.m. Chronic Kidney Disease: Less than 60 mL/min/1.73 square meters End Stage Renal Disease: Less than 15 mL/min/1.73 square meters Performed By: #### A DIFF, MDW, GFR, ANEU, TROPHS, CBC, BMP #### [address] [address] GFR Non- 58 ml/min/1.73sqm Normal [facility] ([place]) Comment on above: Result Comment: GFR Population mean for , Non- Americans Ages 20-29 = 116 mL/min/1.73 sq.m. Ages 30-39 = 107 mL/min/1.73 sq.m. Ages 40-49 = 99 mL/min/1.73 sq.m. Ages 50-59 = 93 mL/min/1.73 sq.m. Ages 60-69 = 85 mL/min/1.73 sq.m. Ages 70+ = 75 mL/min/1.73 sq.m. Chronic Kidney Disease: Less than 60 mL/min/1.73 square meters End Stage Renal Disease: Less than 15 mL/min/1.73 square meters Performed By: #### A DIFF, MDW, GFR, ANEU, TROPHS, CBC, BMP #### [address] [address] .MDWon 09-22-2022 Monocyte Distribution Width 16.33 Normal 0.00-20.00 [facility] ([place]) Comment on above: Result Comment: For ED adult patients suspected of sepsis, MDW<=20.0 does not rule out sepsis or risk of sepsis Performed By: #### A DIFF, MDW, GFR, ANEU, TROPHS, CBC, BMP #### [address] [address] .NEUABSon 09-22-2022 Neutrophil, Absolute 3.0 10 3/mcL Normal 2.9-6.2 [facility] ([place]) Comment on above: Performed By: #### A DIFF, MDW, GFR, ANEU, TROPHS, CBC, BMP #### [address] [address] BMPon 09-22-2022 BUN/Creatinine Ratio 13 ratio Normal 7-27 [facility] ([place]) Comment on above: Performed By: #### A NEIDA ORTA, GFR, ANEU, TROPHS, CBC, BMP #### [address] [address] Calcium [Mass/Vol] 9.0 mg/dL Normal 8.4-10.2 [facility] ([place]) Comment on above: Performed By: #### A DIFFNEIDA, GFR, ANEU, TROPHS, CBC, BMP #### [address] [address] Chloride [Moles/Vol] 100 mmol/L Normal 98-107 [facility] ([place]) Comment on above: Performed By: #### A NEIDA ORTA, GFR, ANEU, TROPHS, CBC, BMP #### [place] [address] CO2 [Moles/Vol] 30 mmol/L Normal 23-31 [facility] ([place]) Comment on above: Performed By: #### A NEIDA ORTA, GFR, ANEU, TROPHS, CBC, BMP #### [place] [address] Creatinine [Mass/Vol] 0.98 mg/dL Normal 0.55-1.02 [facility] ([place]) Comment on above: Performed By: #### A NEIDA ORTA, GFR, ANEU, TROPHS, CBC, BMP #### [address] [address] Electrolyte Balance 9.0 mEq/L Normal 4.0-15.0 [facility] ([place]) Comment on above: Performed By: #### A NEIDA ORTA, GFR, ANEU, TROPHS, CBC, BMP #### [place] [id number] Glucose [Mass/Vol] 107 mg/dL Normal 80-115 [facility] ([place]) Comment on above: Performed By: #### A NEIDA ORTA, GFR, ANEU, TROPHS, CBC, BMP #### [address] [address] Potassium [Moles/Vol] 3.9 mmol/L Normal 3.5-5.1 [facility] ([place]) Comment on above: Performed By: #### A DIFF, MDW, GFR, ANEU, TROPHS, CBC, BMP #### [address] [address] Sodium [Moles/Vol] 139 mmol/L Normal 136-145 [facility] ([place]) Comment on above: Performed By: #### A DIFF, MDW, GFR, ANEU, TROPHS, CBC, BMP #### [place] [id number] Urea nitrogen [Mass/Vol] 13 mg/dL Normal 7-18 [facility] ([place]) Comment on above: Performed By: #### A DIFF, W, GFR, ANEU, TROPHS, CBC, BMP #### [place] [id number] CBCon 09-22-2022 Erythrocyte distribution width (RBC) [Ratio] 14.8 % High 11.5-14.5 [facility] ([place]) Comment on above: Performed By: #### A MD YOUW, GFR, ANEU, TROPHS, CBC, BMP #### [address] [address] Hematocrit (Bld) [Volume fraction] 37.5 % Normal 37.0-47.0 [facility] ([place]) Comment on above: Performed By: #### A DIFF, MDW, GFR, ANEU, TROPHS, CBC, BMP #### [address] [address] Hgb 12.6 G/dL Normal 12.0-16.0 [facility] ([place]) Comment on above: Performed By: #### A DIFF, MDW, GFR, ANEU, TROPHS, CBC, BMP #### [address] [address] MCH (RBC) [Entitic mass] 30.1 pg Normal 27.0-31.2 [facility] ([place]) Comment on above: Performed By: #### A DIFFNEIDA, GFR, ANEU, TROPHS, CBC, BMP #### [address] [address] MCHC 33.7 G/dL Normal 33.0-37.0 [facility] ([place]) Comment on above: Performed By: #### A DIFF, MDW, GFR, ANEU, TROPHS, CBC, BMP #### [address] [address] MCV (RBC) [Entitic vol] 89.2 fL Normal 80.0-94.0 [facility] ([place]) Comment on above: Performed By: #### A DIFF, NEIDA, GFR, ANEU, TROPHS, CBC, BMP #### [address] [address] Platelet 201 10 3/mcL Normal 130-400 [facility] ([place]) Comment on above: Performed By: #### A DIFFNEIDA, GFR, ANEU, TROPHS, CBC, BMP #### [address] [address] Platelet mean volume (Bld) [Entitic vol] 9.4 fL Normal 7.4-10.4 [facility] ([place]) Comment on above: Performed By: #### A DIFFNEIDA, GFR, ANEU, TROPHS, CBC, BMP #### [address] [address] RBC 4.20 10 6/mcL Normal 4.20-5.40 [facility] ([place]) Comment on above: Performed By: #### A DIFF, W, GFR, ANEU, TROPHS, CBC, BMP #### [address] [address] WBC 6.1 10 3/mcL Normal 4.6-10.8 [facility] ([place]) Comment on above: Performed By: #### A DIFF, W, GFR, ANEU, TROPHS, CBC, BMP #### [address] [address] [address] ANGIOGRAPHY CHEST W/CONTR [place] 09-22-2022 CT ANGIOGRAPHY CHEST W/CONTRAST ORIGINAL EXAMINATION: CTA OF THE CHEST 09/22/2022 [...] for Exam: chest pain; suspect PE FINDINGS: Feby-tn-[id number] degenerative changes are noted in the spine. [...] Sign Date: 09/22/2022 4:12:03 PM Ordering Provider: BROOKE SANCHEZ [facility] ([place]) DIMERon 09-22-2022 D-Dimer 484 ng/mL D-DU High 0-230 [facility] ([place]) Comment on above: Result Comment: The result of the D-Dimer test should be evaluated in the context of all the clinical and laboratory data available. In those instances where the laboratory result does not agree with the clinical evaluation, additional tests should be performed accordingly. If the D-Dimer result is used to exclude DVT or PE, the recommended cutoff value is less than 230 ng/mL. The D-Dimer result should not be used alone to rule in DVT/PE, but should be used in conjunction with a clinical pretest probability (PTP)assessment model to exclude venous thromboembolism (VTE) in outpatients suspected of deep venous thrombosis (DVT) and pulmonary embolism (PE). Performed By: #### A DIFF, MDW, GFR, ANEU, TROPHS, CBC, BMP #### [address] [address] LABORATORYOrdered By: Corinne Bolden on 09-22-2022 Basophil, Absolute 0.0 103/mcL Invalid Interpretation Code 0.0 - 0.2 10^3/mcL AO Workflow SS Basophils/100 WBC (Bld) 0.4 % Invalid Interpretation Code 0.0 - 2.5 % AO Workflow SS Eosinophil, Absolute 0.2 103/mcL Invalid Interpretation Code 0.0 - 0.4 10^3/mcL AO Workflow SS Eosinophils/100 WBC (Bld) 3.1 % Invalid Interpretation Code 0.0 - 7.0 % AO Workflow SS Erythrocyte distribution width (RBC) [Ratio] 14.8 % Invalid Interpretation Code 11.5 - 14.5 % AO Workflow SS Hematocrit (Bld) [Volume fraction] 37.5 % Invalid Interpretation Code 37.0 - 47.0 % AO Workflow SS Hemoglobin (Bld) [Mass/Vol] 12.6 G/dL Invalid Interpretation Code 12.0 - 16.0 G/dL AO Workflow SS Lymphocyte, Absolute 2.2 103/mcL Invalid Interpretation Code 0.8 - 3.9 10^3/mcL AO Workflow SS Lymphocytes/100 WBC (Bld) 36.2 % Invalid Interpretation Code 10.0 - 50.0 % AO Workflow SS MCH (RBC) [Entitic mass] 30.1 pg Invalid Interpretation Code 27.0 - 31.2 pg AO Workflow SS MCHC 33.7 G/dL Invalid Interpretation Code 33.0 - 37.0 G/dL AO Workflow SS MCV (RBC) [Entitic vol] 89.2 fL Invalid Interpretation Code 80.0 - 94.0 fL AO Workflow SS Monocyte distribution width Auto (Bld) [Entitic vol] 16.33 Invalid Interpretation Code 0.00 - 20.00 AO Workflow SS Comment on above: Result Comment: For ED adult patients suspected of sepsis, MDW<=20.0 does not rule out sepsis or risk of sepsis Monocyte, Absolute 0.6 103/mcL Invalid Interpretation Code 0.2 - 1.0 10^3/mcL AO Workflow SS Monocytes/100 WBC (Bld) 10.1 % Invalid Interpretation Code 1.7 - 13.0 % AO Workflow SS Neutrophil, Absolute 3.0 103/mcL Invalid Interpretation Code 2.9 - 6.2 10^3/mcL AO Workflow SS Neutrophils/100 WBC (Bld) 50.2 % Invalid Interpretation Code 37.0 - 80.0 % AO Workflow SS Platelet mean volume (Bld) [Entitic vol] 9.4 fL Invalid Interpretation Code 7.4 - 10.4 fL AO Workflow SS Platelets (Bld) [#/Vol] 201 103/mcL Invalid Interpretation Code 130 - 400 10^3/mcL AO Workflow SS RBC (Bld) [#/Vol] 4.20 106/mcL Invalid Interpretation Code 4.20 - 5.40 10^6/mcL AO Workflow SS WBC (Bld) [#/Vol] 6.1 103/mcL Invalid Interpretation Code 4.6 - 10.8 10^3/mcL AO Workflow SS LABORATORYOrdered By: SYSTEM SYSTEM on 09-22-2022 Calcium [Mass/Vol] 9.0 mg/dL Invalid Interpretation Code 8.4 - 10.2 mg/dL AO ADM SS Chloride [Moles/Vol] 100 mmol/L Invalid Interpretation Code 98 - 107 mmol/L AO ADM SS CO2 [Moles/Vol] 30 mmol/L Invalid Interpretation Code 23 - 31 mmol/L AO ADM SS Creatinine [Mass/Vol] 0.98 mg/dL Invalid Interpretation Code 0.55 - 1.02 mg/dL AO ADM SS Electrolyte Balance 9.0 mEq/L Invalid Interpretation Code 4.0 - 15.0 mEq/L AO ADM SS GFR 70 ml/min/1.73sqm Invalid Interpretation Code AO Chemistry S GFR Non- 58 ml/min/1.73sqm Invalid Interpretation Code AO Chemistry S Glucose [Mass/Vol] 107 mg/dL Invalid Interpretation Code 80 - 115 mg/dL AO ADM SS Potassium [Moles/Vol] 3.9 mmol/L Invalid Interpretation Code 3.5 - 5.1 mmol/L AO ADM SS Sodium [Moles/Vol] 139 mmol/L Invalid Interpretation Code 136 - 145 mmol/L AO ADM SS Troponin I.cardiac DL <= 0.01 ng/mL [Mass/Vol] 6.3 ng/L Invalid Interpretation Code 0.0 - 51.4 ng/L AO ADM SS Urea nitrogen [Mass/Vol] 13 mg/dL Invalid Interpretation Code 7 - 18 mg/dL AO ADM SS Urea nitrogen/Creatinine [Mass ratio] 13 ratio Invalid Interpretation Code 7 - 27 ratio AO ADM SS LABORATORYOrdered By: Asael Linder on 09-22-2022 Fibrin D-dimer DDU (PPP) [Mass/Vol] 484 ng/mL D-DU Invalid Interpretation Code 0 - 230 ng/mL D-DU AO HemoHub SS TROPHSon 09-22-2022 Troponin I High Sensitivity 6.3 ng/L Normal 0.0-51.4 [facility] ([place]) Comment on above: Performed By: #### A DIFF, MDW, GFR, ANEU, TROPHS, CBC, BMP ####[facility] [place], [place] [address] XR CHEST 1 VIEWon 09-22-2022 XR CHEST 1 VIEW ORIGINAL EXAMINATION: ONE XRAY VIEW OF THE [...] Sign Date: 09/22/2022 2:52:51 PM Ordering Provider: BROOKE SANCHEZ [facility] ([place]) XR FINGER THUMB 3 VIEWS LEFT on 05-19-2022 XR FINGER THUMB 3 VIEWS LEFT ORIGINAL EXAMINATION: THREE XRAY VIEWS OF THE LEFT THUMB05/16/2022 3:58 pm THUMB LEFT COMPARISON: None HISTORY: ORDERING SYSTEM PROVIDED HISTORY: Reason for Exam: left thumb pain FINDINGS: No acute fracture or dislocation is identified. Prominent spur is noted along the radial side of the interphalangeal joint of the 1st digit. Is some joint space loss at the 1st metacarpophalangeal joint. Hypertrophic spurring seen at the 1st carpometacarpal joint.. There is no radiopaque foreign body. IMPRESSION: Degenerative changes. No acute osseous abnormality Interpreted by: Samir Reyes MD Preliminary Report By: Samir Reyes MD Electronically signed By Samir Reyes MD Dictated Date: 05/19/2022 9:22:24 AM Prelim Date: 05/19/2022 9:23:11 AM Sign Date: 05/19/2022 9:23:11 AM Ordering Provider: TORREY FOUNTAIN [facility] ([place]) Erythrocyte sedimentation ra willa 05-16-2022 ESR (Bld) [Velocity] 9 mm/h 0-30 [facility] Work Phone: Serum or plasma C reactive p rotein measurement (mass/volume)on 05-16-2022 CRP [Mass/Vol] mg/L 0.0-3.0 [facility] Work Phone: Comment on above: C-Reactive Protein ( CRP) provides useful information for thediagnosis, therapy and monitoring of inflammatory processesand associated diseases. For the evaluation of Relative Riskfor Cardiovascular Disease, a High Sensitivity CRP (HSCRP)should be ordered. Serum rheumatoid factor dete ctionon 05-16-2022 Rheumatoid factor Ql (S) < 10.0 IU/mL <15 [facility] Work Phone: Erythrocyte sedimentation ra willa 05-05-2022 ESR (Bld) [Velocity] 7 mm/h 0-30 [facility] Work Phone: Serum or plasma C reactive p rotein measurement (mass/volume)on 05-05-2022 CRP [Mass/Vol] mg/L 0.0-3.0 [facility] Work Phone: Comment on above: C-Reactive Protein ( CRP) provides useful information for thediagnosis, therapy and monitoring of inflammatory processesand associated diseases. For the evaluation of Relative Riskfor Cardiovascular Disease, a High Sensitivity CRP (HSCRP)should be ordered. Serum or plasma uric acid me asurement (mass/volume)on 05-05-2022 Urate [Mass/Vol] 4.2 mg/dL 2.6-6.0 [facility] Work Phone: Comment on above: The drugs N-Acetylcy steine and Metamizole may falsely depress this assay. Basophil percentageon 2021 Bilirubin [Mass/Vol] 0.40 mg/dL 0.20-1.00 [facility] Work Phone: Comment on above: For patients on eltr ombopag therapy, use of Dimension [place] TBIL is not recommended. Chloride [Moles/Vol] 106 mmol/L 98-107 [facility] Work Phone: Cholesterol [Mass/Vol] 212 mg/dL <200 [facility] Work Phone: Comment on above: <200 mg/dL Desirable 200-240 mg/dL Borderline >240 mg/dL High Risk Glucose [Mass/Vol] 101 mg/dL 74-106 [facility] Work Phone: Comment on above: Fasting Glucose resu lt from 100 to 125 mg/dL suggests IMPAIRED HOMEOSTASIS per A.D.A. criteria. Potassium [Moles/Vol] 4.5 mmol/L 3.5-5.1 [facility] Work Phone: Protein [Mass/Vol] 7.9 g/dL 6.4-8.2 [facility] Work Phone: Sodium [Moles/Vol] 141 mmol/L 136-145 [facility] Work Phone: Triglyceride [Mass/Vol] 192 mg/dL <199 [facility] Work Phone: Comment on above: The drugs N-Acetylcy steine and Metamizole may falsely depress this assay.Serum Triglycerides Reference Interval Normal <150 mg/dL Borderline high 150 - 199 mg/dL High 200 - 499 mg/dL Very High > or = 500 mg/dL Laboratory - Chemistry and C hemistry - challengeon 03-22-2022 ALP [Catalytic activity/Vol] 70 U/L 45-117 [facility] Work Phone: ALT [Catalytic activity/Vol] 40 U/L 13-56 [facility] Work Phone: CO2 [Moles/Vol] 30.0 mmol/L 21.0-32.0 [facility] Work Phone: Globulin (S) [Mass/Vol] 4.1 g/dL 2.2-4.2 [facility] Work Phone: Urea nitrogen/Creatinine [Mass ratio] 13.1 mg/mg 10-20 [facility] Work Phone: No Panel Informationon 03-22 Estimated GFR (MDRD) Amer 89 mL/min >60 [facility] Work Phone: Comment on above: GFR Calc Estimated GFR (MDRD) Non-Af Amer 74 mL/min >60 [facility] Work Phone: Comment on above: Non- GFR Calc Serum or plasma albumin muna urement (mass/volume)on 03-22-2022 Albumin [Mass/Vol] 3.8 g/dL 3.2-5.0 [facility] Work Phone: Serum or plasma albumin/glob ulin mass ratioon 03-22-2022 Albumin/Globulin [Mass ratio] 0.9 {ratio} 0.9-2.4 [facility] Work Phone: Serum or plasma calcium muna urement (mass/volume)on 03-22-2022 Calcium [Mass/Vol] 9.3 mg/dL 8.5-10.1 [facility] Work Phone: Serum or plasma cholesterol in HDL measurement (mass/volume)on 03-22-2022 Cholesterol in HDL [Mass/Vol] 52 mg/dL >40 [facility] Work Phone: Comment on above: The drugs N-Acetylcy steine and Metamizole may falsely depress this assay. Reference Range HDL <40 mg/dL Low HDL Cholesterol HDL >or= 60 mg/dL High HDL Cholesterol Serum or plasma cholesterol in VLDL measurement (mass/volume)on 03-22-2022 Cholesterol in VLDL [Mass/Vol] 38 mg/dL 5-40 [facility] Work Phone: Serum or plasma creatinine m easurement (mass/volume)on 03-22-2022 Creatinine [Mass/Vol] 0.84 mg/dL 0.55-1.02 [facility] Work Phone: Comment on above: The validity of the calculated GFR & GFRAA in patients over 70 years has not been determined. Clinical correlation is essential. Serum or plasma low density lipoprotein (LDL) cholesterol measurement (mass/volume)on 03-22-2022 Cholesterol in LDL [Mass/Vol] 122 mg/dL 0-130 [facility] Work Phone: Serum or plasma urea nitroge n measurement (mass/volume)on 03-22-2022 Urea nitrogen [Mass/Vol] 11 mg/dL 7-18 [facility] Work Phone: Thin prep Papanicolaou smear with manual screeningon 03-22-2022 Thin prep Papanicolaou smear with manual screening 24 U/L 15-37 [facility] Work Phone: Thin prep Papanicolaou smear with manual screening 5 5-15 [facility] Work Phone: Clinical Summary: HMSPatient IDon 01-22-2019 [facility] Work Phone: Office Visit: Postop - 1st v isit, Rm: 6on 01-22-2019 NEGATED: Highlighted rowxray history of the lumbar spine on 08/01/2018 at [facility] Work Phone: Vital Signs Date Time Vital Sign Value Performing Clinician Facility 09-22-2022 17:13-0400 Diastolic Blood Pressure Non-Invasive 94 1 BROOKE SANCHEZ MD [facility] 09-22-2022 17:13-0400 Heart rate 76 /min BROOKE SANCHEZ MD [facility] 09-22-2022 17:13-0400 Respiratory rate 18 /min BROOKE SANCHEZ MD [facility] 09-22-2022 17:13-0400 Systolic Blood Pressure Non-Invasive 115 1 BROOKE SANCHEZ MD [facility] 09-22-2022 15:49-0400 Diastolic Blood Pressure Non-Invasive 63 1 BROOKE SANCHEZ MD [facility] 09-22-2022 15:49-0400 Heart rate 67 /min BROOKE SANCHEZ MD [facility] 09-22-2022 15:49-0400 Respiratory rate 18 /min BROOKE SANCHEZ MD [facility] 09-22-2022 15:49-0400 Systolic Blood Pressure Non-Invasive 143 1 BROOKE SANCHEZ MD [facility] 09-22-2022 14:30-0400 Diastolic Blood Pressure Non-Invasive 77 1 BROOKE SANCHEZ MD [facility] 09-22-2022 14:30-0400 Heart rate 68 /min BROOKE SANCHEZ MD [facility] 09-22-2022 14:30-0400 Respiratory rate 18 /min BROOKE SANCHEZ MD [facility] 09-22-2022 14:30-0400 Systolic Blood Pressure Non-Invasive 172 1 BROOKE SANCHEZ MD [facility] 09-22-2022 14:15-0400 Body temperature 98.06 [degF] BROOKE SANCHEZ MD [facility] 09-22-2022 14:15-0400 Body weight 133.9 kg BROOKE SANCHEZ MD [facility] 05-16-2022 14:59-0500 Body height 165.[address] Trenton Wilson Work Phone: [facility] Work Phone: 05-16-2022 14:59-0500 Body mass index (BMI) [Ratio] 48.7 kg/m2 Dr. Trenton Wilson Work Phone: [facility] Work Phone: 05-16-2022 14:59-0500 Body temperature 98.5 [degF] Dr. Trenton Wilson Work Phone: [facility] Work Phone: 05-16-2022 14:59-0500 Body weight 132.[address] Trenton Wilson Work Phone: [facility] Work Phone: 05-16-2022 14:59-0500 Diastolic blood pressure 88 mm[Hg] Dr. Trenton Wilson Work Phone: [facility] Work Phone: 05-16-2022 14:59-0500 Heart rate 71 /min Dr. Trenton Wilson Work Phone: [facility] Work Phone: 05-16-2022 14:59-0500 Respiratory rate 14 /min Dr. Tretnon Wilson Work Phone: [facility] Work Phone: 05-16-2022 14:59-0500 SaO2% (BldA) [Mass fraction] 95 % Dr. Trenton Wilson Work Phone: [facility] Work Phone: 05-16-2022 14:59-0500 Systolic blood pressure 144 mm[Hg] Dr. Trenton Wilson Work Phone: [facility] Work Phone: 03-22-2022 09:52-0400 Body height 165.[address] Trenton Wilson Work Phone: [facility] Work Phone: 03-22-2022 09:52-0400 Body mass index (BMI) [Ratio] 47.9 kg/m2 Dr. Trenton Wilson Work Phone: [facility] Work Phone: 03-22-2022 09:52-0400 Body temperature 97 [degF] Dr. Trenton Wilson Work Phone: [facility] Work Phone: 03-22-2022 09:52-0400 Body weight 130.[address] Trenton Wilson Work Phone: [facility] Work Phone: 03-22-2022 09:52-0400 Diastolic blood pressure 90 mm[Hg] Dr. Trenton Wilson Work Phone: [facility] Work Phone: 03-22-2022 09:52-0400 Heart rate 71 /min Dr. Trenton Wilson Work Phone: [facility] Work Phone: 03-22-2022 09:52-0400 Respiratory rate 16 /min Dr. Trenton Wilson Work Phone: [facility] Work Phone: 03-22-2022 09:52-0400 SaO2% (BldA) [Mass fraction] 95 % Dr. Trenton Wilson Work Phone: [facility] Work Phone: 03-22-2022 09:52-0400 Systolic blood pressure 160 mm[Hg] Dr. Trenton Wilson Work Phone: [facility] Work Phone: 02-03-2022 09:21-0400 Body mass index (BMI) [Ratio] 47.2 kg/m2 Dr. Trenton Wilson Work Phone: [facility] Work Phone: 02-03-2022 09:21-0400 Body weight 128.[address] Trenton Wilson Work Phone: [facility] Work Phone: NEGATED: Highlighted [id number] 09:57-0400 BMI (Body Mass Index) 45.76 kg/m2 Sherry Moxcey NURSING EDUCATOR [facility] Work Phone: NEGATED: Highlighted [id number] 09:57-0400 Body weight 124.29 kg Sherry Moxcey NURSING EDUCATOR [facility] Work Phone: NEGATED: Highlighted [id number] 09:57-0400 Body weight 125 kg Sherry Moxcey NURSING EDUCATOR [facility] Work Phone: NEGATED: Highlighted [id number] 09:57-0400 BP Diastolic 64 mm[Hg] Sherry Moxcey NURSING EDUCATOR [facility] Work Phone: NEGATED: Highlighted [id number] 09:57-0400 BP Systolic 108 mm[Hg] Sherry Moxcey NURSING EDUCATOR [facility] Work Phone: NEGATED: Highlighted [id number] 09:57-0400 Height 165.1 cm Sherry Moxcey NURSING EDUCATOR [facility] Work Phone: NEGATED: Highlighted [id number] 09:57-0400 Height 165 cm Sherry Moxcey NURSING EDUCATOR [facility] Work Phone: NEGATED: Highlighted [id number] 09:57-0400 Pulse (Heart Rate) 56 /min Sherry Moxcey NURSING EDUCATOR [facility] Work Phone: Encounters Encounter Date Encounter Type Care Provider Facility Start: 12-04-2024 End: 12-04-2024 ambulatory Trenton Wilson Facility:[facility] Start: 10-14-2024 End: 10-14-2024 ambulatory Trenton Wilson Facility:[facility] Start: 10-14-2024 End: 10-14-2024 ambulatory Trenton Wilson Facility:[facility] Start: 08-21-2024 End: 08-21-2024 ambulatory MD JOSE MARIA BARRIENTOS Facility:[facility] Start: 08-21-2024 End: 08-21-2024 Patient encounter procedure JOSE MARIA BARRIENTOS [facility] Start: 08-19-2024 End: 08-19-2024 ambulatory Trenton Wilson Facility:[facility] Start: 06-02-2024 End: 06-02-2024 ambulatory Trenton Wilson Facility:[facility] Start: 05-20-2024 End: 05-20-2024 ambulatory Trenton Wilson Facility:[facility] Start: 04-15-2024 End: 04-15-2024 ambulatory Trenton Wilson Facility:[facility] Start: 09-22-2022 End: 09-22-2022 Emergency department patient visit BROOKE SANCHEZ MD Facility:[facility] Start: 09-22-2022 End: 09-22-2022 Emergency department patient visit BROOKE SANCHEZ MD [facility] Start: 05-16-2022 End: 05-17-2022 ambulatory CAKE WINDER-C [facility] Facility:[facility] Start: 05-16-2022 End: 05-16-2022 Patient encounter procedure TORREY F[facility] Start: 05-16-2022 End: 05-16-[address] Trenton Wilson Work Phone: [facility] Work Phone: Start: 05-16-2022 End: 05-16-[address] Trenton Wilson Work Phone: [facility] Start: 05-05-2022 End: 05-05-[address] Trenton Wilson Work Phone: [facility] Work Phone: Start: 05-05-2022 End: 05-05-[address] Trenton Wilson Work Phone: [facility] Start: 05-05-2022 End: 05-05-[address] Trenton Wilson Work Phone: [facility] Start: 03-22-2022 End: 03-23-2022 ambulatory TRENTON WILSON DO Facility:[facility] Start: 03-22-2022 End: 03-22-[address] Trenton Wilson Work Phone: [facility] Work Phone: Start: 03-22-2022 End: 03-22-2022 Patient encounter procedure TRENTON WILSON DO [facility] Start: 03-22-2022 End: 03-22-[address] Trenton Wilson Work Phone: [facility] Start: 03-20-2022 End: 03-20-[address] Trenton Wilson Work Phone: [facility] Work Phone: Start: 03-20-2022 End: 03-20-[address] Trenton Wilson Work Phone: [facility] Start: 02-03-2022 End: 02-03-[address] Trenton Wilson Work Phone: [facility] Start: 05-12-[address] Trenton Wilson Work Phone: [facility] Work Phone: Start: 01-22-2019 End: 01-22-2019 Patient encounter procedure Lu Perez MD Work Phone: [facility] Work Phone: Start: 04-17-2017 Ambulatory [facility] Procedures Date Procedure Procedure Detail Performing Clinician Start: 03-20-2022 Screening mammography D karolyn Wilson Work Phone: Start: 01-22-2019 End: 01-22-2019 Blood pressure within normal parameters - no follow-up required Lu ePrez MD Work Phone: Start: 01-22-2019 End: 01-22-2019 [...] Work Phone: Start: 11-09-2016 Cardiac catheterization TRENTON WLISON DO Catheterization of l eft heart TRENTON WILSON DO Comment on above: unknown results...pa tient doesnt remember Deviated nasal septu m (disorder) TRENTON WILSON DO H/O: hysterectomy TRENTON BR ANA DO H/O: surgery Status post sarita ection of deviated nasal septum Dr. Trenton Wilson Work Phone: H/O: tubal ligation History of t ubal ligation Dr. Trenton Wilson Work Phone: History of tonsillectomy History of tonsillectomy Dr. Trenton Wilson Work Phone: Tonsillectomy TRENTON WILSON DO NEGATED: Highlighted rowStart: 01-22-2019 End: 01-22-2019 Documentation of current medications Sherry Dee LPN Plan of Treatment Date Care Activity Detail Author Start: 05-16-2022 [facility] referral [facility] Work Phone: Start: 01-22-2019 End: 01-22-2019 Appointment Appointment [facility] Work Phone: Start: 01-22-2019 End: 01-22-2019 Njx anes&/strd w/img tfrml edrl lmbr/sac 1 lvl Transforaminal epidural injection [facility] Work Phone: Electrocardiographic procedure [facility] Work Phone: Patient referral [facility] Work Phone: XR Finger GE 2 Views [facility] Work Phone: Immunizations Immunization Date Immunization Notes Care Provider Rob stoddard 08-05-2019 tetanus toxoid, redu julia diphtheria toxoid, and acellular pertussis vaccine, adsorbed TRENTON WILSON DO [facility] 10-25-2018 tetanus toxoid, redu julia diphtheria toxoid, and acellular pertussis vaccine, adsorbed; Translations: [Boostrix (Tdap)] TRENTON WILSON DO [facility] 05-13-2018 influenza, seasonal, injectable Dr. Trenton Wilson Work Phone: [facility] Work Phone: 06-08-2017 influenza, seasonal, injectable Dr. Trenton Wilson Work Phone: [facility] Work Phone: 03-05-2016 tetanus toxoid, redu julia diphtheria toxoid, and acellular pertussis vaccine, adsorbed TRENTON WILSON DO [facility] Payers Date Payer Category Payer Medicare [id number] 2024 Self-pay [id number] 2021 Unknown [id number] 2016 Unknown [facility] [id number] 1962 Unknown [id number] 1962 Unknown [id number] 1962 Unknown [id number] 1962 Unknown [id number] Medicare MEDICARE PART A B [id number] Unknown Unknown [id number] Unknown [id number] Unknown [id number] Unknown [id number] Unknown [id number] Unknown [id number] Unknown [id number] Social History Date Type Detail Facility Start: 03-22-2022 End: 05-16-2022 Assertion Unknown if ever smoked [facility] Work Phone: Start: 09-24-2018 Tobacco smoking status Never s moked tobacco (finding) [facility] Start: 1960 Sex Assigned At Female A [facility] Sexual Orientation [facility] Start: 06-02-2019 Sex Female (finding) [facility] Functional Status Date Assessment Result Facility 09-22-2022 Functional Status [facility] 09-22-2022 Functional Status Standard Safet y ID band on, Allergy Band on, Call device within reach, Bed in low position, Wheels locked [facility] Mental Status Date Assessment Result Facility 09-22-2022 Mental Status Orientation Oriented x 4 [facility] 09-22-2022 Mental Status [facility] Clinical Notes 09-22-2022 to 08-21-2024 Note Date & Type Note Facility 08-21-2024 Note . MICRO - Microbiology PROCEDURE: Fecal Leukocytes [*1] SOURCE: Stool BODY SITE: COLLECTED DATE/TIME: 08/21/2024 10:37 EST RECEIVED DATE/TIME: 08/21/2024 18:54 EST START DATE/TIME: 08/21/2024 18:54 EST FREE TEXT SOURCE: FINAL REPORTS Final Report [] Verified Date/Time/Personnel: 08/21/2024 21:15 EST Microscopy: Fecal Leukocytes Absent From our data, approximately 50% of enteroinvasive bacterial pathogens will not be associated with stool WBC's. Performing Locations *1: This test was performed at: [facility], [address] [place] [address], [id number]- , [facility] 08-21-2024 Evaluation + Plan note Diagnostic Tests PendingPancreatic Elastase, Fecal 08/21/24Calprotectin, Fecal 08/21/24Fecal Fat, Qualitative 08/21/24 [facility] 09-22-2022 Hospital Discharge instructions Patient Education 09/22/2022 17:04:31 Chest Pain, [...] Swelling, pain or redness in one leg [phone] [employer]. [address] [place] [address]. All rights reserved. This information is not intended as a substitute for professional medical care. Always follow your healthcare professional's instructions. Follow Up Care 09/22/2022 14:14:43 With:TRENTON WILSON DO Address: [facility] [address] [address] [phone] When:2-4 days With:Go to emergency room if symptoms worsen Address:Unknown When:2-[address] [facility] 09-22-2022 Note Discharge Instructions Thank you for allowing [facility] to assist you with your healthcare needs. The following is important discharge information regarding your hospital visit. Diagnosis from Today's Visit Chest pain Chest pain What to Do Next Instructions from Your Care Team No qualifying data available. Post Acute Orders No qualifying data available. You Need to Schedule the Following Appointments Follow Up with TRENTON WILSON DO When Within 2-4 days Where: [facility] [address] [place] [id number] [phone] Follow Up with Go to emergency room [...] needed for migraine headache Unchanged thyroid desiccated (Patterson Thyroid 30 mg oral tablet) 1 tab(s) [...] Swelling, pain or redness in one leg [phone] [employer]. [address] [place] [address], [place] [id number]. All rights reserved. This information is not intended as a substitute for professional medical care. Always follow your healthcare professional's instructions. Additional Information VACCINATE! IT SAVES LIVES! Members of the community who have not yet received the COVID-19 vaccine and would like to receive it can visit one of [facility] vaccine clinics. There are many vaccine clinic locations within the [facility]. For locations and available times, please visit [email or web address] It is important to note that some COVID mobile vaccine clinics are held outdoors and may be canceled in rainy or stormy conditions. To learn more about pediatric vaccinations (ages 5-11), we invite you to visit the [facility] webpage. [email or web address] To learn more about the COVID-19 vaccine, we invite you to visit the CDC website for a list of frequently asked questions. https://www.cdc.gov/coronavirus/2 019-ncov/vaccines/faq.html [facility] Patient Portal Access Instructions: Stay connected with your healthcare team and access your personal medical information anytime with the [facility] Patient Portal. If you would like a full copy of your medical records please contact the [facility] Medical Records Department Sunday through Sunday between 8a.m. and 4:30p.m. Please follow the directions below to access the portal: 1.Access the email account you provided upon registration to the [facility].2.Look for an invitation email from [facility].3.Open the email and access the invitation link: Accept Invitation to [facility]4.Fill in the required deluna to create your account. Sign into [email or web address] with your username and password that you [...] you will allow to register on the [facility] Patient Portal for access to your information. You can also access the [facility] Patient Portal on the [employer]. Simply click on Health Records under Health Data and then click on the [employer] logo. HOW TO SAFELY DISPOSE OF PRESCRIPTION [...] Call your local pharmacy or go to http://Imperva.[employer] Travel Service/5R0Wx0q to find one close to you.3.Make use of household items: Use cat litter or old coffee grounds to dispose medications if other options are not available. Mix your drugs with these household products, seal them in an airtight container and throw it into the garbage. Call [facility]: [phone] to be sure your drugs can be [...] been reviewed and explained to me and I,LIAN DAMON understand my current condition and have read and understand these discharge instructions. I have received a written copy of the plan/instructions. If I have questions, I am aware that I should contact my doctor. Patient/Concrete Block Layer Signature: Date/Time: Relationship to Patient: ____ Witness Name/Signature: Date/Time: [facility] 09-22-2022 Note ORIGINAL EXAMINATION: CTA OF THE [...] for Exam: chest pain; suspect PE FINDINGS: Kkvl-bd-ehkekwzp degenerative changes are noted in the spine. [...] Sign Date: 09/22/2022 4:12:03 PM Ordering Provider: [facility] 09-22-2022 Note ORIGINAL EXAMINATION: CTA OF THE [...] for Exam: chest pain; suspect PE FINDINGS: Dvoc-xw-yuleewru degenerative changes are noted in the spine. [...] Sign Date: 09/22/2022 4:12:03 PM Ordering Provider: [facility] 09-22-2022 Note ORIGINAL EXAMINATION: ONE XRAY VIEW [...] Sign Date: 09/22/2022 2:52:51 PM Ordering Provider: [facility] 09-22-2022 Note ORIGINAL EXAMINATION: ONE XRAY VIEW [...] Sign Date: 09/22/2022 2:52:51 PM Ordering Provider: [facility] Evaluation + Plan note No data available for this section [facility] Evaluation note Diagnosis Onset Date GERD (gastroesophageal reflux disease) chronic Irritable bowel syndrome (IBS) chronic Back pain acute Fatty liver acute GERD (gastroesophageal reflux disease) chronic Hyperlipidemia chronic Schizophrenia [facility] Work Phone: Evaluation note* Diagnosis Onset Date Resolution Status GERD (gastroesophageal reflux disease) chronic Irritable bowel syndrome (IBS) chronic Back pain acute Fatty liver acute GERD (gastroesophageal reflux disease) chronic Hyperlipidemia chronic Schizophrenia chronic Arthritis acute Fatty liver acute Small intestinal bacterial overgrowth acute GERD (gastroesophageal reflux disease) chronic Irritable bowel syndrome (IBS) [facility] Work Phone: Evaluation note* Diagnosis Onset Date Resolution Status GERD (gastroesophageal reflux disease) chronic Irritable bowel syndrome (IBS) chronic Back pain acute Fatty liver acute GERD (gastroesophageal reflux disease) chronic Hyperlipidemia chronic Schizophrenia chronic Arthritis acute Fatty liver acute Small intestinal bacterial overgrowth acute GERD (gastroesophageal reflux disease) chronic Irritable bowel syndrome (IBS) chronic Polyarthralgia chronic Schizophrenia [facility] Work Phone: Hospital Discharge instructions No data available for this section [facility] Progress note No data available for this section [facility] Summary Purpose Family History No Family History Records Found Relationship Condition Age at Onset Recorded Date/T rony sister Arthritis Unknown Hypertension Unknown brother Arthritis Unknown mother Arthritis Unknown father Hypertension Unknown Cerebrovascular accident (CVA) Unknown uncle Hypertension Unknown Advance Directives No Advanced Directives Records Found Advance Directive Response Recorded Date/ Time Living Will Yes April 08 3:10pm Power of Scanning Supervisor Yes April 08, 021 3:10pm Advance Directive Response Recorded Date/ Time Living Will Yes April 08 2:10pm Power of Scanning Supervisor Yes April 08, 021 2:10pm Chief Complaint Chief Complaint Description Start Date [...] has not been provided by the sender. Chief Complaint and Reason for Visit Chief Complaint 8 WK FU SCREENING 6 M FU Reason for Visit GERD (gastroesophage al reflux disease) Irritable bowel syndrome (IBS) Back pain Fatty liver GERD (gastroesophageal reflux disease) Hyperlipidemia Schizophrenia Chief Complaint 8 WK FU SCREENING 6 M FU 3 MO FU INT LABS Reason for Visit GERD (gastroesophage al reflux disease) Irritable bowel syndrome (IBS) Back pain Fatty liver GERD (gastroesophageal reflux disease) Hyperlipidemia Schizophrenia Arthritis Fatty liver Small intestinal bacterial overgrowth GERD (gastroesophageal reflux disease) Irritable bowel syndrome (IBS) Chief Complaint 8 WK FU SCREENING 6 M FU 3 MO FU INT LABS Painful left thumb, unable to bend Reason for Visit GERD (gastroesophage al reflux disease) Irritable bowel syndrome (IBS) Back pain Fatty liver GERD (gastroesophageal reflux disease) Hyperlipidemia Schizophrenia Arthritis Fatty liver Small intestinal bacterial overgrowth GERD (gastroesophageal reflux disease) Irritable bowel syndrome (IBS) Polyarthralgia Schizophrenia Additional Source Comments INFORMATION SOURCE (unrecogn ized section and content) DATE CREATED AUTHOR 01/01/2018 [facility] DATE CREATED AUTHOR AUTHOR'S ORGANIZ ATION 09/29/2022 [facility] ([place]) DATE CREATED AUTHOR AUTHOR'S ORGANIZ ATION 08/26/2024 [facility] DATE CREATED AUTHOR AUTHOR'S ORGANIZ ATION 12/06/2024 [facility] Reason for Visit (unrecogniz ed section and content) Reason For Visit Description Postop - 1st visit Preliminary reason f or visit data, not yet signed by the author as of back post Bilateral L5-S1 transforaminal epidural steroid injection (the patient has lumbarized S1) on 10/29/2018 Care Team (unrecognized sect ion and content) Care Team Personnel Name: Rosalba Avalos PT Position: P3 Scheduling - Consulting Technical Director Advanced Member Role: Other Name: TRENTON WILSON DO Member Role: Primary Care Physician Address: Address: [facility] [address] [place] [address] Care Team Related Persons Name: ARIA DAMON Address: Home [address] [place] [address] [place] Name: BRIGITTE DAMON Address: Home [address] [place] [address] [place] Name: BRIGITTE DAMON Address: Home [address] [place] [address] [place] Name: BRIGITTE DAMON Address: Home [address] [place] [address] [place] Name: BRIGITTE DAMON Address: Home [address] [place] [address] Name: BRIGITTE DAMON Address: Home [address] [place] [address] [place] Name: BRIGITTE DAMON Address: Home [address] [place] [address] [place] Name: BRIGITTE DAMON Address: Home [address] Care Team Personnel Name: Rosalba Avalos PT Position: P3 Scheduling - Consulting Technical Director Advanced Member Role: Other Name: TRENTON WILSON DO Member Role: Primary Care Physician Address: Address: [address] [place] [address]- Care Team Related Persons Name: ARIA DAMON Address: Home [address] [place] [address] [place] Name: BRIGITTE DAMON Address: Home [address] [place] [address] [place] Name: BRIGITTE DAMON Address: Home [address] [place] [address] [place] Name: BRIGITTE DAMON Address: Home [address] [place] [address] [place] Name: BRIGITTE DAMON Address: [address] Name: BRIGITTE DAMON Address: Home [address] [place] [address] [place] Name: BRIGITTE DAMON Address: Home [address] [place] [address] Name: BRIGITTE DAMON Address: [address] Goals (unrecognized section and content) Goals may be documented in a n alternate section Patient Care team informatio n (unrecognized section and content) Care Team Personnel Name: Rosalba Avalos PT Position: P3 Scheduling - Consulting Technical Director Advanced Member Role: Other Name: TRENTON WILSON DO Member Role: Primary Care Physician Address: Address: [address] [place] [address]- [place] Name: DONTE Paris Position: AO RN Member Role: ED RN Name: BROOKE SANCHEZ MD Position: ED Physician Member Role: ED Physician Address: Address: [facility] [address] [place] [address]- Care Team Related Persons Name: ARIA DAMON Address: Home [address] [place] [address] [place] Name: BRIGITTE DAMON Address: Home [address] [place] [address] [place] Name: BRIGITTE DAMON Address: [address] Name: JONATHAN DAMONHANIEL Address: Home [address] [place] [address] [place] Name: JONATHAN DAMONHANIEL Address: Home [address] [place] [address] Name: JONATHAN DAMONHANIEL Address: Home [address] [facility] [address] Name: JONATHAN DAMONHANIEL Address: Home [address] [facility] [address] Name: JONATHAN DAMONHANIEL Address: Home [address] [facility] [address] Care Team Personnel Name: Rosalba Avalos Clerk Sarai PT Position: P3 Scheduling - Consulting Technical Director Advanced Member Role: Other Name: TRENTON WILSON DO Member Role: Primary Care Physician Address: [facility] [address] Telecom: Care Team Related Persons Name: ARIA DAMON Name: BRIGITTE DAMON Name: BRIGITTE DAMON Name: BRIGITTE DAMON Name: BRIGITTE DAMON Name: BRIGITTE DAMON Name: BRIGITTE DAMON Name: BRIGITTE DAMON FOR RECORDS PERTAINING TO PATIENTS WHO ARE [...] BE BASED ON THE PRIMARY CLINICAL RECORDS. [employer] provides no warranty or guarantee of the accuracy or completeness of information in this document.
[2025-04-01 10:28] LABS: Hematocrit 35.6 % (37-47); Hemoglobin 11.6 g/dL (12.0-15.0); Immature Granulocytes Count 0.000 X10^3/uL (0.0-0.0); Mean Corp Hgb Conc 32.6 g/dL (32-36); Mean Corpuscular Volume 93.2 fL (81-99); Mean Platelet Vol. 11.5 fl (6.2-12.0); NRBC Flagged by Analyzer 0 % (0-5); Platelet Count 182 K/mm3 (150-450); RBC Distribution Width CV 14.4 % (11.6-14.6); RBC Distribution Width SD 48.8 fl (35.1-43.9); Red Blood Count 3.82 M/mm3 (4.2-5.4); White Blood Count 5.3 K/mm3 (4.4-11.0)
[2025-04-01 11:11] LABS: AST(SGOT) 19 U/L (<=31); Alanine Aminotransfer ALT/SGPT 20 U/L (<=34); Albumin, Serum 4.3 g/dL (3.4-4.8); Alkaline Phosphatase 72 U/L (35-104); Anion Gap 12 (5-15); BUN 14 mg/dL (4-19); BUN/Creat Ratio 16.1 RATIO (10-20); Calcium,Total 9.3 mg/dL (7.6-11.0); Carbon Dioxide 24.9 mmol/L (21.0-32.0); Chloride 105 mmol/L (98-108); Globulin 3.0 g/dL (2.2-4.2); Glucose 90 mg/dL (70-99); Potassium 4.3 mmol/L (3.3-5.1)
[2025-04-01 11:18] LABS: CRP < 3.00 mg/L (0.0-3.0)
== END | disposition home or self-care (01) ==
LOC: LAB 08:48
PROVIDERS: PCP Family Medicine; Referring Provider Internal Medicine; Visit Provider Internal Medicine
DX: R19.7 Diarrhea, unspecified (principal); R73.03 Prediabetes; K76.0 Fatty (change of) liver, not elsewhere classified
CPT/HCPCS: 36415; 80053; 83036; 85025; 86140

== ENCOUNTER → 2025-06-01 | Outpatient (CLI) | payer MEDICARE, SELFPAY ==
--- NOTE | 2025-06-01 08:35 | US_ITS ---
PROCEDURE: ABD LIMITED W/ ELASTOGRAPHY REASON FOR EXAM: HEPATOMEGALY COMPARISON: Prior study dated June 02, 2024. TECHNIQUE: Procedure Code: [id number] Modality: US Procedure: ABD LIMITED W/ ELASTOGRAPHY Right upper quadrant abdominal ultrasound. [facility] ElastQ Imaging shear wave elastography for non-invasive assessment of liver tissue stiffness. [facility] EPIQ Elite. FINDINGS: LIVER: Size: Enlarged (hepatomegaly) Length: 18.6 cm Echotexture: Diffusely echogenic suggesting fatty infiltration Contour: Normal Lesions: None identified Elastography: EQI Med: 6.3 kPa EQI Med Ananth: 1.4 m/s IQR/Med: 8.4 %* GALLBLADDER: No stones sludge wall thickening or tenderness. COMMON BILE DUCT: Normal measuring 3.9 mm . PANCREAS: Normal Visualized portions of the right kidney are unremarkable. No right upper quadrant ascites. Spleen: The spleen measures 13.7 cm x 4.1 cm 3.8 cm. This is within normal limits. US/ABD Limited w/ Elastography IMPRESSION: Moderate hepatic fibrosis. Hepatomegaly. Diffuse fatty infiltration of the liver. Reference Values: SRU <1.37 m/s (5.7kPa): No to mild fibrosis 1.37 m/s - 2.2 m/s: Moderate to severe fibrosis >2.2 m/s (15kPa): Significant fibrosis / cirrhosis METAVIR Score F2 or higher: 1.34 m/s (5.7kPa) F3 or higher: 1.55 m/s (7.3kPa) F4: 1.80 m/s (10kPa) * If the IQR/Med is >30%, the variance in the measurements is a large and the a ccuracy of the measurement may be in question. Reading Location: [place] [id number]
[2025-06-01 09:14] LABS: Hematocrit 36.6 % (37-47); Hemoglobin 12.3 g/dL (12.0-15.0); Immature Granulocytes Count 0.010 X10^3/uL (0.0-0.0); Mean Corp Hgb Conc 33.6 g/dL (32-36); Mean Corpuscular Volume 92.0 fL (81-99); Mean Platelet Vol. 11.3 fl (6.2-12.0); NRBC Flagged by Analyzer 0 % (0-5); Platelet Count 210 K/mm3 (150-450); RBC Distribution Width CV 14.1 % (11.6-14.6); RBC Distribution Width SD 47.4 fl (35.1-43.9); Red Blood Count 3.98 M/mm3 (4.2-5.4); White Blood Count 5.0 K/mm3 (4.4-11.0)
[2025-06-01 09:17] LABS: Prothrombin Time (Protime)PT. 13.4 SECONDS (11.7-14.9)
[2025-06-01 09:57] LABS: AST(SGOT) 20 U/L (<=31); Alanine Aminotransfer ALT/SGPT 16 U/L (<=34); Albumin, Serum 4.3 g/dL (3.4-4.8); Alkaline Phosphatase 76 U/L (35-104); Anion Gap 11 (5-15); BUN 16 mg/dL (4-19); BUN/Creat Ratio 18.3 RATIO (10-20); Bilirubin, Direct 0.14 mg/dL (0.00-0.30); CRP < 3.00 mg/L (0.0-3.0); Calcium,Total 9.3 mg/dL (7.6-11.0); Carbon Dioxide 26.4 mmol/L (21.0-32.0); Chloride 104 mmol/L (98-108); Cholesterol 166 mg/dL (<=200); Globulin 3.1 g/dL (2.2-4.2); Glucose 102 mg/dL (70-99); Low Density Lipoprotein Calc. 80 mg/dL; Potassium 4.0 mmol/L (3.3-5.1); Triglycerides 163 mg/dL; Very Low Density Lipoprotein 33 mg/dL (5-40); Vitamin D,25 Hydroxy 14.5 ng/mL (30-100); cholesterol:hdl ratio screen 2.87
[2025-06-02 15:08] LABS: Immunoglobulin A 157 mg/dL (87-352)
== END | disposition home or self-care (01) ==
PROVIDERS: PCP Family Medicine; Referring Provider Internal Medicine; Visit Provider Internal Medicine
DX: K76.0 Fatty (change of) liver, not elsewhere classified (principal); R73.03 Prediabetes; M54.9 Dorsalgia, unspecified; K22.70 Barrett's esophagus without dysplasia; K58.9 Irritable bowel syndrome, unspecified; R19.7 Diarrhea, unspecified; K63.89 Other specified diseases of intestine; E03.9 Hypothyroidism, unspecified; E78.5 Hyperlipidemia, unspecified
CPT/HCPCS: 36415; 76705; 76981; 80053; 80061; 82248; 82306; 82784; 83036; 83516; 84439; 84443; 85025; 85610; 86140; 86255